=== PATIENT | female | born 1945 | race Caucasian/White ===

== ENCOUNTER → 2017-09-15 | Outpatient (CLI) | payer OTHER | LOC: BMCIMAGING 09:39 | PROVIDERS: ATTEND Family Medicine | DX: J40 Bronchitis, not specified as acute or chronic (principal) ==

== ENCOUNTER → 2017-09-26 | Outpatient (CLI) | payer OTHER | LOC: BMCIMAGING 13:34 | PROVIDERS: ATTEND Internal Medicine | DX: R53.83 Other fatigue (principal) ==

== ENCOUNTER → 2017-10-28 | Outpatient (CLI) | payer OTHER | LOC: BMCIMAGING 14:16 | PROVIDERS: ATTEND Internal Medicine | DX: R53.83 Other fatigue (principal); R09.02 Hypoxemia; Z87.01 Personal history of pneumonia (recurrent) ==

== ENCOUNTER 2018-01-05 23:00 | Observation (INO) | payer OTHER ==
--- NOTE | 2018-01-05 23:27 | EDPHY ---
H & P Stated Complaint: migraine x3 days, disoriented HPI/ROS: Chief complaint: Headache History of present illness: This is a 72-year-old female brought to the emergency department by her family for evaluation of a headache. Patient has a history of migraine headaches which she normally takes intranasal Imitrex. However this headache is different in that it is persistent, she has had it for the last 5 days. She has taken multiple doses of her Imitrex without resolution of symptoms. In addition she has had associated nausea without vomiting. This evening she started to have trouble hearing. Her daughter went to check on her and found her passed out on the couch downstairs and she was very difficult to arouse to the point the daughter almost called 911. However the patient eventually woke up. At that time the daughter brought to the patient to the emergency room. Patient states she does feel extremely dehydrated. She denies other pain including no chest pain, no shortness of breath, no cough, no abdominal pain. No paresthesias, no weakness or paralysis , no bowel or bladder dysfunction. Review of systems: A 10 point review of systems was obtained and other than described above was negative - Personal History Current Tetanus/Diphtheria Vaccine: Yes Tetanus Vaccine Date: <10yrs - Medical/Surgical History Hx Asthma: No Hx Chronic Respiratory Disease: No Hx Diabetes: No Hx Cardiac Disease: No Hx Renal Disease: No Hx Cirrhosis: No Hx Alcoholism: No Hx HIV/AIDS: No Hx Splenectomy or Spleen Trauma: No Other PMH: CHRONIC PAIN POST SHINGLES / ULCERS/DIVERTICULOSIS. Migraines - Social History Smoking Status: Never smoked - Physical Exam Exam: General Appearance: Alert, nontoxic Eyes: Pupils equal and round no pallor or injection. ENT, Mouth: Mucous membranes appear dry. Respiratory: There are no retractions, lungs are clear to auscultation. Cardiovascular: Regular rate and rhythm. Gastrointestinal: Abdomen is soft and non tender, no masses, bowel sounds normal. Neurological: Alert and oriented x4. Cranial nerves 2-12 grossly intact do appear intact. Strength and sensation intact and symmetrical. No pronator drift. No meningismus. Skin: Warm and dry, no rashes. Musculoskeletal: Neck is supple non tender. Extremities are symmetrical, full range of motion. Psychiatric: Patient is oriented X 3, there is no agitation. Constitutional: Initial Vital Signs Temperature (C) 36.5 C 01/05/18 23:02 Heart Rate 101 H 01/05/18 23:02 Respiratory Rate 18 01/05/18 23:02 Blood Pressure 117/59 L 01/05/18 23:02 O2 Sat (%) 90 L 01/05/18 23:02 O2 Delivery Mode Room Air Allergies/Adverse Reactions: hydrocodone bitartrate [From Vicodin] Allergy (Severe, Verified 04/04/16 11:25) Vomiting prochlorperazine [From Compazine] Allergy (Intermediate, Verified 04/04/16 11:25 ) Home Medications: Medication Instructions Recorded SUMAtriptan [Imitrex Nasal [place]] 20 mg NS DAILY PRN 07/18/15 Ondansetron Odt [Zofran Odt 4 mg 4 mg PO Q4 PRN #15 tab 07/21/15 (*)] oxyCODONE CR [Oxycontin] 20 mg PO TID 04/25/16 Acetaminophen [Tylenol 325mg (*)] 650 mg PO Q4 PRN #0 tab 04/29/16 Ondansetron Odt [Zofran Odt 4 mg 4 mg PO Q4 PRN #14 tab 04/29/16 (*)] oxyCODONE IR [Oxycodone Ir (RX)] 5 mg PO Q4H PRN #20 tab 04/29/16 Neurontin 01/05/18 Medical Decision Making Differential Diagnosis: Included but not limited to dehydration, anemia, electrolyte disturbances, cardiac dysrhythmia, ACS, CVA, migraine syndrome, infections including urinary tract infection or pulmonary infection Departure - Departure Referrals: Kate Lee MD [Primary Care Provider] - As per Instructions
[2018-01-05] MEDS ORDERED: NS 1,000 ML IV ONE (23:28)
--- NOTE | 2018-01-05 23:32 | CPEKG ---
Heart Rate: 94 RR Interval: 638 P-R Interval: 152 QRSD Interval: 92 QT Interval: 412 QTC Interval: 516 P Drake: 31 QRS Drake: 16 T Wave Drake: 3 EKG Severity - ABNORMAL ECG - EKG Impression: SINUS RHYTHM EKG Impression: BORDERLINE T ABNORMALITIES, ANTERIOR LEADS EKG Impression: PROLONGED QT INTERVAL Electronically Signed By: Lalito Silva 06-Jan-2018 08:25:28
[2018-01-05 23:56] LABS: PLATELET COUNT 297 10^3/uL (150-400)
[2018-01-06] MEDS ORDERED: ASPIRIN 325 MG TAB PO ONE (00:24)
[2018-01-06] MEDS ORDERED: IOPAMIDOL (ISOVUE 370) 100 ML BTL IV ONE (01:09)
[2018-01-06] MEDS ORDERED: ONDANSETRON 4 MG/2 ML VIAL IVP PRN (01:56)
[2018-01-06] MEDS ORDERED: ACETAMINOPHEN 325 MG TAB PO PRN (01:56)
[2018-01-06] MEDS ORDERED: ONDANSETRON DISINTEGRATING 4 MG TAB PO PRN (01:56)
[2018-01-06 01:57] LABS: INR 1.07 (0.83-1.16); PROTIME(PATIENT) 14.1 SEC (12.0-15.0)
--- NOTE | 2018-01-06 03:35 | PDGENHP ---
History and Physical - Chief Complaint Somnolence - History of Present Illness 72 yo F w/ hx of post-herpetic neuralgia and resultant chronic pain presents with somnolence and hypoxia. Patient lives with her daughter. Daughter found patient somnolent and difficult to arouse so EMS was called. Upon arrival in ED patient was reported to be hypoxic to the 70's on RA. She does not wear O2 usually. Of note, patient took Oxycontin 20 mg, oxycodone 10 mg, and gabapentin 300 mg this afternoon. Patient has been on stable dose of opiates for over a year but recently started taking gabapentin, which she states makes her sleepy and unsteady on her feet. Additionally, she has noted congestion, sore throat, and dry cough for the last week. Finally, she has noticed new leg swelling over the last couple of weeks as well. History Information - Allergies/Home Medication List Allergies/Adverse Reactions: hydrocodone bitartrate [From Vicodin] Allergy (Severe, Verified 04/04/16 11:25) Vomiting prochlorperazine [From Compazine] Allergy (Intermediate, Verified 04/04/16 11:25 ) Home Medications: SUMAtriptan [Imitrex Nasal [place]] 20 mg NS DAILY PRN 07/18/15 [Last Taken Unknown] oxyCODONE CR [Oxycontin] 20 mg PO TID 04/25/16 [Last Taken Unknown] Neurontin 01/05/18 [Last Taken Unknown] I have personally reviewed and updated: family history, medical history - Past Medical History Additional medical history: Post-herpetic neuralgia - Family History Additional family history: CHF. Parkinson's - Social History Smoking Status: Never smoked Review of Systems Review of Systems: ROS: 10pt was reviewed & negative except for what was stated in HPI & below Physical Exam Physical Exam: Temp Pulse Resp BP Pulse Ox 36.3 C 87 18 142/78 H 96 01/06/18 02:28 01/06/18 02:28 01/06/18 02:28 01/06/18 02:28 01/06/18 02:28 O2 (L/minute) 4 Constitutional: no apparent distress, not in pain Eyes: PERRL, EOMI Ears, Nose, Mouth, Throat: moist mucous membranes, no oral mucosal ulcers Cardiovascular: regular rate and rhythym, no murmur, rub, or gallop, JVD (3 cm above clavicle @ 45 degrees), edema (Trace b/l ANDREW) Respiratory: no respiratory distress, inspiratory crackles (Mild, bibasilar) Gastrointestinal: normoactive bowel sounds, soft, non-tender abdomen Skin: warm, normal color Musculoskeletal: full muscle strength, no muscle tenderness Neurologic: AAOx3, CN II-XII Intact Psychiatric: interacting appropriately, not anxious Lab Data & Imaging Review 01/05/18 23:45 01/05/18 23:45 WBC 9.79 10^3/uL (3.80-9.50) H 01/05/18 23:45 RBC 4.43 10^6/uL (4.18-5.33) 01/05/18 23:45 Hgb 11.4 g/dL (12.6-16.3) L 01/05/18 23:45 Hct 36.8 % (38.0-47.0) L 01/05/18 23:45 MCV 83.1 fL (81.5-99.8) 01/05/18 23:45 MCH 25.7 pg (27.9-34.1) L 01/05/18 23:45 MCHC 31.0 g/dL (32.4-36.7) L 01/05/18 23:45 RDW 15.3 % (11.5-15.2) H 01/05/18 23:45 Plt Count 297 10^3/uL (150-400) 01/05/18 23:45 MPV 8.7 fL (8.7-11.7) 01/05/18 23:45 Neut % (Auto) 87.3 % (39.3-74.2) H 01/05/18 23:45 Lymph % (Auto) 7.7 % (15.0-45.0) L 01/05/18 23:45 Gregg % (Auto) 3.6 % (4.5-13.0) L 01/05/18 23:45 Eos % (Auto) 0.1 % (0.6-7.6) L 01/05/18 23:45 Baso % (Auto) 0.3 % (0.3-1.7) 01/05/18 23:45 Nucleat RBC Rel Count 0.0 % (0.0-0.2) 01/05/18 23:45 Absolute Neuts (auto) 8.55 10^3/uL (1.70-6.50) H 01/05/18 23:45 Absolute Lymphs (auto) 0.75 10^3/uL (1.00-3.00) L 01/05/18 23:45 Absolute Monos (auto) 0.35 10^3/uL (0.30-0.80) 01/05/18 23:45 Absolute Eos (auto) 0.01 10^3/uL (0.03-0.40) L 01/05/18 23:45 Absolute Basos (auto) 0.03 10^3/uL (0.02-0.10) 01/05/18 23:45 Absolute Nucleated RBC 0.00 10^3/uL (0-0.01) 01/05/18 23:45 Immature Gran % 1.0 % (0.0-1.1) 01/05/18 23:45 Immature Gran # 0.10 10^3/uL (0.00-0.10) 01/05/18 23:45 PT 14.1 SEC (12.0-15.0) 01/06/18 00:00 INR 1.07 (0.83-1.16) 01/06/18 00:00 APTT 26.2 SEC (23.0-38.0) 01/06/18 00:00 D-Dimer 1.61 ug/mLFEU (0.00-0.50) H 01/06/18 00:00 Sodium 135 mEq/L (135-145) 01/05/18 23:45 Potassium 3.5 mEq/L (3.5-5.2) 01/05/18 23:45 Chloride 97 mEq/L (97-110) 01/05/18 23:45 Carbon Dioxide 28 mEq/l (22-31) 01/05/18 23:45 Anion Gap 10 mEq/L (8-16) 01/05/18 23:45 BUN 18 mg/dL (7-23) 01/05/18 23:45 Creatinine 1.0 mg/dL (0.6-1.0) 01/05/18 23:45 Estimated GFR 55 01/05/18 23:45 Glucose 148 mg/dL (70-100) H 01/05/18 23:45 Calcium 8.2 mg/dL (8.5-10.4) L 01/05/18 23:45 Magnesium 2.1 mg/dL (1.6-2.3) 01/05/18 23:45 Troponin I 0.061 ng/mL (0.000-0.034) H 01/05/18 23:45 NT-Pro-B Natriuret Pep 2500 pg/mL (0-125) H 01/05/18 23:45 Urine Color YELLOW 01/06/18 01:47 Urine Appearance CLEAR 01/06/18 01:47 Urine pH 6.0 (5.0-7.5) 01/06/18 01:47 Ur Specific [place] 1.032 (1.002-1.030) H 01/06/18 01:47 Urine Protein NEGATIVE (NEGATIVE) 01/06/18 01:47 Urine Ketones NEGATIVE (NEGATIVE) 01/06/18 01:47 Urine Blood 1+ (NEGATIVE) H 01/06/18 01:47 Urine Nitrate NEGATIVE (NEGATIVE) 01/06/18 01:47 Urine Bilirubin NEGATIVE (NEGATIVE) 01/06/18 01:47 Urine Urobilinogen 2.0 EU (0.2-1.0) H 01/06/18 01:47 Ur Leukocyte Esterase NEGATIVE (NEGATIVE) 01/06/18 01:47 Urine RBC 1-3 /hpf (0-3) 01/06/18 01:47 Urine WBC 1-3 /hpf (0-3) 01/06/18 01:47 Ur Epithelial Cells TRACE /lpf (NONE-1+) 01/06/18 01:47 Urine Mucus TRACE /lpf (NONE-1+) 01/06/18 01:47 Urine Glucose NEGATIVE (NEGATIVE) 01/06/18 01:47 Imaging Review: CTPE Prelim: No PE or pneumonia Multiple pulmonary nodules and thyroid nodules Called to ER @ 0210 hrs Visualized and Interpreted EKG results: Yes EKG Interpretation: Positive for: normal sinsus rhythm Assessment & Plan Assessment: 72 yo F w/ chronic pain 2/2 herpetic neuralgia presents with somnolence and hypoxia. Plan: 1. AHRF - I suspect this is multifactorial from somnolence 2/2 medications, possible new CHF, and viral URI. Patient significantly hypoxic on arrival but improved over time without intervention. She is currently only requiring 2 L/ min O2 and not in respiratory distress. CTPE negative for PE or pneumonia. - Incentive spirometry, wean O2 as able - Respiratory PCR - Management of suspected CHF as below 2. Suspected acute CHF exacerbation - Suspected on the basis of elevated JVP, new lower extremity edema, crackles, and elevated BNP. Overall this is mild and most likely only diastolic dysfunction. Patient has no prior diagnosis of CHF. - TTE ordered for evaluation - Furosemide 20 mg IV x1 - Cardiac diet, daily weights, monitor I/Os 3. Indeterminate troponin - Most likely demand ischemia from hypoxia; no complaints of chest pain. - Trend cardiac enzymes 4. Chronic pain - 2/2 post-herpetic neuralgia. She takes Oxycontin and oxycodone as outpatient. She recently started taken gabapentin, which has led to increased somnolence. - Discontinue gabapentin, decrease opiates as able over time Diet - Cardiac Code - Full Ppx - LMWH Dispo - Admit under observation status
[2018-01-06 06:34] LABS: PLATELET COUNT 325 10^3/uL (150-400)
[2018-01-06 08:29] VITALS: RESP 16
[2018-01-06] MEDS ORDERED: ENOXAPARIN 40 MG/0.4 ML SYR SC SCH (09:00)
[2018-01-06] MEDS ORDERED: FUROSEMIDE 20 MG/2 ML VIAL IVP ONE (09:00)
--- NOTE | 2018-01-06 10:40 | ECHO ---
[email or web address] [address] [address] Main: [phone] Fax: [email or web address] Echocardiogram Name: EMILIA YANG MR#: [id number] Study Date: 01/06/2018 Study Time: 07:54 AM Date of : 1945 Age: 72 year(s) Height: 162.6 cm (64 in.) Weight: 63.5 kg (140 lb.) BSA: 1.68 m2 Gender: Female Examination: Echo Indication: Question new CHF Image Quality: Contrast: Requested by: Khoa Bae BP: 166 mmHg/92 mmHg Heart Rate: Rhythm: Indication: Question new CHF Procedure Staff Gandy Dancer: Keyona Allison RDCS Reading Physician: Jace Denis MD Requesting Provider: Conclusions: Normal study Measurements: Chambers Valvular Assessment AV/MV Valvular Assessment TV/PV Normal Normal Normal Name Value Range Name Value Range Name Value Range IVSd (2D): 0.7 cm (0.6 cm-1.1 AV meanP mmHg ( - ) TR Vmax: 2.38 mm/s ( - ) cm) MV E Vmax: 0.97 m/s ( - ) TR PGmax: 23 mmHg ( - ) LVDd (2D): 5.4 cm (3.9 cm-5.3 MV A Vmax: 0.74 m/s ( - ) syst. PAP: 28 mmHg ( - ) cm) MV E/A: 1.31 ( - ) LVDs (2D): 3.0 cm (2.1 cm-4 cm) LVPWd (2D): 0.9 cm ( - ) LVOTd 2.0 cm 2.0 cm mm LVEF (MOD4): 74 % (>=55 %) EF Range: 65-70 % Continued Measurements: Chambers Valvular Assessment AV/MV Valvular Assessment TV/PV Name Value Name Value Name Value LADs: 4.3 cm MV E/E' Septal: 12.40 CVP (est.): 5 mmHg LADs Lon.0 cm MV E/E' Lateral: 12.90 LA Area: 21.8 cm2 Additional Vessels Name Value Ao Ascendin.3 cm Patient: EMILIA YANG Study Date: 01/06/2018 Page 1 of 2 07:54 AM Findings: Left Ventricle: Normal size left ventricle. No LV hypertrophy. Normal global systolic LV function. The ejection fraction is estimated to be 65-70 %. No regional wall motion abnormality. Right Ventricle: Normal size right ventricle. Left Atrium: The left atirum is borderline dilated. Right Atrium: The right atrium is normal in size. Mitral Valve: The mitral valve is normal in appearance and function. Mild mitral valve regurgitation is present. Aortic Valve: The aortic valve is normal in appearance and function. Tricuspid Valve: The tricuspid valve is normal in appearance and function. Mild tricuspid regurgitation is present. The pulmonary artery pressure is normal. Pulmonic Valve: The pulmonic valve is normal in appearance and function. Aorta: The aorta is normal. Pericardium: No pericardial effusion. There is pericardial fat. (No Signature Object) Patient: EMILIA YANG Study Date: 01/06/2018 Page 2 of 2 07:54 AM D:_[id number]
[2018-01-06 11:36] VITALS: BP 135/74; PULSE 90; TEMP 97.8; O2SAT 94
--- NOTE | 2018-01-06 12:33 | ASDISCHSUM ---
Discharge Information Plan Status: Medically Cleared to Leave: Discharge Date:01/06/2018 12:21 PM CM D/C Disposition:Against Medical Advice ADT D/C Disposition:Against Medical Advice Projected Discharge Date:01/06/2018 12:21 PM Transportation at D/C:Self Discharge Delay Reason: Follow-Up Date:01/06/2018 12:21 PM Discharge Slot: Final Diagnosis: Placement Information Patient Contact Information Contact Name:JOANN Relationship:Jose Address:[address] Home Phone: City:[place] Alternate Phone: State/Zip Code:[place] [address] Email: Financial Information Financial Class:HMO and PPO Plans Primary Plan Desc:USAMA JACQUES Primary Plan Number:[id number] Secondary Plan Desc: Secondary Plan Number: Assessment Information LACE LACE Length of stay for Answers: Less than 1 day current admission Acuity / Level of Answers: No Care: Did the patient have an inpatient admission? Comorbidities - select Answers: Congestive heart failure all that apply Opioid dependence / Chronic pain Other Notes: post herpetic neuralgia, Parkinsons, ulc ers, diverticulosis, mi gra maria luisa # of Emergency department Answers: 1-2 visits in the last 6 months Social determinants Answers: History of substance abuse (ETOH, street drugs, prescription drugs, etc.) Score: 11 Date Signed: 01/06/2018 12:31 PM Electronically Signed By:Sandra Queen RN Case Management Discharge Plan Note Case Management Discharge Discharge Order Complete? Answers: No Discharge Comments Notes: 01/06/2018 Case Management Note Pt left [facility] facility AMA. Date Signed: 01/06/2018 12:32 PM Electronically Signed By:Sandra Queen RN Intervention Information
--- NOTE | 2018-01-06 14:32 | GDS ---
[f rep st] DISCHARGE SUMMARY SUMMARY: The patient left AMA without being seen by a physician today, although she was admitted in the early hours of the evening. Please see admission history and physical by Dr. Khoa Rodrigues . The patient was admitted with somnolence in the setting of oxycodone and MS Contin. She also had hy poxemia and an indeterminate troponin. Workup here was unremarkable including an echocardiogram. The patient became inpatient for unclear reasons and left without being seen. /[id number]/MODL
== END 2018-01-06 12:21 | disposition left against medical advice (07) ==
LOC: INTOOBSV 01-06 01:14 → F2W 01-06 02:12
PROVIDERS: ADMIT Student in an Organized Health Care Education/Training Program; ATTEND Internal Medicine
DX: R09.02 Hypoxemia (principal); R40.0 Somnolence; T42.6X5A Adverse effect of other antiepileptic and sedative-hypnotic drugs, initial encounter; I51.7 Cardiomegaly; R79.89 Other specified abnormal findings of blood chemistry; E86.9 Volume depletion, unspecified; G89.29 Other chronic pain; R91.1 Solitary pulmonary nodule; E04.2 Nontoxic multinodular goiter; B02.23 Postherpetic polyneuropathy; G43.909 Migraine, unspecified, not intractable, without status migrainosus; Z79.891 Long term (current) use of opiate analgesic
CPT/HCPCS: G0378; J1650; J1940; Q9967

== ENCOUNTER 2018-01-27 23:16 | Observation (INO) | payer OTHER ==
--- NOTE | 2018-01-27 23:35 | EDPHY ---
H & P Stated Complaint: N/V Time Seen by Provider: 01/27/18 23:33 HPI/ROS: HPI CHIEF COMPLAINT: Nausea vomiting abdominal pain HISTORY OF PRESENT ILLNESS: This patient is 72-year-old female she presents emergency room nausea vomiting. She states she vomited 3-4 times. Nonbilious no blood. She reports that this started around 5:00 p.m. This evening. Denies any chest pain or shortness of breath. Of note she was recently admitted to the hospital last month for shortness of breath hypoxia possible CHF. She left the hospital against medical advice. She denies any significant shortness of breath. However main complaint this evening is vomiting with ongoing nausea. Pain in her left lower quadrant in her abdomen. Denies diarrhea. Past Medical History: Post herpetic neuralgia, hypoxia, CHF, chronic pain Past Surgical History: No recent surgery Social History: Lives locally denies drugs alcohol tobacco. Family History: Noncontributory ROS REVIEW OF SYSTEMS: A comprehensive 10 point review of systems is otherwise negative aside from elements mentioned in the history of present illness. Exam Constitutional appears well nontoxic triage nursing summary reviewed, vital signs reviewed, awake/alert. Eyes normal conjunctivae and sclera, EOMI, PERRLA. HENT normal inspection, atraumatic, moist mucus membranes, no epistaxis, neck supple/ no meningismus, no raccoon eyes. Respiratory clear to auscultation bilaterally, normal breath sounds, no respiratory distress, no wheezing. Cardiovascular rate normal, regular rhythm, no murmur, no edema, distal pulses normal. Gastrointestinal mild tender palpation lower abdomen additionally left lower quadrant,, no rebound, no guarding, normal bowel sounds, no distension, no pulsatile mass. Genitourinary no CVA tenderness. Musculoskeletal no midline vertebral tenderness, full range of motion, no calf swelling, no tenderness of extremities, no meningismus, good pulses, neurovascularly intact. Skin pink, warm, & dry, no rash, skin atraumatic. Neurologic awake, alert and oriented x 3, AAOx3, moves all 4 extremities equally, motor intact, sensory intact, CN II-XII intact, normal cerebellar, normal vision, normal speech. Psychiatric normal mood/affect. Heme/Lymph/Immune no lymphadenopathy. Differential diagnosis includes but is not limited to and in no particular order : Bowel obstruction, appendicitis, gallbladder disease, diverticulitis, colitis , enteritis, perforated viscus, gastritis, GERD, esophagitis, urinary tract infection, pyelonephritis, kidney stones Medical Decision Making: Plan for this patient IV establishment with blood draw EKG, troponin, abdominal labs, CT scan abdomen pelvis with IV contrast, gentle IV fluids, Zofran for nausea and re-evaluate. UA. Re-evaluation: EKG interpretation by me on record in [facility] system. Impression time of EKG 2344, sinus tachycardia rate of 112 T-wave abnormalities V1 V2 V3 no ST elevation and no significant ST depression similar to previous EKG dated 2017. CT scan abdomen pelvis with IV contrast shows acute diverticulitis in the left lower abdomen pelvis region. Additionally there is thickening of the bladder dome. Plan will be for admission for nausea vomiting and abdominal pain and acute diverticulitis. I have ordered the patient IV Rocephin IV Flagyl. Updated patient. Will speak with the hospitalist service for admission. CT results called to me by Dr. Hooks. Acute diverticulitis. No perforation no abscess no obstruction. Patient only wants Rocephin. Declined IV Flagyl. Source: Patient - Personal History Current Tetanus/Diphtheria Vaccine: Yes Current Tetanus Diphtheria and Acellular Pertussis (TDAP): Yes Tetanus Vaccine Date: <10yrs - Medical/Surgical History Hx Asthma: No Hx Chronic Respiratory Disease: No Hx Diabetes: No Hx Cardiac Disease: No Hx Renal Disease: No Hx Cirrhosis: No Hx Alcoholism: No Hx HIV/AIDS: No Hx Splenectomy or Spleen Trauma: No Other PMH: CHRONIC PAIN POST SHINGLES / ULCERS/DIVERTICULOSIS. Migraines - Social History Smoking Status: Never smoked Constitutional: Initial Vital Signs Temperature (C) 37.2 C 01/27/18 23:21 Heart Rate 121 H 01/27/18 23:21 Respiratory Rate 17 01/27/18 23:21 Blood Pressure 159/103 H 01/27/18 23:21 O2 Sat (%) 87 L 01/27/18 23:21 O2 Delivery Mode Room Air O2 (L/minute) 2 Allergies/Adverse Reactions: hydrocodone bitartrate [From Vicodin] Allergy (Severe, Verified 04/04/16 11:25) Vomiting prochlorperazine [From Compazine] Allergy (Intermediate, Verified 04/04/16 11:25 ) Home Medications: Medication Instructions Recorded SUMAtriptan [Imitrex Nasal [place]] 20 mg NS DAILY PRN 07/18/15 oxyCODONE CR [Oxycontin] 20 mg PO TID 04/25/16 Gabapentin [Neurontin 300 MG (*)] 300 mg PO TID 01/05/18 Diazepam [Valium 5 MG (*)] 5 mg PO TID PRN 01/06/18 oxyCODONE IR [Oxycodone Ir (RX)] 10 mg PO TID PRN 01/06/18 Medical Decision Making - Data Points Laboratory Results: Laboratory Results 01/27/18 23:37 01/27/18 23:37 Medications Given: Discontinued Medications Sodium Chloride (Ns) 1,000 mls @ 0 mls/hr IV ONCE ONE PRN Reason: Wide Open Stop: 01/27/18 23:44 Last Admin: 01/27/18 23:55 Dose: 1,000 mls Ceftriaxone Sodium/Dextrose (Rocephin 1 Gm (Premix)) 50 mls @ 100 mls/hr IV EDNOW ONE PRN Reason: Protocol Stop: 01/28/18 01:26 Last Admin: 01/28/18 01:14 Dose: 50 mls Metronidazole/Sodium Chloride (Flagyl 500 Mg (Premix)) 100 mls @ 100 mls/hr IV EDNOW ONE PRN Reason: Protocol Stop: 01/28/18 01:56 Last Admin: 01/28/18 01:14 Dose: Not Given Dextrose/Sodium Chloride (D5w 1/2 Ns) 1,000 mls @ 100 mls/hr IV CONT STEPHANIE Stop: 07/27/18 01:14 Last Admin: 01/28/18 01:56 Dose: 1,000 mls Metronidazole/Sodium Chloride (Flagyl 500 Mg (Premix)) 100 mls @ 100 mls/hr IV Q8HRS STEPHANIE PRN Reason: Protocol Stop: 02/27/18 05:59 Last Admin: 01/28/18 06:29 Dose: Not Given Ondansetron HCl (Zofran) 4 mg IVP EDNOW ONE Stop: 01/27/18 23:44 Last Admin: 01/27/18 23:55 Dose: 4 mg Ondansetron HCl (Zofran) 4 mg IVP Q4HRS PRN PRN Reason: Nausea/Vomiting, Can't Take PO Stop: 07/27/18 01:04 Last Admin: 01/28/18 06:31 Dose: 4 mg Oxycodone HCl (Oxycodone Ir) 5 - 10 mg PO Q3HRS PRN PRN Reason: Pain, Severe Able to Take PO Stop: 02/07/18 01:04 Last Admin: 01/28/18 04:55 Dose: 10 mg Departure - Departure Disposition: [facility] Acute Clinical Impression: Acute diverticulitis, Bladder wall thickening Condition: Fair
[2018-01-27] MEDS ORDERED: NS 1,000 ML IV ONE (23:43)
[2018-01-27] MEDS ORDERED: ONDANSETRON 4 MG/2 ML VIAL IVP ONE (23:43)
[2018-01-27 23:45] LABS: PLATELET COUNT 208 10^3/uL (150-400)
--- NOTE | 2018-01-27 23:46 | CPEKG ---
Heart Rate: 112 RR Interval: 536 P-R Interval: 200 QRSD Interval: 88 QT Interval: 316 QTC Interval: 432 P Goldvein: 54 QRS Goldvein: -34 T Wave Goldvein: 20 EKG Severity - ABNORMAL ECG - EKG Impression: SINUS TACHYCARDIA EKG Impression: PROBABLE LEFT ATRIAL ABNORMALITY EKG Impression: LEFT AXIS DEVIATION EKG Impression: BORDERLINE T ABNORMALITIES, ANTERIOR LEADS Electronically Signed By: Nick Brock 29-Jan-2018 11:50:24
[2018-01-27] MEDS ORDERED: IOPAMIDOL (ISOVUE-300) 100 ML BTL ONE (23:51)
[2018-01-27 23:56] LABS: INR 1.02 (0.83-1.16); PROTIME(PATIENT) 13.6 SEC (12.0-15.0)
[2018-01-28 00:19] LABS: CREATINE KINASE 32 IU/L (0-156)
[2018-01-28] MEDS ORDERED: ACETAMINOPHEN 325 MG TAB PO PRN (01:05)
[2018-01-28] MEDS ORDERED: PROMETHAZINE HCL 25 MG/ML INJ IVP PRN (01:05)
[2018-01-28] MEDS ORDERED: ONDANSETRON DISINTEGRATING 4 MG TAB PO PRN (01:05)
[2018-01-28] MEDS ORDERED: D5W 1/2 NS 1,000 ML IV SCH (01:15)
[2018-01-28] MEDS: oxyCODONE IR 5 MG TAB PO PRN ×2 (01:56→04:55)
[2018-01-28] MEDS: ONDANSETRON 4 MG/2 ML VIAL IVP PRN ×2 (02:20→06:31)
--- NOTE | 2018-01-28 02:44 | PDGENHP ---
History and Physical - Chief Complaint Abdominal pain - History of Present Illness 72 yo F w/ hx of diverticulosis p/w abdominal pain. Patient developed abdominal pain as well as nausea and vomiting today. She has had prior episodes of diverticulitis and states this felt similar. She has never had complications related to this and has never required surgery. She has noted chills but no clear fevers thus far. She notes her father had many episodes of diverticulitis as well. At the time of my evaluation she is comfortable with minimal pain after medication. History Information - Allergies/Home Medication List Allergies/Adverse Reactions: hydrocodone bitartrate [From Vicodin] Allergy (Severe, Verified 04/04/16 11:25) Vomiting prochlorperazine [From Compazine] Allergy (Intermediate, Verified 04/04/16 11:25 ) Home Medications: SUMAtriptan [Imitrex Nasal [place]] 20 mg NS DAILY PRN 07/18/15 [Last Taken ] oxyCODONE CR [Oxycontin] 20 mg PO TID 04/25/16 [Last Taken 01/05/18 09:00] Gabapentin [Neurontin 300 MG (*)] 300 mg PO TID 01/05/18 [Last Taken 01/05/18 09 :00] Diazepam [Valium 5 MG (*)] 5 mg PO TID PRN 01/06/18 [Last Taken 01/04/18] oxyCODONE IR [Oxycodone Ir (RX)] 10 mg PO TID PRN 01/06/18 [Last Taken Unknown] I have personally reviewed and updated: family history, medical history - Past Medical History Additional medical history: Post-herpetic neuralgia. Diverticulosis - Family History Additional family history: CHF. Parkinson's. Diverticulitis - Social History Smoking Status: Never smoked Review of Systems Review of Systems: ROS: 10pt was reviewed & negative except for what was stated in HPI & below Physical Exam Physical Exam: Temp Pulse Resp BP Pulse Ox 37.4 C 94 20 143/83 H 89 L 01/28/18 02:22 01/28/18 02:22 01/28/18 01:15 01/28/18 02:22 01/28/18 02:22 O2 (L/minute) 2 Constitutional: no apparent distress, appears nourished Eyes: PERRL, EOMI Ears, Nose, Mouth, Throat: moist mucous membranes, no oral mucosal ulcers Cardiovascular: regular rate and rhythym, no murmur, rub, or gallop Respiratory: no respiratory distress, clear to auscultation Gastrointestinal: normoactive bowel sounds, tenderness (LLQ), No guarding, No rebound, No distension Skin: warm, normal color Musculoskeletal: full muscle strength, no muscle tenderness Neurologic: AAOx3, CN II-XII Intact Psychiatric: interacting appropriately, not anxious Lab Data & Imaging Review 01/27/18 23:37 01/27/18 23:37 WBC 9.19 10^3/uL (3.80-9.50) 01/27/18 23:37 RBC 5.01 10^6/uL (4.18-5.33) 01/27/18 23:37 Hgb 12.9 g/dL (12.6-16.3) 01/27/18 23:37 Hct 39.4 % (38.0-47.0) 01/27/18 23:37 MCV 78.6 fL (81.5-99.8) L 01/27/18 23:37 MCH 25.7 pg (27.9-34.1) L 01/27/18 23:37 MCHC 32.7 g/dL (32.4-36.7) 01/27/18 23:37 RDW 14.4 % (11.5-15.2) 01/27/18 23:37 Plt Count 208 10^3/uL (150-400) 01/27/18 23:37 MPV 8.8 fL (8.7-11.7) 01/27/18 23:37 Neut % (Auto) 71.5 % (39.3-74.2) 01/27/18 23:37 Lymph % (Auto) 22.5 % (15.0-45.0) 01/27/18 23:37 [place] % (Auto) 4.5 % (4.5-13.0) 01/27/18 23:37 Eos % (Auto) 0.3 % (0.6-7.6) L 01/27/18 23:37 Baso % (Auto) 0.8 % (0.3-1.7) 01/27/18 23:37 Nucleat RBC Rel Count 0.0 % (0.0-0.2) 01/27/18 23:37 Absolute Neuts (auto) 6.57 10^3/uL (1.70-6.50) H 01/27/18 23:37 Absolute Lymphs (auto) 2.07 10^3/uL (1.00-3.00) 01/27/18 23:37 Absolute Monos (auto) 0.41 10^3/uL (0.30-0.80) 01/27/18 23:37 Absolute Eos (auto) 0.03 10^3/uL (0.03-0.40) 01/27/18 23:37 Absolute Basos (auto) 0.07 10^3/uL (0.02-0.10) 01/27/18 23:37 Absolute Nucleated RBC 0.00 10^3/uL (0-0.01) 01/27/18 23:37 Immature Gran % 0.4 % (0.0-1.1) 01/27/18 23:37 Immature Gran # 0.04 10^3/uL (0.00-0.10) 01/27/18 23:37 PT 13.6 SEC (12.0-15.0) 01/27/18 23:37 INR 1.02 (0.83-1.16) 01/27/18 23:37 APTT 29.1 SEC (23.0-38.0) 01/27/18 23:37 Sodium 134 mEq/L (135-145) L 01/27/18 23:37 Potassium 3.0 mEq/L (3.5-5.2) L 01/27/18 23:37 Chloride 94 mEq/L (97-110) L 01/27/18 23:37 Carbon Dioxide 27 mEq/l (22-31) 01/27/18 23:37 Anion Gap 13 mEq/L (8-16) 01/27/18 23:37 BUN 9 mg/dL (7-23) 01/27/18 23:37 Creatinine 0.7 mg/dL (0.6-1.0) 01/27/18 23:37 Estimated GFR > 60 01/27/18 23:37 Glucose 151 mg/dL (70-100) H 01/27/18 23:37 Calcium 8.5 mg/dL (8.5-10.4) 01/27/18 23:37 Magnesium 1.7 mg/dL (1.6-2.3) 01/27/18 23:37 Total Bilirubin 0.9 mg/dL (0.1-1.4) 01/27/18 23:37 Conjugated Bilirubin 0.5 mg/dL (0.0-0.5) 01/27/18 23:37 Unconjugated Bilirubin 0.4 mg/dL (0.0-1.1) 01/27/18 23:37 AST 28 IU/L (14-46) 01/27/18 23:37 ALT 36 IU/L (9-52) 01/27/18 23:37 Alkaline Phosphatase 95 IU/L (38-126) 01/27/18 23:37 Creatine Kinase 32 IU/L (0-156) 01/27/18 23:37 CK-MB (CK-2) Fraction < 0.22 ng/mL (0.00-3.19) 01/27/18 23:37 Troponin I < 0.012 ng/mL (0.000-0.034) 01/27/18 23:37 NT-Pro-B Natriuret Pep 164 pg/mL (0-125) H 01/27/18 23:37 Total Protein 7.3 g/dL (6.3-8.2) 01/27/18 23:37 Albumin 3.7 g/dL (3.5-5.0) 01/27/18 23:37 Lipase 21 IU/L (23-300) L 01/27/18 23:37 Urine Color YELLOW 01/27/18 00:01 Urine Appearance CLEAR 01/27/18 00:01 Urine pH 6.0 (5.0-7.5) 01/27/18 00:01 Ur Specific [place] 1.015 (1.002-1.030) 01/27/18 00:01 Urine Protein NEGATIVE (NEGATIVE) 01/27/18 00:01 Urine Ketones NEGATIVE (NEGATIVE) 01/27/18 00:01 Urine Blood 2+ (NEGATIVE) H 01/27/18 00:01 Urine Nitrate NEGATIVE (NEGATIVE) 01/27/18 00:01 Urine Bilirubin NEGATIVE (NEGATIVE) 01/27/18 00: Urine Urobilinogen NEGATIVE EU (0.2-1.0) 01/27/18 00:01 Ur Leukocyte Esterase NEGATIVE (NEGATIVE) 01/27/18 00:01 Urine RBC 3-5 /hpf (0-3) H 01/27/18 00:01 Urine WBC 1-3 /hpf (0-3) 01/27/18 00:01 Ur Epithelial Cells TRACE /lpf (NONE-1+) 01/27/18 00:01 Urine Mucus TRACE /lpf (NONE-1+) 01/27/18 00:01 Urine Glucose NEGATIVE (NEGATIVE) 01/27/18 00:01 Imaging Review: CT A/P Prelim: recurrent diverticulitis- constipation new bladder dome thickening-?reactive inflammatory vs lack of distention vs neoplasm. Consider followup CT after the diverticular inflammation has resolved called Louie at 1am TODD Assessment & Plan Assessment: 72 yo F p/w uncomplicated diverticulitis. Plan: 1. Diverticulitis - Uncomplicated per CT scan. This represents a recurrent episode. She has not required surgical intervention in the past. - NPO, mIVF, anti-emetics - CTX, Flagyl IV - Advance diet as tolerated - Oxycodone and morphine PRN for pain control Diet - NPO, ADAT Code - Full Ppx - SCDs Dispo - Admit under observation status
[2018-01-28 06:49] LABS: PLATELET COUNT 202 10^3/uL (150-400)
[2018-01-28 10:17] VITALS: BP 121/69
--- NOTE | 2018-01-28 10:50 | GDS ---
[f rep st] DISCHARGE SUMMARY DIAGNOSES: 1. Recurrent diverticulitis. 2. History of migraines. 3. Post-herpetic neuralgia. 4. New thickening of the urinary bladder dome. Needs further evaluation as an outpatient with ultra sound with distended bladder or urologic consultation. 5. Migraines. PROCEDURES DONE: CT scan of the abdomen and pelvis consistent with recurrent diverticulitis, constip ation, and new thickening of the urinary bladder dome that could be inflammatory and secondary to the patient's diverticulitis or represent new urinary bladder wall thickening that is unrelated. We rec ommend further followup. HOSPITAL COURSE: The patient is a 72-year-old with a history of recurrent diverticulitis. She was a dmitted for treatment and given a dose of antibiotics including ceftriaxone and Flagyl. She was ther e for a few hours. However, prior to my followup evaluation in the morning, she opted to leave again st medical advice. She would not wait for me to get to her room, but wanted to leave immediately. T he nurse called me and had her sign out against medical advice. I have not yet met her. Pending roni dies are pending. Workup includes recurrent diverticulitis. She will follow up with her primary car e provider, Dr. Lee, for that. She has an abnormal bladder wall noted on CT, which may be secondar y to inflammation, but should have followup. She also was mildly hypokalemic and again refused to st ay long enough to be treated for this in the hospital. The nurse did attempt to convince her to stay long enough for me to see the patient; however, she refused and left immediately upon her decision. DISCHARGE MEDICATIONS: She will resume her home meds; she did not wait long enough to get any prescr iption medications. FOLLOWUP: She should follow up with her primary care provider Dr. Kate Lee. The patient left [facility] medical advice. /[id number]/MODL
== END 2018-01-28 08:48 | disposition left against medical advice (07) ==
LOC: FOB 01-28 01:40
PROVIDERS: ADMIT Student in an Organized Health Care Education/Training Program; ATTEND Student in an Organized Health Care Education/Training Program
DX: K57.32 Diverticulitis of large intestine without perforation or abscess without bleeding (principal); R09.02 Hypoxemia; I50.9 Heart failure, unspecified; N32.9 Bladder disorder, unspecified; B02.29 Other postherpetic nervous system involvement; G43.909 Migraine, unspecified, not intractable, without status migrainosus; Z88.6 Allergy status to analgesic agent
CPT/HCPCS: 96374; G0378; J0696; J2405; Q9967

== ENCOUNTER 2018-02-26 06:42 | Emergency (ER) | payer OTHER ==
[2018-02-26] MEDS ORDERED: ONDANSETRON 4 MG/2 ML VIAL IVP ONE ×2 (07:27→09:30)
[2018-02-26] MEDS ORDERED: NS 1,000 ML IV ONE ×2 (07:27→07:38)
--- NOTE | 2018-02-26 07:41 | EDPHY ---
H & P Stated Complaint: VOMITING ALL NIGHT Time Seen by Provider: 02/26/18 07:28 HPI/ROS: CHIEF COMPLAINT: Nausea vomiting HISTORY OF PRESENT ILLNESS: Patient is a 72-year-old female who presents to the emergency department this morning with her [id number] complaining of nausea and vomiting throughout the night. She thinks that she vomited about 5 times. Nonbloody. No diarrhea. No fever. No abdominal pain. She was admitted 1 month ago for recurrent diverticulitis. She was treated with IV antibiotics but then left AMA the next day. She was able to complete a course of oral antibiotics at home and followed up with her primary Dr. Moraes about some thickening seen on her bladder CT. She states that the symptoms are completely resolved and she currently has no abdominal pain tenderness. She was concerned however because one time potassium was low after vomiting and she wants to have this checked. She felt well yesterday. She states that Zofran worked well for her but she man out after last admission. REVIEW OF SYSTEMS: Constitutional: denies: chills, fever, recent illness, recent injury EENTM: denies: blurred vision, double vision, nose congestion Respiratory: denies: cough, shortness of breath Cardiac: denies: chest pain, irregular heart rate, lightheadedness, palpitations Gastrointestinal/Abdominal: See HPI denies: abdominal pain, diarrhea, blood streaked stools Genitourinary: denies: dysuria, frequency, hematuria, pain Musculoskeletal: denies: joint pain, muscle pain Skin: denies: lesions, rash, jaundice, bruising Neurological: denies: headache, numbness, paresthesia, tingling, dizziness, weakness Hematologic/Lymphatic: denies: blood clots, easy bleeding, easy bruising Immunologic/allergic: denies: HIV/AIDS, transplant EXAM: GENERAL: Well-appearing, well-nourished and in no acute distress. HEAD: Atraumatic, normocephalic. EYES: Pupils equal round and reactive to light, extraocular movements intact, sclera anicteric, conjunctiva are normal. ENT: TMs normal, nares patent, oropharynx clear without exudates. Moist mucous membranes. NECK: Normal range of motion, supple without lymphadenopathy or JVD. LUNGS: Breath sounds clear to auscultation bilaterally and equal. No wheezes rales or rhonchi. HEART: Regular rate and rhythm without murmurs, rubs or gallops. ABDOMEN: Soft, nontender, normoactive bowel sounds. No guarding, no rebound. No masses appreciated. BACK: No CVA tenderness, no spinal tenderness, step-offs or deformities EXTREMITIES: Normal range of motion, no pitting or edema. No clubbing or cyanosis. NEUROLOGICAL: Cranial nerves II through XII grossly intact. Normal speech, normal gait. 5/5 strength, normal movement in all extremities, normal sensation PSYCH: Normal mood, normal affect. SKIN: Warm, dry, normal turgor, no visible rashes or lesions. Source: Patient Exam Limitations: No limitations - Personal History Current Tetanus Diphtheria and Acellular Pertussis (TDAP): Yes Tetanus Vaccine Date: <10yrs - Medical/Surgical History Hx Asthma: No Hx Chronic Respiratory Disease: No Hx Diabetes: No Hx Cardiac Disease: No Hx Renal Disease: No Hx Cirrhosis: No Hx Alcoholism: No Hx HIV/AIDS: No Hx Splenectomy or Spleen Trauma: No Other PMH: CHRONIC PAIN POST SHINGLES / ULCERS. Migraines, HTN, PNA-USES O2, diverticulitis - Family History Significant Family History: No pertinent family hx - Social History Smoking Status: Never smoked Alcohol Use: Sober Drug Use: None Constitutional: Initial Vital Signs Temperature (C) 36.7 C 02/26/18 06:48 Heart Rate 93 02/26/18 06:48 Respiratory Rate 16 02/26/18 06:48 Blood Pressure 157/109 H 02/26/18 06:48 O2 Sat (%) 92 02/26/18 06:48 O2 Delivery Mode Room Air Allergies/Adverse Reactions: hydrocodone bitartrate [From Vicodin] Allergy (Severe, Verified 04/04/16 11:25) Vomiting prochlorperazine [From Compazine] Allergy (Intermediate, Verified 04/04/16 11:25 ) ciprofloxacin [From Cipro] Allergy (Verified 02/26/18 06:47) Home Medications: Medication Instructions Recorded SUMAtriptan [Imitrex Nasal [place]] 20 mg NS DAILY PRN 07/18/15 oxyCODONE CR [Oxycontin] 20 mg PO TID 04/25/16 Diazepam [Valium 5 MG (*)] 5 mg PO TID PRN 03/19/18 oxyCODONE IR [Oxycodone Ir (RX)] 10 mg PO TID PRN 01/06/18 Ondansetron Odt [Zofran Odt 4 mg 4 mg PO Q4 PRN #20 tab 02/26/18 (RX)] Medical Decision Making - Diagnostics EKG Interpretation: An EKG obtained and was read and documented in trace view. Please see trace view for full reading and report. Sinus rhythm, no acute ischemic changes, similar to previous ED Course/Re-evaluation: 9:20 a.m. the patient is feeling much better. She is walking to the bathroom. Her abdominal exam remains benign. She like to have another dose of Zofran. She has not vomited here. She is eager to go home. 10:15 a.m. the patient continues to feel well and is eager to go home. She declines any further observation or intervention. Differential Diagnosis: Partial list of the Differential diagnosis considered include but were not limited to; vomiting, dehydration, gastritis and although unlikely based on the history and physical exam, I also considered diverticulitis, perforation, ischemia, volvulus, urinary tract infection. I discussed these differential diagnoses and the plan with the patient as well as the usual and expected course. The patient understands that the diagnosis is provisional and that in medicine we are not always correct and that further workup is often warranted. Usual and customary warnings were given. All of the patient's questions were answered. The patient was instructed to return to the emergency department should the symptoms at all worsen or return, otherwise to followup with the physician as we discussed. - Data Points Laboratory Results: Laboratory Results 02/26/18 07:51 02/26/18 07:51 02/26/18 02/26/18 07:51 07:51 WBC 10.07 10^3/uL H 10^3/uL (3.80-9.50) RBC 4.85 10^6/uL 10^6/uL (4.18-5.33) Hgb 12.5 g/dL L g/dL (12.6-16.3) Hct 38.9 % % (38.0-47.0) MCV 80.2 fL L fL (81.5-99.8) MCH 25.8 pg L pg (27.9-34.1) MCHC 32.1 g/dL L g/dL (32.4-36.7) RDW 15.3 % H % (11.5-15.2) Plt Count 299 10^3/uL 10^3/uL (150-400) MPV 8.5 fL L fL (8.7-11.7) Neut % (Auto) 67.4 % % (39.3-74.2) Lymph % (Auto) 25.1 % % (15.0-45.0) [place] % (Auto) 6.3 % % (4.5-13.0) Eos % (Auto) 0.5 % L % (0.6-7.6) Baso % (Auto) 0.4 % % (0.3-1.7) Nucleat RBC Rel Count 0.0 % % (0.0-0.2) Absolute Neuts (auto) 6.79 10^3/uL H 10^3/uL (1.70-6.50) Absolute Lymphs (auto) 2.53 10^3/uL 10^3/uL (1.00-3.00) Absolute Monos (auto) 0.63 10^3/uL 10^3/uL (0.30-0.80) Absolute Eos (auto) 0.05 10^3/uL 10^3/uL (0.03-0.40) Absolute Basos (auto) 0.04 10^3/uL 10^3/uL (0.02-0.10) Absolute Nucleated RBC 0.00 10^3/uL 10^3/uL (0-0.01) Immature Gran % 0.3 % % (0.0-1.1) Immature Gran # 0.03 10^3/uL 10^3/uL (0.00-0.10) Sodium 135 mEq/L mEq/L (135-145) Potassium 3.7 mEq/L mEq/L (3.5-5.2) Chloride 92 mEq/L L mEq/L (97-110) Carbon Dioxide 32 mEq/l H mEq/l (22-31) Anion Gap 11 mEq/L mEq/L (8-16) BUN 10 mg/dL mg/dL (7-23) Creatinine 0.6 mg/dL mg/dL (0.6-1.0) Estimated GFR > 60 Glucose 119 mg/dL H mg/dL (70-100) Calcium 8.3 mg/dL L mg/dL (8.5-10.4) Total Bilirubin 1.5 mg/dL H mg/dL (0.1-1.4) Conjugated Bilirubin 0.8 mg/dL H mg/dL (0.0-0.5) Unconjugated Bilirubin 0.7 mg/dL mg/dL (0.0-1.1) AST 33 IU/L IU/L (14-46) ALT 22 IU/L IU/L (9-52) Alkaline Phosphatase 107 IU/L IU/L (38-126) Total Protein 7.9 g/dL g/dL (6.3-8.2) Albumin 3.8 g/dL g/dL (3.5-5.0) Lipase 22 IU/L L IU/L (23-300) Specimen Hemolysis 170 Medications Given: Discontinued Medications Sodium Chloride (Ns) 1,000 mls @ 0 mls/hr IV ONCE ONE PRN Reason: Wide Open Stop: 02/26/18 07:28 Last Admin: 02/26/18 09:27 Dose: 1,000 mls Sodium Chloride (Ns) 1,000 mls @ 0 mls/hr IV EDNOW ONE; Wide Open PRN Reason: Protocol Stop: 02/26/18 07:39 Last Admin: 02/26/18 07:48 Dose: 1,000 mls Ondansetron HCl (Zofran) 4 mg IVP EDNOW ONE Stop: 02/26/18 07:28 Last Admin: 02/26/18 07:54 Dose: 4 mg Ondansetron HCl (Zofran Odt 4 Mg Prepack#2) 1 btl TAKEHOME EDNOW ONE Stop: 02/26/18 09:26 Last Admin: 02/26/18 10:24 Dose: 1 btl Ondansetron HCl (Zofran) 4 mg IVP EDNOW ONE Stop: 02/26/18 09:31 Last Admin: 02/26/18 09:32 Dose: 4 mg Departure - Departure Disposition: Home, Routine, Self-Care Clinical Impression: Dehydration Nausea & vomiting Qualifiers: Vomiting type: unspecified Vomiting Intractability: non-intractable Qualified Code(s): R11.2 - Nausea with vomiting, unspecified Condition: Fair Instructions: Ondansetron (By mouth), Acute Nausea and Vomiting (ED) Referrals: Kate Lee MD [Primary Care Provider] - As per Instructions Prescriptions: Ondansetron Odt [Zofran Odt 4 mg (RX)] 4 mg PO Q4 PRN #20 tab PRN Reason: Nausea & Vomiting
[2018-02-26 07:57] LABS: PLATELET COUNT 299 10^3/uL (150-400)
[2018-02-26] MEDS ORDERED: ONDANSETRON 4MG PREPACK#2 BTL TAKEHOME ONE (09:25)
[2018-02-26] MEDS ORDERED: ONDANSETRON 4 MG/2 ML VIAL ONE (09:28)
--- NOTE | 2018-02-26 09:32 | CPEKG ---
Heart Rate: 84 RR Interval: 714 P-R Interval: 156 QRSD Interval: 92 QT Interval: 452 QTC Interval: 535 P [place]: 37 QRS [place]: -30 T Wave [place]: -17 EKG Severity - ABNORMAL ECG - EKG Impression: SINUS RHYTHM EKG Impression: LEFT AXIS DEVIATION EKG Impression: PROBABLE LEFT VENTRICULAR HYPERTROPHY EKG Impression: BORDERLINE T ABNORMALITIES, INFERIOR LEADS EKG Impression: Similar to previous Electronically Signed By: Usman Meyer 26-Feb-2018 09:34:19
[2018-02-26 10:19] VITALS: BP 182/85
== END 2018-02-26 10:32 | disposition home or self-care (01) ==
DX: R11.2 Nausea with vomiting, unspecified (principal); E86.0 Dehydration; I10 Essential (primary) hypertension
CPT/HCPCS: 96374; J2405

== ENCOUNTER 2018-05-18 06:55 | Inpatient (IN) | payer OTHER ==
--- NOTE | 2018-05-18 07:44 | EDPHY ---
H & P Stated Complaint: low oxygen, cough, weakness Time Seen by Provider: 05/18/18 07:17 HPI/ROS: CHIEF COMPLAINT: Hypoxia, generalized weakness Limitations: Confusion, decreased memory for recent events HISTORY OF PRESENT ILLNESS: 72-year-old female with history of pneumonia presents with hypoxia and generalized weakness. She was hospitalized for pneumonia in November 2017 and since that admission she has required home oxygen at night, and sometimes during the day. Over the past 6 weeks, she has experienced increasing generalized weakness and a dry cough, associated with decreased appetite and a 20 lb weight loss. Multiple falls while walking, uses a walker at home. Oxygen saturation 48% on room air 2 days ago. Now too weak to ambulate safely and is confused. She uses 2 L of oxygen at night, and sometimes uses oxygen during the day. No chest pain or fever. REVIEW OF SYSTEMS: complete 10 point ROS negative except at noted in the HPI - Personal History Tetanus Vaccine Date: <10yrs - Medical/Surgical History Hx Asthma: No Hx Chronic Respiratory Disease: No Hx Diabetes: No Hx Cardiac Disease: No Hx Renal Disease: No Hx Cirrhosis: No Hx Alcoholism: No Hx HIV/AIDS: No Hx Splenectomy or Spleen Trauma: No Other PMH: CHRONIC PAIN POST SHINGLES / ULCERS. Migraines, HTN, PNA-USES O2, diverticulitis - Social History Smoking Status: Never smoked Additional Social History: Lives in own home with a friend who is the medical power of business attorney for healthcare - Physical Exam Exam: General Appearance: Alert, pleasant, confused, oxygen saturation 96% on 4 L by nasal cannula Eyes: Pupils equal and round, no conjunctival pallor ENT, Mouth: Mucous membranes moist Neck: Normal inspection Respiratory: Normal respiratory rate, Lungs are clear to auscultation Cardiovascular: Regular rate and rhythm Gastrointestinal: Abdomen is soft and nontender Neurological: Alert and oriented, nonfocal exam Skin: Warm and dry Extremities: Left lower extremity swelling Psychiatric: Mood and affect normal Constitutional: Initial Vital Signs Temperature (C) 36.6 C 05/18/18 06:59 Heart Rate 104 H 05/18/18 06:59 Respiratory Rate 20 05/18/18 06:59 Blood Pressure 146/79 H 05/18/18 06:59 O2 Sat (%) 72 L 05/18/18 06:59 O2 Delivery Mode Nasal Cannula O2 (L/minute) 5 Allergies/Adverse Reactions: hydrocodone bitartrate [From Vicodin] Allergy (Severe, Verified 05/18/18 06:59) Vomiting prochlorperazine [From Compazine] Allergy (Intermediate, Verified 05/18/18 06:59 ) ciprofloxacin [From Cipro] Allergy (Verified 05/18/18 06:59) Home Medications: Medication Instructions Recorded SUMAtriptan [Imitrex Nasal [place]] 20 mg NS DAILY PRN 07/18/15 oxyCODONE CR [Oxycontin] 20 mg PO BID 04/25/16 oxyCODONE IR [Oxycodone Ir (RX)] 10 mg PO TID PRN 01/06/18 Ondansetron Odt [Zofran Odt 4 mg 4 mg PO Q4 PRN #20 tab 02/26/18 (RX)] Gabapentin [Neurontin 300 MG (*)] 300 mg PO Q8H 05/18/18 Medical Decision Making - Diagnostics EKG Interpretation: EKG interpreted by me reveals normal sinus rhythm, rate 92, right bundle branch block pattern, diffuse T-wave changes. Interpretation: Abnormal EKG Imaging Results: Imaging Impressions Chest/Thorax CTA 05/18/18 07:39 Impression: 1. Moderate volume of acute thrombopulmonary embolic disease. No evidence of right heart strain. 2. Minimal right upper lobe atelectasis. 3. Benign unchanged pulmonary nodules scattered throughout the right and left lung are unchanged since 2015. 4. New mild compression fractures at T5 and T8 since December 2017. Findings discussed with Emergency Department physician, Paige Kauffman on 2017, 9:20. Extremity Venous Study 05/18/18 07:40 Impression: Acute deep venous thrombosis involving the popliteal and paired peroneal and posterior tibial veins in the calf. Findings discussed with Emergency Department physician, Paige Kauffman on 2017, 9:15. Imaging: Discussed imaging studies w/ yardage caller Radiologist, I viewed and interpreted images myself ED Course/Re-evaluation: This pt presents with hypoxia, generalized weakness and confusion. Physical exam reveals hypoxia, with a normal lung exam and left lower extremity swelling. Clinical presentation concerning for acute pulmonary embolism. Less likely pneumonia, CHF. Stat EKG reveals diffuse nonspecific T-wave changes, troponin positive at 0.36. Left lower extremity ultrasound read by Dr. Flynn Oneill reveals DVT. CT pulmonary angiogram reveals moderate volume pulmonary embolism bilaterally. The patient and her caregiver were informed. Agree to treatment with heparin, risks and benefits discussed. Heparin per protocol initiated. Hospitalist service was consulted for admission. Pt also has hypokalemia on initial labs. KCL 40meq orally given. Repeat Chem 7 ordered, will verify hypokalemia prior to initiating IV potassium. Repeat K+ 2.4, IV KCL 10meq given. Pt also has hyponatremia and hypocalcemia, likely contributing to confusion. Gentle IVF given, calcium will need replacement, but can wait for now, as Heparin infusing via 1st IV, KCl through 2nd IV. The hospitalist service was consulted for admission. Will admit to SDU as pt requires close monitoring and care. I spent a total of 45 minutes of critical care time in obtaining history, performing a physical exam, bedside monitoring of interventions, collecting and interpreting tests and discussion with consultants but not including time spent performing procedures. Organ at risk: pulmonary Differential Diagnosis: Differential diagnosis includes though it is not limited to pneumonia, pneumothorax, pulmonary embolism, aortic dissection, pericarditis, acute coronary syndrome. - Data Points Laboratory Results: Laboratory Results 05/18/18 07:50 05/18/18 08:50 05/18/18 05/18/18 05/18/18 08:50 08:50 07:50 WBC RBC Hgb POC Hgb Hct POC Hct MCV MCH MCHC RDW Plt Count MPV Neut % (Auto) Lymph % (Auto) Jefferson % (Auto) Eos % (Auto) Baso % (Auto) Nucleat RBC Rel Count Absolute Neuts (auto) Absolute Lymphs (auto) Absolute Monos (auto) Absolute Eos (auto) Absolute Basos (auto) Absolute Nucleated RBC Immature Gran % Seg Neutrophils % Band Neutrophils % Lymphocytes % Monocytes % Eosinophils % Basophils % Metamyelocytes % Myelocytes % Promyelocytes % Blast Cells % Immature Gran # Absolute Seg Neuts Absolute Band Neuts Absolute Lymphocytes Absolute Monocytes Absolute Eosinophils Absolute Basophils Absolute Metamyelocyte Absolute Myelocytes Absolute Promyelocytes Absolute Plasma Cells Nucleated RBCs Absolute Blast Cells Plasma Cells % Platelet Estimate Polychromasia Microcytic Cells Tear Drop Cells Smear Review By PT 16.0 SEC H SEC (12.0-15.0) INR 1.26 H (0.83-1.16) APTT 25.0 SEC SEC (23.0-38.0) POC Sodium Sodium 124 mEq/L L mEq/L (135-145) POC Potassium Potassium Cancelled 2.4 mEq/L L* mEq/L (3.3-5.0) POC Chloride Chloride 71 mEq/L L mEq/L (97-110) Carbon Dioxide 41 mEq/l H* mEq/l (22-31) Anion Gap 12 mEq/L mEq/L (8-16) POC BUN BUN 19 mg/dL mg/dL (7-23) Creatinine 0.7 mg/dL mg/dL (0.6-1.0) POC Creatinine Estimated GFR > 60 Glucose 117 mg/dL H mg/dL (70-100) POC Glucose Calcium 7.0 mg/dL L mg/dL (8.5-10.4) Magnesium 1.3 mg/dL L mg/dL (1.6-2.3) POC Troponin I NT-Pro-B Natriuret Pep 05/18/18 05/18/18 05/18/18 07:50 07:50 07:50 WBC 9.01 10^3/uL 10^3/uL (3.80-9.50) RBC 3.93 10^6/uL L 10^6/uL (4.18-5.33) Hgb 10.7 g/dL L g/dL (12.6-16.3) POC Hgb 12.2 gm/dL L gm/dL (12.6-16.3) Hct 32.4 % L % (38.0-47.0) POC Hct 36 % L % (38-47) MCV 82.4 fL fL (81.5-99.8) MCH 27.2 pg L pg (27.9-34.1) MCHC 33.0 g/dL g/dL (32.4-36.7) RDW 17.1 % H % (11.5-15.2) Plt Count 199 10^3/uL 10^3/uL (150-400) MPV 8.7 fL fL (8.7-11.7) Neut % (Auto) Not Reported Lymph % (Auto) Not Reported Jefferson % (Auto) Not Reported Eos % (Auto) Not Reported Baso % (Auto) Not Reported Nucleat RBC Rel Count Not Reported Absolute Neuts (auto) Not Reported Absolute Lymphs (auto) Not Reported Absolute Monos (auto) Not Reported Absolute Eos (auto) Not Reported Absolute Basos (auto) Not Reported Absolute Nucleated RBC Not Reported Immature Gran % Not Reported Seg Neutrophils % 74.0 % % Band Neutrophils % 7.0 % % Lymphocytes % 13.0 % % Monocytes % 3.0 % % Eosinophils % 0 % % Basophils % 0 % % Metamyelocytes % 1.0 % % Myelocytes % 2.0 % % Promyelocytes % 0 % % Blast Cells % 0 % % Immature Gran # Not Reported Absolute Seg Neuts 6.67 10^/uL H 10^/uL (1.70-6.50) Absolute Band Neuts 0.63 10^3/uL 10^3/uL (0.00-0.70) Absolute Lymphocytes 1.17 10^3/uL 10^3/uL (1.00-3.00) Absolute Monocytes 0.27 10^3/uL L 10^3/uL (0.30-0.80) Absolute Eosinophils 0.00 10^3/uL L 10^3/uL (0.03-0.40) Absolute Basophils 0.00 10^3/uL L 10^3/uL (0.02-0.10) Absolute Metamyelocyte 0.09 10^3/mL H 10^3/mL (0.00-0.00) Absolute Myelocytes 0.18 10^3/mL H 10^3/mL (0.00-0.00) Absolute Promyelocytes 0.00 10^3/uL 10^3/uL (0.00-0.00) Absolute Plasma Cells 0.00 10^3/uL 10^3/uL (0.00-0.00) Nucleated RBCs 3.0 /100 WBC H /100 WBC (0-0) Absolute Blast Cells 0.00 10^3/uL 10^3/uL (0.00-0.00) Plasma Cells % 0 % % Platelet Estimate ADEQUATE (ADEQ) Polychromasia 1+ H Microcytic Cells 1+ H Tear Drop Cells 1+ H Smear Review By Pending PT INR APTT POC Sodium 125 mEq/L L mEq/L (135-145) Sodium 122 mEq/L L mEq/L (135-145) POC Potassium < 2.0 mEq/L L* mEq/L (3.3-5.0) Potassium 2.0 mEq/L L* mEq/L (3.3-5.0) POC Chloride 70 mEq/L L mEq/L (97-110) Chloride 72 mEq/L L mEq/L (97-110) Carbon Dioxide 38 mEq/l H mEq/l (22-31) Anion Gap 12 mEq/L mEq/L (8-16) POC BUN 15 mg/dL mg/dL (7-23) BUN 19 mg/dL mg/dL (7-23) Creatinine 0.8 mg/dL mg/dL (0.6-1.0) POC Creatinine 0.9 mg/dL mg/dL (0.6-1.0) Estimated GFR > 60 Glucose 125 mg/dL H mg/dL (70-100) POC Glucose 126 mg/dL H mg/dL (70-100) Calcium 7.2 mg/dL L mg/dL (8.5-10.4) Magnesium POC Troponin I NT-Pro-B Natriuret Pep 7220 pg/mL H pg/mL (0-125) 05/18/18 07:49 WBC RBC Hgb POC Hgb Hct POC Hct MCV MCH MCHC RDW Plt Count MPV Neut % (Auto) Lymph % (Auto) Jefferson % (Auto) Eos % (Auto) Baso % (Auto) Nucleat RBC Rel Count Absolute Neuts (auto) Absolute Lymphs (auto) Absolute Monos (auto) Absolute Eos (auto) Absolute Basos (auto) Absolute Nucleated RBC Immature Gran % Seg Neutrophils % Band Neutrophils % Lymphocytes % Monocytes % Eosinophils % Basophils % Metamyelocytes % Myelocytes % Promyelocytes % Blast Cells % Immature Gran # Absolute Seg Neuts Absolute Band Neuts Absolute Lymphocytes Absolute Monocytes Absolute Eosinophils Absolute Basophils Absolute Metamyelocyte Absolute Myelocytes Absolute Promyelocytes Absolute Plasma Cells Nucleated RBCs Absolute Blast Cells Plasma Cells % Platelet Estimate Polychromasia Microcytic Cells Tear Drop Cells Smear Review By PT INR APTT POC Sodium Sodium POC Potassium Potassium POC Chloride Chloride Carbon Dioxide Anion Gap POC BUN BUN Creatinine POC Creatinine Estimated GFR Glucose POC Glucose Calcium Magnesium POC Troponin I 0.36 ng/mL H ng/mL (0.00-0.08) NT-Pro-B Natriuret Pep Medications Given: Potassium Chloride 40 meq/ (Sodium Chloride) 1,000 mls @ 100 mls/hr IV CONT STEPHANIE Stop: 11/14/18 17:29 Last Admin: 05/18/18 18:38 Dose: 1,000 mls Discontinued Medications Heparin Sodium (Porcine) (Heparin Injection) 0 unit IVP EDNOW ONE Stop: 05/18/18 09:19 Last Admin: 05/18/18 09:27 Dose: 4,640 units Heparin Sodium (Porcine) (Heparin 50 Units/Ml (Premix)) 500 mls @ 0 mls/hr IV EDNOW ONE; Per Protocol PRN Reason: Protocol Stop: 05/18/18 09:19 Last Admin: 05/18/18 09:28 Dose: 500 mls Potassium Chloride (Potassium Cl 10 Meq (Premix)) 100 mls @ 100 mls/hr IV EDNOW ONE Stop: 05/18/18 10:35 Last Admin: 05/18/18 10:00 Dose: 100 mls Sodium Chloride (Ns) 250 mls @ 1,500 mls/hr IV ONCE ONE Stop: 05/18/18 13:06 Last Admin: 05/18/18 14:23 Dose: 250 mls Magnesium Sulfate (Magnesium Sulf 2 Gm (Premix)) 50 mls @ 50 mls/hr IV ONCE ONE Stop: 05/18/18 14:47 Last Admin: 05/18/18 14:19 Dose: 50 mls Potassium Chloride (Potassium Cl 10 Meq (Premix)) 100 mls @ 100 mls/hr IV Q1H STEPHANIE Stop: 05/18/18 18:29 Last Admin: 05/18/18 17:41 Dose: 100 mls Magnesium Sulfate (Magnesium Sulf 2 Gm (Premix)) 50 mls @ 50 mls/hr IV ONCE ONE Stop: 05/18/18 17:23 Last Admin: 05/18/18 16:31 Dose: 50 mls Potassium Chloride (Klor-Con) 40 meq PO EDNOW ONE Stop: 05/18/18 08:23 Last Admin: 05/18/18 08:52 Dose: 40 meq Potassium Chloride (Potassium Chloride Oral Liquid) 40 meq PO ONCE ONE Stop: 05/18/18 16:24 Last Admin: 05/18/18 16:48 Dose: 40 meq Point of Care Test Results: Chemistry 05/18/18 05/18/18 07:50 07:49 POC Sodium 125 mEq/L L mEq/L (135-145) POC Potassium < 2.0 mEq/L L* mEq/L (3.3-5.0) POC Chloride 70 mEq/L L mEq/L (97-110) POC BUN 15 mg/dL mg/dL (7-23) POC Creatinine 0.9 mg/dL mg/dL (0.6-1.0) POC Glucose 126 mg/dL H mg/dL (70-100) POC Troponin I 0.36 ng/mL H ng/mL (0.00-0.08) ISTAT H&H 05/18/18 07:50 POC Hgb 12.2 gm/dL L gm/dL (12.6-16.3) POC Hct 36 % L % (38-47) Departure - Departure Disposition: [facility] Inpatient Acute Clinical Impression: Hypokalemia, Hyponatremia Pulmonary embolism Qualifiers: Pulmonary embolism type: other Chronicity: acute Acute cor pulmonale presence: with acute cor pulmonale Qualified Code(s): I26.09 - Other pulmonary embolism with acute cor pulmonale Condition: Serious
[2018-05-18 07:59] LABS: PLATELET COUNT 199 10^3/uL (150-400)
[2018-05-18] MEDS ORDERED: IOPAMIDOL (ISOVUE 370) 100 ML BTL IV ONE (08:00)
[2018-05-18] MEDS ORDERED: POTASSIUM CL 20 MEQ TAB PO ONE (08:22)
--- NOTE | 2018-05-18 08:23 | CPEKG ---
Heart Rate: 92 RR Interval: 652 P-R Interval: 200 QRSD Interval: 110 QT Interval: 416 QTC Interval: 515 P [place]: 63 QRS [place]: -13 T Wave [place]: 214 EKG Severity - ABNORMAL ECG - EKG Impression: SINUS RHYTHM EKG Impression: INCOMPLETE RBBB AND LAFB Electronically Signed By: Paige Kauffman 18-May-2018 15:18:35
[2018-05-18] MEDS ORDERED: HEPARIN 10,000 UNIT/10 ML MDV (1,000 UNIT/ML) IVP ONE (09:18)
[2018-05-18] MEDS ORDERED: HEPARIN/DEXTROSE 500 ML IV ONE (09:18)
[2018-05-18 09:27] LABS: INR 1.26 (0.83-1.16)
[2018-05-18] MEDS ORDERED: POTASSIUM Cl (KCl) 100 ML IV ONE (09:36)
[2018-05-18] MEDS ORDERED: ACETAMINOPHEN 325 MG TAB PO PRN (10:31)
[2018-05-18] MEDS ORDERED: ONDANSETRON DISINTEGRATING 4 MG TAB PO PRN (10:31)
[2018-05-18] MEDS ORDERED: ONDANSETRON 4 MG/2 ML VIAL IVP PRN (10:31)
[2018-05-18] MEDS ORDERED: PROTOCOL POTASSIUM 1 DOSE MISC PRN (10:37)
[2018-05-18] MEDS ORDERED: PROTOCOL MAGNESIUM 1 DOSE IV PRN (10:37)
--- NOTE | 2018-05-18 10:55 | ASMTCMCOM ---
CM Note CM Note Notes: Pt presented to the ED for hypoxia, confusion and weakness. Pt admitted for PEs, hypokalemia, and LLE swelling and DVT. Pt lives at home with her friend and caregiver, Misty Chavira ([phone]) who is also pt's MDPOA. Spoke w/pt and Misty at bedside briefly. Pt has a home oxygen concentrator and two portable tanks; Misty thinks the home O2 company provider is [employer] ([phone]); pt's initial home O2 order was for 2L at night but pt has started wearing the O2 during the day as well. Pt has also been more confused recently and reportedly has had multiple falls at home; pt uses a walker when ambulating. Pt's PCP is Dr Kate Lee at [facility] ([phone]) and she has an appt scheduled for 05/26/18. Pt was reportedly admitted to a hospital in Nov for PNA. Pt's last admissions at [facility] were 01/28/18 and 01/05/18 and it appears that the pt left AMA both times. Misty states that she and patient are interested in supplemental home care options, either skilled or non-skilled. Misty also expressed that in the past the "coordination of care after we leave the hospital has been difficult." Exact DC needs TBD. CM to follow. Date Signed: 05/18/2018 10:55 AM Electronically Signed By:Diandra Wright RN
--- NOTE | 2018-05-18 11:00 | ASMTLACE ---
LOLITA Acuity / Level of Answers: Yes Care: Did the patient have an inpatient admission? Comorbidities - select Answers: History of falls all that apply Opioid dependence / Chronic pain Other Notes: Pulmonary embolism, DVT, divertic esther tis, # of Emergency department Answers: 3-4 visits in the last 6 months Score: 14 Date Signed: 05/18/2018 11:00 AM Electronically Signed By:Diandra Wright RN
[2018-05-18 11:49] LABS: PLATELET COUNT 178 10^3/uL (150-400)
[2018-05-18] MEDS ORDERED: NS 250 ML IV ONE (12:57)
--- NOTE | 2018-05-18 13:02 | PDGENHP ---
History and Physical - Chief Complaint "My oxygen was reading low" - History of Present Illness 72yo F with history of chronic pain 2/2 post-herpetic neuralgia, diverticulosis , admission late 2017 for pneumonia intermittently on 2L NC since that time who presents with worsening shortness of breath. Daughter noted home pulse oximetry 48% yesterday and symptomatic with shortness of breath/chest tightness today so decided to come in. Patient reports having several presyncopal episodes last couple days but no LOC or headstrike. She also reports swelling in L>R legs. Per daughter (with whom she lives), she has been mostly bed bound for the last week and not eating or drinking much at all. Patient reports occasional non- bloody emesis and loose stools but this is rather chronic. Denies fevers, cough , travel. In ED, CTA chest revealed acute PE and was started on heparin gtt. Patient denies personal history of VTE however has several family members with blood clots. She denies estrogen use, cigarette smoking. Has had normal mammograms and colonoscopies in the past but is due for the latter. Denies any blood in stool however she has lost 20-25 pounds over last 6 weeks. No night sweats. Admitted for further management of PE and severe hyponatremia. History Information - Allergies/Home Medication List Allergies/Adverse Reactions: hydrocodone bitartrate [From Vicodin] Allergy (Severe, Verified 05/18/18 06:59) Vomiting prochlorperazine [From Compazine] Allergy (Intermediate, Verified 05/18/18 06:59 ) ciprofloxacin [From Cipro] Allergy (Verified 05/18/18 06:59) Home Medications: SUMAtriptan [Imitrex Nasal [place]] 20 mg NS DAILY PRN 07/18/15 [Last Taken ] oxyCODONE CR [Oxycontin] 20 mg PO BID 04/25/16 [Last Taken 05/11/18] oxyCODONE IR [Oxycodone Ir (RX)] 10 mg PO TID PRN 01/06/18 [Last Taken 05/18/18] Gabapentin [Neurontin 300 MG (*)] 300 mg PO Q8H 05/18/18 [Last Taken 05/18/18] I have personally reviewed and updated: family history, medical history, social history, surgical history - Past Medical History Additional medical history: Chronic pain related to post-herpetic neuralgia. Diverticulosis. Migraines - Surgical History Reports: no pertinent surgical hx - Family History Additional family history: DVT/PE in aunt and maternal grandmother, mother with Parkinson's, father with diverticulosis - Social History Smoking Status: Never smoked Alcohol Use: None Drug Use: None Additional social history: lives at home with daughter. 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 Denies: chills, diaphoresis, fever EENMT: Reports: no symptoms Cardiac: Reports: chest pain, edema, lightheadedness. Denies: palpitations, syncope Respiratory: Reports: shortness of breath. Denies: cough, orthopnea, wheezing Gastrointestinal: Reports: vomitting, diarrhea, nausea. Denies: black stools, blood streaked stools, abdominal pain Genitourinary: Reports: no symptoms Muscolosketal: Reports: no symptoms Skin: Denies: lesions, rash Neurological: Reports: anxiety, weakness. Denies: paresthesia Hematologic/Lymphatic: Reports: no symptoms Physical Exam Physical Exam: Temp Pulse Resp BP Pulse Ox 36.6 C 88 18 139/73 H 98 05/18/18 06:59 05/18/18 10:00 05/18/18 10:00 05/18/18 10:00 05/18/18 10:00 O2 (L/minute) 5 Constitutional: no apparent distress, appears nourished, not in pain Eyes: PERRL, anicteric sclera, EOMI Ears, Nose, Mouth, Throat: hearing normal, ears appear normal, no oral mucosal ulcers, dry mucous membranes Cardiovascular: regular rate and rhythym, no murmur, rub, or gallop, edema (L>R mild pitting edema of lower extremities) Respiratory: other (no distress, decreased air movement on right, no wheezing or rales) Gastrointestinal: normoactive bowel sounds, soft, non-tender abdomen, no palpable masses Genitourinary: no bladder fullness, no bladder tenderness Skin: warm, normal color, no rashes or abrasions, no fluctuance, no induration, No mottled Musculoskeletal: full muscle strength, no muscle tenderness, normal joint ROM, no joint effusions Neurologic: sensation intact bilaterally, weakness (4+/5 strength throughout), CN II-XII Intact, other (alert and oriented x2 (missed year)), No asterixes, No facial droop Psychiatric: other (slow to respond with flat affect) Lab Data & Imaging Review 05/18/18 11:35 05/18/18 14:55 WBC 8.08 10^3/uL (3.80-9.50) 05/18/18 11:35 RBC 3.93 10^6/uL (4.18-5.33) L 05/18/18 11:35 Hgb 10.8 g/dL (12.6-16.3) L 05/18/18 11:35 POC Hgb 12.2 gm/dL (12.6-16.3) L 05/18/18 07:50 Hct 32.3 % (38.0-47.0) L 05/18/18 11:35 POC Hct 36 % (38-47) L 05/18/18 07:50 MCV 82.2 fL (81.5-99.8) 05/18/18 11:35 MCH 27.5 pg (27.9-34.1) L 05/18/18 11:35 MCHC 33.4 g/dL (32.4-36.7) 05/18/18 11:35 RDW 17.1 % (11.5-15.2) H 05/18/18 11:35 Plt Count 178 10^3/uL (150-400) 05/18/18 11:35 MPV 8.9 fL (8.7-11.7) 05/18/18 11:35 Neut % (Auto) Not Reported 05/18/18 11:35 Lymph % (Auto) Not Reported 05/18/18 11:35 [place] % (Auto) Not Reported 05/18/18 11:35 Eos % (Auto) Not Reported 05/18/18 11:35 Baso % (Auto) Not Reported 05/18/18 11:35 Nucleat RBC Rel Count Not Reported 05/18/18 11:35 Absolute Neuts (auto) Not Reported 05/18/18 11:35 Absolute Lymphs (auto) Not Reported 05/18/18 11:35 Absolute Monos (auto) Not Reported 05/18/18 11:35 Absolute Eos (auto) Not Reported 05/18/18 11:35 Absolute Basos (auto) Not Reported 05/18/18 11:35 Absolute Nucleated RBC Not Reported 05/18/18 11:35 Immature Gran % Not Reported 05/18/18 11:35 Seg Neutrophils % 75.8 % 05/18/18 11:35 Band Neutrophils % 9.1 % 05/18/18 11:35 Lymphocytes % 11.1 % 05/18/18 11:35 Monocytes % 3.0 % 05/18/18 11:35 Eosinophils % 1.0 % 05/18/18 11:35 Basophils % 0 % 05/18/18 11:35 Metamyelocytes % 0 % 05/18/18 11:35 Myelocytes % 0 % 05/18/18 11:35 Promyelocytes % 0 % 05/18/18 11:35 Blast Cells % 0 % 05/18/18 11:35 Immature Gran # Not Reported 05/18/18 11:35 Absolute Seg Neuts 6.12 10^/uL (1.70-6.50) 05/18/18 11:35 Absolute Band Neuts 0.74 10^3/uL (0.00-0.70) H 05/18/18 11:35 Absolute Lymphocytes 0.90 10^3/uL (1.00-3.00) L 05/18/18 11:35 Absolute Monocytes 0.24 10^3/uL (0.30-0.80) L 05/18/18 11:35 Absolute Eosinophils 0.08 10^3/uL (0.03-0.40) 05/18/18 11:35 Absolute Basophils 0.00 10^3/uL (0.02-0.10) L 05/18/18 11:35 Absolute Metamyelocyte 0.00 10^3/mL (0.00-0.00) 05/18/18 11:35 Absolute Myelocytes 0.00 10^3/mL (0.00-0.00) 05/18/18 11:35 Absolute Promyelocytes 0.00 10^3/uL (0.00-0.00) 05/18/18 11:35 Absolute Plasma Cells 0.00 10^3/uL (0.00-0.00) 05/18/18 11:35 Nucleated RBCs 1.0 /100 WBC (0-0) H 05/18/18 11:35 Absolute Blast Cells 0.00 10^3/uL (0.00-0.00) 05/18/18 11:35 Plasma Cells % 0 % 05/18/18 11:35 Platelet Estimate ADEQUATE (ADEQ) 05/18/18 11:35 Polychromasia 1+ H 05/18/18 11:35 Microcytic Cells 1+ H 05/18/18 07:50 Tear Drop Cells 1+ H 05/18/18 07:50 Elliptocytes 1+ H 05/18/18 11:35 PT 16.0 SEC (12.0-15.0) H 05/18/18 07:50 INR 1.26 (0.83-1.16) H 05/18/18 07:50 APTT 25.0 SEC (23.0-38.0) 05/18/18 07:50 POC Sodium 125 mEq/L (135-145) L 05/18/18 07:50 Sodium 124 mEq/L (135-145) L 05/18/18 08:50 POC Potassium < 2.0 mEq/L (3.3-5.0) L* 05/18/18 07:50 Potassium 2.4 mEq/L (3.3-5.0) L* 05/18/18 08:50 POC Chloride 70 mEq/L (97-110) L 05/18/18 07:50 Chloride 71 mEq/L (97-110) L 05/18/18 08:50 Carbon Dioxide 41 mEq/l (22-31) H* 05/18/18 08:50 Anion Gap 12 mEq/L (8-16) 05/18/18 08:50 POC BUN 15 mg/dL (7-23) 05/18/18 07:50 BUN 19 mg/dL (7-23) 05/18/18 08:50 Creatinine 0.7 mg/dL (0.6-1.0) 05/18/18 08:50 POC Creatinine 0.9 mg/dL (0.6-1.0) 05/18/18 07:50 Estimated GFR > 60 05/18/18 08:50 Glucose 117 mg/dL (70-100) H 07/29/18 08:50 POC Glucose 126 mg/dL (70-100) H 05/18/18 07:50 Calcium 7.0 mg/dL (8.5-10.4) L 05/18/18 08:50 Magnesium 1.3 mg/dL (1.6-2.3) L 05/18/18 08:50 POC Troponin I 0.36 ng/mL (0.00-0.08) H 05/18/18 07:49 NT-Pro-B Natriuret Pep 7220 pg/mL (0-125) H 05/18/18 07:50 Urine Osmolality 113 mosmo/kg (300-900) L 05/18/18 11:25 Ur Random Sodium 7 mEq/L (30-90) L 05/18/18 11:25 Ur Random Chloride 6 mEq/L 05/18/18 11:25 Visualized and Interpreted imaging results: Yes Visualized and Interpreted EKG results: Yes EKG additional interpertation: Sinus rhythm. Evidence of right heart strain with S1Q3T3, RBBB and LAFB. No acute ischemia. Normal Qtc Assessment & Plan Assessment: 72yo F with history of chronic pain 2/2 post-herpetic neuralgia, diverticulosis , admission in November 2017 for pneumonia discharged on 2L NC presents with worsening shortness of breath found to have acute PE and severe hyponatremia. Plan: #Acute submassive PE with LLE DVT: Right heart strain on ECG and elevated troponin and BNP. No indication for thrombolytics as she is hemodynamically stable. Started on heparin gtt which we'll continue. Ordered TTE. She has had period of relative immobility leading up to VTE and her significant weight loss is suspicious for underlying malignancy. #Acute hypoxemic respiratory failure: Requiring 10L via NRB. Due to V/Q mismatch from PE, managing as above. Discussed intubation with patient and MDPOA , both in agreement to proceed with mechanical ventilation if needed. She also likely has chronic hypercapnea of unclear cause, possibly CA. #Hypovolemic hyponatremia: Likely slow decline. Urine studies indicate inadequate solute which fits her clinical picture of very minimal PO intake; less likely SIADH given her low Uosm. Will slowly correct with 250ml NS with goal Na 128-130 by afternoon of 05/19. #Severe hypokalemia: Again most likely related to poor PO intake. Will monitor on telemetry and replete K and Mg aggressively. #Acute metabolic encephalopathy: Related to hypoNa and hypoxia. Monitor and avoid deliriogenic medications. #Metabolic alkalosis: Serum bicarb >40. Query compensation for respiratory acidosis vs GI losses. Considered hyperaldosteronism with hypoK but she is also hypoNa which doesn't fit. Obtaining ABG. She is not on diuretics. #Weight loss: 20-25 lbs, unintentional. Query underlying malignancy. Once stabilized, consider abdominal CT. #Anemia: Borderline microcytic. Will send iron studies, B12, folate. No e/o active bleeding. #T5 and T8 compression fractures: Noted on CT imaging. New. Patient reports several falls recently. Likely indicative of osteoporosis. She denies pain currently and does not have any neurologic deficits. Will monitor. #Pulmonary nodules: Noted on chest CT, stable since 2016 and benign appearing. #H/o diverticulosis: Chronic, not active. #Chronic pain: 2/2 post-herpetic neuralgia. Will cautiously continue home oxycodone. VTE ppx: on therapeutic anticoagulation Diet: regular Code: MALIK per discussion with patient [facility] Misty [facility]av[facility], Disposition: admit to step down unit for management of submassive PE with IV heparin and close monitoring of sodium with q4h blood draws
[2018-05-18] MEDS ORDERED: MAGNESIUM SULF 2 GM/WATER 50 ML IV ONE ×2 (13:48→16:24)
--- NOTE | 2018-05-18 15:46 | PDMN ---
Medical Necessity Medical necessity: Pt meets inpt criteria per MD order and MCG M-290, Pulmonary Embolism, A-4 days, est LOS>2MN for med nec monitoring and management of PE, DVT , and hypokalemia. Pt presented w/hypoxia, weakness, dry cough, LLE swelling, potassium 2, 2.4, CO2 38, 41, EKG SR w/ R BBB, diffuse T-wave changes, CT chest Angio shows acute thrombopulmonary embolic disease, R upper lobe atelectasis, extremity venous studies show acute DVT to LLE. Pt on Heparin gtt, IVF, IV potassium replacement, IV Mg Sulfate requiring SDU level monitoring and intervention.
[2018-05-18] MEDS ORDERED: POTASSIUM CL 20 MEQ/15 ML UDCUP PO ONE (16:23)
[2018-05-18] MEDS ORDERED: POTASSIUM Cl (KCl) 10 MEQ in NS 100 ML IV SCH (16:30)
--- NOTE | 2018-05-18 16:38 | ECHO ---
[email or web address] [address] Main: [phone] Fax: Transthoracic Echocardiogram Name: EMILIA YANG MR#: [id number] Study Date: 05/18/2018 Study Time: 01:11 PM Date of : 1945 Age: 72 year(s) Height: 162.6 cm (64 in.) Weight: 58.97 kg (130 lb.) BSA: 1.63 m2 Gender: Female Examination: Echo Indication: Acute PE Image Quality: Contrast: Requested by: Thom Dhillon BP: 128 mmHg/75 mmHg Heart Rate: Rhythm: Indication: Acute PE Procedure Staff Gold Buyer: Nickolas Dougherty RDCS Reading Physician: Roddy Winn MD Requesting Provider: Conclusions: Normal size left ventricle. Mild concentric LV hypertrophy. Normal global systolic LV function. EF is 74 %. Moderately dilated right ventricle. Moderately to severely reduced right ventricular function. Flattened interventricular septum consistent with right ventricular pressure and/or volume overload free wall. The left atrium is normal in size. The right atrium is mildly dilated. The pulmonary artery pressure is severely increased. Measurements: Chambers Valvular Assessment AV/MV Valvular Assessment TV/PV Normal Normal Normal Name Value Range Name Value Range Name Value Range Ao Kristi (MM): 2.9 cm (2.2 cm-3.7 AV Vmax: 1.67 m/s (1 m/s-1.7 TR Vmax: 3.95 mm/s ( - ) cm) m/s) TR PGmax: 62 mmHg ( - ) IVSd (2D): 1.0 cm (0.6 cm-1.1 AV maxP mmHg ( - ) syst. PAP: 72 mmHg ( - ) cm) LVOT Vmax: 1.33 m/s (0.7 m/s-1.1 PV Vmax: 1.13 m/s (0.6 m/s-0.9 LVDd (2D): 4.4 cm (3.9 cm-5.3 m/s) m/s) cm) MV E Vmax: 0.54 m/s ( - ) PV PGmax: 5 mmHg ( - ) LVDs (2D): 2.5 cm (2.1 cm-4 MV A Vmax: 0.81 m/s ( - ) cm) MV E/A: 0.67 ( - ) LVPWd (2D): 1.0 cm ( - ) LVEF (2D): 74 (>=54 %) RVDd(2D): 4.7 cm (1.9 cm-3.8 cmmm) Continued Measurements: Patient: EMILIA YANG Study Date: 05/18/2018 Page 1 of 2 01:11 PM Chambers Valvular Assessment AV/MV Valvular Assessment TV/PV Name Value Name Value Name Value LADs Lon.8 cm MV E' Septal: 0.04 m/s CVP (est.): 10 mmHg LA Area: 19.3 cm2 MV E/E' Septal: 13.20 MV E/E' Lateral: 6.70 Findings: Left Ventricle: Normal size left ventricle. Mild concentric LV hypertrophy. Normal global systolic LV function. EF is 74 %. No regional wall motion abnormality. Grade 1 diastolic dysfunction (abnormal relaxation). Right Ventricle: Moderately dilated right ventricle. Moderately to severely reduced right ventricular function. Flattened interventricular septum consistent with right ventricular pressure and/or volume overload free wall. Left Atrium: The left atrium is normal in size. Right Atrium: The right atrium is mildly dilated. Mitral Valve: The mitral valve is normal in appearance and function. Aortic Valve: The aortic valve is normal in appearance and function. The aortic valve is tri-leaflet. Tricuspid Valve: The tricuspid valve appears normal. Moderate tricuspid regurgitation is present. The pulmonary artery pressure is severely increased. Pulmonic Valve: The pulmonic valve is normal in appearance and function. Aorta: The aorta is normal. Pericardium: No pericardial effusion. (No Signature Object) Patient: EMILIA YANG Study Date: 05/18/2018 Page 2 of 2 01:11 PM [id number]
[2018-05-18] MEDS: POTASSIUM Cl (KCl) 100 ML IV SCH ×2 (16:47→17:41)
[2018-05-18] MEDS ORDERED: POTASSIUM Cl (KCl) 40 MEQ in NS 1,000 ML IV SCH (17:30)
--- NOTE | 2018-05-18 18:55 | GCON ---
[f rep st] CONSULTATION PULMONARY CRITICAL CARE. DATE OF CONSULTATION: 05/18/2018 REASON FOR CONSULTATION: DVT/PE. HISTORY: The patient is a very pleasant 72-year-old, who presented to the emergency room with hypoxe erickson, chest tightness, and shortness of breath. Over the last month, she has noted some pain and swel ling of her left lower extremity. Pulmonary symptoms began several days ago. These have been associ ated with several episodes of lightheadedness. She has a history of diverticular disease and has had multiple evaluations here. She is followed by Dr. Eller at the [facility] for this. S he has some chronic abdominal discomfort, loose stools, and occasional vomiting. Evaluation in the ED was positive for DVT in the left lower extremity and moderate volume pulmonary e mbolic disease. She was started on a heparin drip. She has not traveled lately and has no other ris k factors for DVT/PE other than her episodes of diverticulitis requiring more bedrest. She states sh e had pneumonia in November. She has been on oxygen at night. She denies any pleuritic-type chest p ain. She has had no hemoptysis. PAST MEDICAL HISTORY: Remarkable for diverticular disease, migraines, and post-herpetic neuralgia. Outpatient medications include: OxyContin and oxycodone as needed, gabapentin, and Imitrex. She is also on oxygen at night. DRUG ALLERGIES: Vicodin, Compazine, ciprofloxacin. 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 She is single and has no immediate family. She has a good friend who is her medical power of patent prosecution attorney. Alcohol and tobacco are negative. FAMILY HISTORY: Positive for thromboembolic disease in her maternal grandmother and aunt. REVIEW OF SYSTEMS: A 10-point review of systems was negative except as outlined above. PHYSICAL EXAMINATION: GENERAL: Reveals a very pleasant woman who is resting comfortably in bed. JENNIFER SIGNS: Oxygen is in place at 4-5 L by nasal cannula with saturations of 100%. Blood pressure is 112/56, respiratory rate 16, heart rate 85 with sinus rhythm on the monitor. She is afebrile. HEEN T: Unremarkable for lymphadenopathy or thyromegaly. There is no jugular venous distention obvious. Mucous membranes are moist. Oxygen is in place. CHEST: Clear anteriorly. Breath sounds are dimin ished at the bases with some nonspecific rales with end inspiration. HEART: Regular in rate and rhy thm. There are no gallops or significant murmurs. P2 appears slightly prominent. ABDOMEN: Soft, n ontender. Bowel sounds are present. There is no organomegaly. EXTREMITIES: Remarkable for some mi ld tenderness in the left popliteal area and in the calf. The left calf is approximately 1 inch larg er than the right. The calf itself is soft and there is no erythema. NEUROLOGIC: Examination is in tact. DATA REVIEWED: CT angiogram is as noted above, and showed moderate volume pulmonary embolic disease. Minimal right upper lobe atelectasis was noted as well as some lung nodules, stable since 2016. Lower extremity venous Doppler ultrasound of the left leg did show clot in the popliteal, peroneal, a nd posterior tibial veins. Cardiac echo was remarkable for evidence of right heart strain, possibly all acute, possibly acute on chronic. The right ventricle as well as the right atrium were dilated moderately with decreased rig ht ventricular function and flattening of the septum. Estimated pulmonary artery pressures were 62 m mHg. Moderate TR was present. LABORATORY: White blood cell count is 8000, hematocrit 32, platelets 178,000. PT was 16 with a PTT of 25 on admission. Arterial blood gas shows a pH 7.53, pCO2 of 50 with a pO2 of 67. Serum bicarbon ate was 44. Sodium is 125 with a potassium of 2.0. BUN is 15 with creatinine 0.7. Glucose is 125, calcium 6.8, magnesium 1.3. BNP is 7220. Troponin was nonspecifically elevated at 0.36. Urine sodi um was 7. ASSESSMENT: 1. Deep venous thrombosis/pulmonary embolism. The etiology for this may be her relatively sedentary lifestyle and time in bed associated with flares of her chronic diverticulitis. In addition, the yuriy moya does have a history positive for deep venous thrombosis/pulmonary embolism, and thus a heredita ry cause may be present. The pulmonary emboli are of moderate volume. The source is the left lower extremity. IV heparin is appropriate anticoagulation. Her pulmonary emboli are associated with pulm onary hypertension. This may be all relatively acute or chronic on acute. It sounds like her lower extremity symptoms have been present for at least a month. Pulmonary symptoms are much more recent, over the last several days to a week. 2. Hypoxemia. The patient is moderately hypoxemic. She has been on some oxygen at home, 2 L since her pneumonia in November. There is no history of underlying lung disease or significant tobacco abu se. Appropriate oxygen supplementation will be maintained. Current pulmonary embolic disease is con tributing to the hypoxemia. 3. Hyponatremia, hypokalemia. She has had issues with hypokalemia in the past. Sodiums of been rel atively normal. 4. History of migraines and other medical problems as outlined above in the history of present illne ss. 5. Mild anemia. Hematocrit is 32. Baseline hematocrit on previous laboratories was approximately 4 0. 6. Metabolic alkalosis. Compensatory hypoventilation appears to be present but only partial, as pH is 7.53. This may be in part related to her gastrointestinal issues? PLAN AND RECOMMENDATIONS: The patient will be kept in the intensive care unit. Heparin drip will be continued. Oral anticoagulation will be decided on within the next day or so. Coumadin could be in itiated tomorrow. Newer agents such as Eliquis will be considered. Oxygen will be given to maintain saturations at 88% or above. Inspiratory spirometry will be ordered. Factor 5 Leiden and anticardi olipin antibodies will be requested. She will be kept on the potassium replacement protocol. Normal saline with potassium will also be ordered. Electrolytes will be followed. Iron studies will be ob tained. Further plans and recommendations will be made based on her progress over the next 12 to 24 hours. /[id number]/MODL
[2018-05-18] MEDS: oxyCODONE IR 5 MG TAB PO PRN (19:38)
[2018-05-18] MEDS ORDERED: POTASSIUM CL 10 MEQ TAB PO ONE (21:58)
[2018-05-19] MEDS: HEPARIN 10,000 UNIT/10 ML MDV (1,000 UNIT/ML) IVP PRN ×2 (00:38→13:30)
[2018-05-19] MEDS ORDERED: POTASSIUM CL 20 MEQ TAB PO ONE ×2 (02:17→13:53)
[2018-05-19] MEDS: POTASSIUM Cl (KCl) 100 ML IV SCH ×2 (02:33→03:36)
[2018-05-19 05:24] LABS: PLATELET COUNT 181 10^3/uL (150-400)
[2018-05-19] MEDS: HEPARIN/DEXTROSE 500 ML IV SCH (05:42)
[2018-05-19] MEDS ORDERED: POTASSIUM CL 10 MEQ TAB PO ONE ×2 (07:45→19:28)
[2018-05-19] MEDS: oxyCODONE IR 5 MG TAB PO PRN ×3 (07:57→23:56)
[2018-05-19] MEDS ORDERED: D5W 1,000 ML IV SCH (08:15)
[2018-05-19] MEDS ORDERED: POTASSIUM CL 20 MEQ/15 ML UDCUP PO ONE (13:38)
[2018-05-19] MEDS ORDERED: MAGNESIUM OXIDE 400 MG TAB PO ONE (13:39)
[2018-05-19] MEDS ORDERED: SENNOSIDES/DOCUSATE SODIUM TAB PO PRN (13:40)
[2018-05-19] MEDS ORDERED: BENZONATATE 100 MG CAP PO PRN (13:56)
--- NOTE | 2018-05-19 13:58 | HOSPPROG ---
Hospitalist Progress Note Assessment/Plan: 72yo F with history of chronic pain 2/2 post-herpetic neuralgia, diverticular disease, admission late 2017 for pneumonia discharged on 2L NC presents with worsening shortness of breath found to have acute PE and severe hyponatremia. Plan: #Acute submassive PE with LLE DVT: Moderate burden on CT. Unclear precipitant: malignancy vs sedentary vs strong family history. Continue heparin gtt, start warfarin this evening with goal INR 2-3. Discussed long-term OAC (warfarin vs DOAC) with patient and daughter and both in agreement to start warfarin. #Acute hypoxemic respiratory failure: Requiring 5-7L via NC. Due to above. Ok with intubation if needed. Also likely has underlying CA. #Pulmonary hypertension with cor pulmonale: Moderate-severe RV dysfunction on TTE. Will ensure adequate preload with IVF. #Hypovolemic hyponatremia: Due to poor PO. Na 122->133 in first 12 hours. Start D5W for goal 128-130 by this afternoon. #Severe hypokalemia: Most likely related to poor PO intake. Will monitor on telemetry and replete K and Mg aggressively. #Acute metabolic encephalopathy: Resolved. Monitor and avoid deliriogenic medications. #Metabolic alkalosis with partial respiratory compensation: Serum bicarb >40. Unclear cause, possibly GI losses. Not on diuretic. #Weight loss: 20-25 lbs, unintentional. Query underlying malignancy. Once stabilized, consider abdominal CT. #Anemia: Borderline microcytic. Will send iron studies, B12, folate. No e/o active bleeding. #T5 and T8 compression fractures: Noted on CT imaging. New. Patient reports several falls recently. Likely indicative of osteoporosis. She denies pain currently and does not have any neurologic deficits. Will monitor. #Pulmonary nodules: Noted on chest CT, stable since 2016 and benign appearing. #H/o diverticulosis: Chronic, not active. #Chronic pain: 2/2 post-herpetic neuralgia. Will cautiously continue home oxycodone. VTE ppx: on therapeutic anticoagulation Diet: regular Code: FCFT per discussion with patient Contact: [facility] daughter Misty Chavira, Disposition: continue admission to step down unit for management of submassive PE with IV heparin and close monitoring of sodium with regular labs. Subjective: Had some episodes of hypoxia overnight but promptly recovered once awake. Feeling better this morning, thinking more clearly. No chest pain or bleeding. Has mild dry cough Objective: Vital Signs Temp Pulse Resp BP Pulse Ox 36.9 C 91 18 127/79 H 91 L 05/19/18 11:27 05/19/18 11:27 05/19/18 11:27 05/19/18 11:27 05/19/18 11:27 Laboratory Results 05/19/18 05:05 05/19/18 10:53 05/18/18 05/19/18 05/20/18 05:59 05:59 05:59 Intake Total 3605 360 Output Total 2275 750 Balance 1330 -390 PT 16.0 SEC (12.0-15.0) H 05/18/18 07:50 INR 1.26 (0.83-1.16) H 05/18/18 07:50 - Physical Exam Constitutional: no apparent distress, appears nourished, not in pain Eyes: PERRL, anicteric sclera, EOMI Ears, Nose, Mouth, Throat: moist mucous membranes, hearing normal, ears appear normal, no oral mucosal ulcers Cardiovascular: regular rate and rhythym, other (prominent S2), No edema Respiratory: no respiratory distress, reduced air movement Gastrointestinal: normoactive bowel sounds, soft, non-tender abdomen, no palpable masses Skin: no rashes or abrasions, no fluctuance, no induration Musculoskeletal: full muscle strength, no muscle tenderness, normal joint ROM Neurologic: AAOx3, sensation intact bilaterally Psychiatric: interacting appropriately, not anxious, not encephalopathic, thought process linear ICD10 Worksheet Patient Problems: Problems Problem Status Onset Hypokalemia Acute Hyponatremia Acute Pulmonary embolism Acute Acute diverticulitis Acute Bladder wall thickening Acute Diarrhea Acute Diverticulitis Acute Gastroenteritis and colitis, viral Acute Post herpetic neuralgia Chronic
[2018-05-19] MEDS ORDERED: BISACODYL 10 MG SUPP PR PRN (14:14)
[2018-05-19] MEDS ORDERED: BISACODYL 10 MG SUPP PR ONE (14:22)
--- NOTE | 2018-05-19 14:36 | PDINTPN ---
Blintze Roller Progress Note Assessment/Plan: 72 F admitted with SOB and CP with chronic O2 requirement since 08/2017 when diagnosed with possible PNA as outpatient (CXR showed lingular infiltrate which cleared by 09/2017). This is her 5th hospital admission or ED visit in 2018 with no PE on CTAs from 10/29/17 and 01/06/18 (though she has longstanding non- calcified, numerous pulmonary nodules unchanged since 2016). She has left [facility] AMA twice this year for unclear reasons, and was anxious to go home after an ER visit 02/26/18 when she presented with N/V. Of note, one such AMA admission was when she complained of LE edema, but left before a workup could be completed. She was admitted at that time with hypoxia and somnolence as well, in the setting of chronic pain syndrome and chronic opiate use. She denies snoring, excess daytime somnolence, frequent wakening, or FH CA. Negative annual cancer screening, but recent weight loss. No HRT, travel, trauma, surgery , previous VTE. No known FH of clearly venous VTE. On this admission, she presented with near syncope, CP and hypoxia and a CTA showed a substantial acute PE with left LE DVT. * VTE- Presumed unprovoked event, though frequent hospitalizations adds to risk. Would anticoagulate for 3-6 months then dc. Second VTER would result in life long. * Hypoxia- acute on chronic. Acutely likely related to PE, but chronic issue probably related to chronic narcotics and hypoventilation. Once VTE stabilized ( 2-4 weeks) would try room air ABG to calculate Aa gradient, and consider PFTs to r/o airways disease. * Dispo: would consider discussion with daughter present and perhaps CM about implications of leaving AMA Subjective: feels better with less sob. Objective: Vital Signs Temp Pulse Resp BP Pulse Ox 36.9 C 91 18 127/79 H 91 L 05/19/18 11:27 05/19/18 11:27 05/19/18 11:27 05/19/18 11:27 05/19/18 11:27 Laboratory Results 05/19/18 05:05 05/19/18 10:53 05/18/18 05/19/18 05/20/18 05:59 05:59 05:59 Intake Total 3605 360 Output Total 2275 750 Balance 1330 -390 PT 16.0 SEC (12.0-15.0) H 05/18/18 07:50 INR 1.26 (0.83-1.16) H 05/18/18 07:50 Physical Exam - Physical Exam General Appearance: no apparent distress, other (somnolent, dozing off during interview) EENT: PERRL/EOMI Neck: supple Respiratory: lungs clear, normal breath sounds, decreased breath sounds, No respiratory distress, No accessory muscle use Cardiac/Chest: regular rate, rhythm, No edema Abdomen: non-tender, soft, No distended Skin: normal color, warm/dry, No cyanosis Lymphatic: no adenopathy Extremities: No pedal edema Neuro/Psych: normal mood/affect, oriented x 3, No abnormal lace weaver II-XII ICD10 Worksheet Patient Problems: Problems Problem Status Onset Hypokalemia Acute Hyponatremia Acute Pulmonary embolism Acute Acute diverticulitis Acute Bladder wall thickening Acute Diarrhea Acute Diverticulitis Acute Gastroenteritis and colitis, viral Acute Post herpetic neuralgia Chronic
[2018-05-19] MEDS ORDERED: MAGNESIUM CITRATE 300 ML BOTTLE PO ONE (15:40)
[2018-05-19] MEDS ORDERED: WARFARIN SODIUM 5 MG TAB PO SCH (16:00)
[2018-05-20] MEDS: HEPARIN/DEXTROSE 500 ML IV SCH (00:32)
[2018-05-20 05:59] LABS: INR 1.69 (0.83-1.16)
[2018-05-20] MEDS: oxyCODONE IR 5 MG TAB PO PRN ×3 (08:01→23:42)
[2018-05-20] MEDS ORDERED: NS 500 ML IV ONE (11:33)
[2018-05-20] MEDS: ENOXAPARIN 60 MG/0.6 ML SYR SC SCH ×2 (11:45→20:22)
--- NOTE | 2018-05-20 13:47 | PDINTPN ---
Telecommunications Professional Progress Note Assessment/Plan: 72 F admitted with SOB and CP with chronic O2 requirement since 08/2017 when diagnosed with possible PNA as outpatient (CXR showed lingular infiltrate which cleared by 09/2017). This is her 5th hospital admission or ED visit in 2018 with no PE on CTAs from 10/29/17 and 01/06/18 (though she has longstanding non- calcified, numerous pulmonary nodules unchanged since 2016). She has left [facility] AMA twice this year for unclear reasons, and was anxious to go home after an ER visit 02/26/18 when she presented with N/V. Of note, one such AMA admission was when she complained of LE edema, but left before a workup could be completed. She was admitted at that time with hypoxia and somnolence as well, in the setting of chronic pain syndrome and chronic opiate use. She denies snoring, excess daytime somnolence, frequent wakening, or FH CA. Negative annual cancer screening, but recent weight loss. No HRT, travel, trauma, surgery , previous VTE. No known FH of clearly venous VTE. On this admission, she presented with near syncope, CP and hypoxia and a CTA showed a substantial acute PE with left LE DVT. * VTE- Presumed unprovoked event, though frequent hospitalizations adds to risk. Would anticoagulate for 3-6 months then dc. Second VTE would result in life long. Agree with plans to switch to lovenox given stability while awaiting therapeutic INR on warfarin * Hypoxia- acute on chronic. Acutely likely related to PE, but chronic issue probably related to chronic narcotics and hypoventilation. Once VTE stabilized ( 2-4 weeks) would try room air ABG to calculate Aa gradient, and consider PFTs to r/o airways disease. * Dispo: would consider discussion with daughter present and perhaps CM about implications of leaving AMA * ok for floor/tele 05/20/18 13:46 Subjective: feels well Objective: Vital Signs Temp Pulse Resp BP Pulse Ox 36.7 C 98 16 152/80 H 95 05/20/18 04:00 05/20/18 07:57 05/20/18 07:57 05/20/18 07:57 05/20/18 07:57 Laboratory Results 05/20/18 05:41 05/20/18 05:41 05/19/18 05/20/1818 05:59 05:59 05:59 Intake Total 3605 2107 Output Total 2275 1345 Balance 1330 762 PT 20.0 SEC (12.0-15.0) H 05/20/18 05:41 INR 1.69 (0.83-1.16) H 05/20/18 05:41 Physical Exam - Physical Exam General Appearance: alert, no apparent distress EENT: PERRL/EOMI Neck: supple Respiratory: lungs clear, normal breath sounds, No respiratory distress, No accessory muscle use Cardiac/Chest: regular rate, rhythm, No edema Abdomen: non-tender, soft, No distended Skin: normal color, warm/dry, No cyanosis Lymphatic: no adenopathy Extremities: No pedal edema Neuro/Psych: alert, normal mood/affect, oriented x 3 ICD10 Worksheet Patient Problems: Problems Problem Status Onset Hypokalemia Acute Hyponatremia Acute Pulmonary embolism Acute Acute diverticulitis Acute Bladder wall thickening Acute Diarrhea Acute Diverticulitis Acute Gastroenteritis and colitis, viral Acute Post herpetic neuralgia Chronic
--- NOTE | 2018-05-20 15:10 | HOSPPROG ---
Hospitalist Progress Note Assessment/Plan: 72yo F with history of chronic pain 2/2 post-herpetic neuralgia, diverticular disease, admission late 2017 for pneumonia discharged on 2L NC presents with worsening shortness of breath found to have acute PE and severe hyponatremia. Plan: #Submassive PE with LLE DVT: Hemodynamically stable. Switch heparin gtt -> weight based LMWH. Continue warfarin with goal INR 2-3. Unclear precipitant: malignancy vs sedentary vs strong family history. #Acute on chronic hypoxemic respiratory failure: Much improved, now on 2L NC. Precipitated by above. Chronic issues likely related to CA although no formal diagnosis. #Pulmonary hypertension with cor pulmonale: Moderate-severe RV dysfunction on TTE. Slightly tachycardic this AM, will trial 500ml NS. #Hypovolemic hyponatremia: Resolved with cautious IVF and PO intake. Out of window for central pontine demyelinosis. #Hypokalemia: Resolved. Most likely related to poor PO intake. Will monitor on telemetry and replete K and Mg aggressively. #Metabolic encephalopathy: Resolved. Monitor and avoid deliriogenic medications. #Metabolic alkalosis with partial respiratory compensation: Serum bicarb >40. Unclear cause, possibly GI losses. Not on diuretic. #Weight loss: 20-25 lbs, unintentional. Query underlying malignancy. Once stabilized, consider abdominal CT. #Anemia: Borderline microcytic. Not floridly iron deficient and B12/folate wnl. No e/o active bleeding. Needs outpatient colonoscopy. #T5 and T8 compression fractures: Noted on CT imaging. New. Patient reports several falls recently. Likely indicative of osteoporosis. She denies pain currently and does not have any neurologic deficits. Will monitor. #Pulmonary nodules: Noted on chest CT, stable since 2016 and benign appearing. #H/o diverticulosis: Chronic, not active. #Chronic pain: 2/2 post-herpetic neuralgia. Will cautiously continue home oxycodone. VTE ppx: on therapeutic anticoagulation Diet: regular Code: FCERROL per discussion with patient Contact: [facility] daughter Misty Chavira, Disposition: Transfer to med/surg unit. Continue admission for management of submassive PE with close hemodynamic monitoring (continuous telemetry, pulse ox ) and management of cor pulmonale with IVF. Subjective: Requested to leave AMA several times yesterday and again this morning. She is feeling much better with minimal shortness of breath, even with exertion. Denies pleuritic pain, cough, fever. Objective: Vital Signs Temp Pulse Resp BP Pulse Ox 36.7 C 98 16 152/80 H 95 05/20/18 04:00 05/20/18 07:57 05/20/18 07:57 05/20/18 07:57 05/20/18 07:57 Laboratory Results 05/20/18 05:41 05/20/18 05:41 05/19/18 05/20/18 05/21/18 05:59 05:59 05:59 Intake Total 3605 2107 662 Output Total 2275 1345 Balance 1330 762 662 PT 20.0 SEC (12.0-15.0) H 05/20/18 05:41 INR 1.69 (0.83-1.16) H 05/20/18 05:41 - Physical Exam Constitutional: no apparent distress, appears nourished, not in pain Eyes: PERRL, anicteric sclera, EOMI Ears, Nose, Mouth, Throat: moist mucous membranes, hearing normal, ears appear normal, no oral mucosal ulcers Cardiovascular: tachycardia, edema (L>R pitting edema to mid-lee), No JVD Respiratory: no rales or rhonchi, reduced air movement (Left base) Gastrointestinal: normoactive bowel sounds, soft, non-tender abdomen, no palpable masses Skin: no rashes or abrasions, no fluctuance, no induration Musculoskeletal: full muscle strength, no muscle tenderness, normal joint ROM Neurologic: AAOx3, sensation intact bilaterally Psychiatric: interacting appropriately, not anxious, not encephalopathic, thought process linear, other (odd affect at times) ICD10 Worksheet Patient Problems: Problems Problem Status Onset Hypokalemia Acute Hyponatremia Acute Pulmonary embolism Acute Acute diverticulitis Acute Bladder wall thickening Acute Diarrhea Acute Diverticulitis Acute Gastroenteritis and colitis, viral Acute Post herpetic neuralgia Chronic
[2018-05-20] MEDS ORDERED: WARFARIN SODIUM 3 MG TAB PO SCH (16:00)
--- NOTE | 2018-05-20 17:21 | ASMTCMCOM ---
CM Note CM Note Notes: James sent someone [employer] to talk to the pt. They ar support services for their clients [phone]. They don't offer skilled care as in Therapies or nursing. to contact 2W CM re: skilled HC in our area Saturday. Patient will be on coumadin and in need of blood draws, PT to eval home for safety. Patient very leery of wanting people coming to the home. Her friend, Misty feeling overwhelmed by patient's increasing needs and doesn't want the responsibility of caretaking. Date Signed: 05/20/2018 05:21 PM Electronically Signed By:Nelia Groves LCSW
[2018-05-21 06:23] LABS: INR 2.58 (0.83-1.16); PROTIME(PATIENT) 27.6 SEC (12.0-15.0)
[2018-05-21] MEDS: oxyCODONE IR 5 MG TAB PO PRN (07:57)
[2018-05-21] MEDS: ENOXAPARIN 60 MG/0.6 ML SYR SC SCH (08:00)
[2018-05-21 08:02] VITALS: BP 153/89
[2018-05-21] MEDS ORDERED: MAGNESIUM SULF 2 GM/WATER 50 ML IV ONE (08:08)
[2018-05-21] MEDS ORDERED: POTASSIUM CL 10 MEQ TAB PO ONE (08:09)
[2018-05-21] MEDS ORDERED: POTASSIUM CL 20 MEQ TAB PO ONE (08:35)
[2018-05-21] MEDS ORDERED: WARFARIN SODIUM 1 MG TAB PO ONE (13:00)
--- NOTE | 2018-05-21 13:19 | PDIAF ---
- Diagnosis Code Status: Full Code - Medication Management Discharge Medications: Medications to Continue on Transfer SUMAtriptan [Imitrex Nasal [place]far[place]] 20 mg NS DAILY PRN 07/18/15 [Last Taken ] oxyCODONE CR [Oxycontin] 20 mg PO BID 04/25/16 [Last Taken 05/11/18] oxyCODONE IR [Oxycodone Ir (*)] 10 mg PO TID PRN 01/06/18 [Last Taken 05/18/18] Ondansetron Odt [Zofran Odt 4 mg (*)] 4 mg PO Q4 PRN #20 tab 02/26/18 [Last Taken Unknown] Gabapentin [Neurontin 300 MG (*)] 300 mg PO Q8H 05/18/18 [Last Taken 05/18/18] Enoxaparin [Lovenox 60 MG (*)] 60 mg SC BID 2 Days syr 05/21/18 [Last Taken Unknown] Warfarin Sodium [Warfarin Pharmacy To Dose] 1 mg PO DAILY #30 ea 05/21/18 [Last Taken Unknown] Discharge Medications: Refer to the Discharge Home Medication list for PRN reason. - Orders Services needed: Registered Nurse, Physical Therapy Isolation Type: None Oxygen: Continue wearing 2L via NC as you were prior to this hospitalization. Additional Instructions: 1. You should continue giving yourself the Lovenox shots twice daily through Wednesday 05/23. 2. Continue taking warfarin 1mg every evening. You will need to have your blood drawn to follow you warfarin level (called the INR) on Saturday. It is very important that you get this done as Dr Moraes's team may need to adjust this dose. 3. If you develop any bleeding or notice blood in your stools, please seek medical attention. 4. Follow up with Dr Moraes on Saturday. 5. Continue wearing 2L of oxygen at all times until your see your PCP. Dr Moraes"s phone number is [phone]. - Labs/Radiology PT/INR Date: 05/23/18 - Follow Up Care Current Providers and Referrals: Kate Lee MD [Primary Care Provider] - As per Instructions
--- NOTE | 2018-05-21 13:22 | ASMTCMCOM ---
CM Note CM Note Notes: Spoke with [employer] who told me patient's insurance will cover [facility]. Sent a referral to [facility] and talked with them via telephone as patient is d/c'ing today. Awaiting their return call. CM will follow. Date Signed: 05/21/2018 01:22 PM Electronically Signed By:Ana Arreola LCSW
--- NOTE | 2018-05-21 14:43 | ASMTDCNOTE ---
Case Management Discharge Discharge Order Complete? Answers: Yes Patient to Obtain Answers: Independently Medications Transportation Arranged Answers: Family/Friends Faxed Final Orders Answers: Yes Notes: [facility] Home Health Care Agency/Facility Transfer Answers: Yes Notes: [facility] Home Health Care Report Printed & Faxed to Receiving Agency Family Notified Answers: Yes Notes: [facility] and friend Discharge Comments Notes: Patient d/c'ed to home today with [facility], PT and nursing services. No further needs. Date Signed: 05/21/2018 02:42 PM Electronically Signed By:Ana Arreola LCSW
--- NOTE | 2018-05-21 14:49 | ASMTCMCOM ---
CM Note CM Note Notes: [facility] called to say they will have the staff to follow up with patient for home health services upon discharge. Cancelled services with the other home health agencies. Initially we were trying to locate agencies that would take patient's insurance other than [facility] because they were not sure they had adequate staffing. [facility] has had the patient in the past. Patient did d/c today to home. No further needs. Date Signed: 05/21/2018 02:48 PM Electronically Signed By:Ana Arreola LCSW
--- NOTE | 2018-05-21 16:53 | PDDCSUM ---
Discharge Summary Discharge Summary: Date of Admission: 05/18/2018 Date of Discharge: 05/21/2018 Consultants: snack steward/pulmonology Procedures/Studies: TTE Brief Hospital Course by Diagnosis: 1. Submassive PE with LLE DVT: Presumed unprovoked. Hemodynamically stable, did not receive thrombolytic therapy. Discharged to complete 2 more days of LMWH in addition to warfarin with INR check in 2 days (goal 2-3). Plan for at least 6 months of anticoagulation. 2. Acute on chronic hypoxemic respiratory failure: Initially requiring 10L, discharged on 2L via NC which was her baseline prior to admission. I suspect her chronic issue is related to hypoventilation but airways disease has not been ruled out. Recommend outpatient sleep study, PFTs, room air ABG. 3. Pulmonary hypertension with cor pulmonale: Moderate-severe RV dysfunction on TTE. Due to #1. 4. Hypovolemic hyponatremia: 122 on admit. Resolved with cautious IVF and PO intake. 5. Hypokalemia: Severe, resolved. Related to poor PO intake. 6. Metabolic alkalosis with partial respiratory compensation: Serum bicarb >40 initially. Unclear cause, possibly GI losses. Not on diuretic. 7. Weight loss: 20-25 lbs, unintentional. Query underlying malignancy. Recommend outpatient age-appropriate cancer screening. 8. Anemia: Borderline microcytic. Not floridly iron deficient and B12/folate wnl. No e/o active bleeding. Needs outpatient colonoscopy. 9. T5 and T8 compression fractures: Noted on CT imaging. New. Patient reports several falls recently. Likely indicative of osteoporosis. She denies pain currently and does not have any neurologic deficits. 10. Pulmonary nodules: Noted on chest CT, stable since 2016 and benign appearing. 11. H/o diverticulosis: Chronic, not active. 12. Chronic pain: 2/2 post-herpetic neuralgia. Discharged on home oxycontin and oxycodone. Follow Up Plan/Items for Follow Up: 1. INR check on Wednesday 05/23. Adjust warfarin accordingly 2. PCP appointment (Dr Moraes) on Saturday 05/26 3. Titrate supplemental O2 as needed 4. Plan for 3-6 months of anticoagulation. Discuss with patient risk of recurrent VTE at that time. If second VTE, would recommend lifelong anticoagulation. 5. Recommend PFTs (to rule out airways disease) and room air PFTs (to assess for hypoventilation) once 2-4 weeks out from PE 6. Age appropriate cancer screening. She is due for a colonoscopy 7. Discuss compression fractures/diagnosis of osteoporosis 8. Continue to encourage cessation from chronic opioids Tests Pending at Discharge: none Medications at Discharge: Please refer to EMR for complete list. During this admission, we added LMWH 60mg BID x2 days and warfarin 1mg daily. Physical Exam: Vitals reviewed and patient examined on day of discharge. She is alert with no distress and good air movement.
== END 2018-05-21 14:25 | disposition home health service (06) | DRG 175 ==
LOC: F2N 10:38
PROVIDERS: ADMIT Internal Medicine; ATTEND Internal Medicine
DX: I26.99 Other pulmonary embolism without acute cor pulmonale (principal); J96.21 Acute and chronic respiratory failure with hypoxia; I82.432 Acute embolism and thrombosis of left popliteal vein; I82.442 Acute embolism and thrombosis of left tibial vein; B02.29 Other postherpetic nervous system involvement; E87.3 Alkalosis; I27.29 Other secondary pulmonary hypertension; E87.6 Hypokalemia; E83.51 Hypocalcemia; E86.1 Hypovolemia; D64.9 Anemia, unspecified; G89.29 Other chronic pain; R91.8 Other nonspecific abnormal finding of lung field; R63.4 Abnormal weight loss; Z87.01 Personal history of pneumonia (recurrent); Z99.81 Dependence on supplemental oxygen; Z91.81 History of falling
CPT/HCPCS: 82435-PO; 82565-PO; 82607-90; 82947-PO; 84132-PO; 84295-PO; 84484-PO; 84520-PO; 85014-PO; 85520-90; 96365; 97116-GP; 97161-GP; J1644; J1650; J3475; J3480; Q9967

== ENCOUNTER → 2018-06-09 | Outpatient (CLI) | payer OTHER | LOC: FIMAGING 10:52 | PROVIDERS: ATTEND Internal Medicine | DX: R10.9 Unspecified abdominal pain (principal); R07.9 Chest pain, unspecified; W19.XXXA Unspecified fall, initial encounter; Z79.01 Long term (current) use of anticoagulants; Z86.711 Personal history of pulmonary embolism; K76.0 Fatty (change of) liver, not elsewhere classified ==

== ENCOUNTER 2018-06-11 18:42 | Emergency (ER) | payer OTHER ==
[2018-06-11] MEDS ORDERED: NS 1,000 ML IV ONE ×2 (19:07→19:47)
[2018-06-11] MEDS ORDERED: ONDANSETRON 4 MG/2 ML VIAL IVP ONE (19:07)
[2018-06-11] MEDS ORDERED: HYDROmorphONE/DILAUDID 2 MG/ML INJ IVP ONE (19:07)
--- NOTE | 2018-06-11 19:10 | EDPHY ---
H & P Stated Complaint: hx diverticulitis l abd pain/noted stool from vaginal area Time Seen by Provider: 06/11/18 18:54 HPI/ROS: CHIEF COMPLAINT: Abdominal pain, stool from vagina HISTORY OF PRESENT ILLNESS: The patient is a 73-year-old female with a history of chronic abdominal pain and diverticulitis as well as recent hospitalization for submassive PE on Coumadin. She comes to the emergency department complaining of left-sided abdominal pain for about a week as well as vaginal discharge at the she thinks is stool for the last couple of days. She has not had a fever. She is tachycardic but states that she is always tachycardic. No vomiting. No diarrhea. No blood in her stool. No history of abdominal surgeries. No urinary discomfort. REVIEW OF SYSTEMS: Constitutional: denies: chills, fever, recent illness, recent injury EENTM: denies: blurred vision, double vision, nose congestion Respiratory: denies: cough, shortness of breath Cardiac: denies: chest pain, irregular heart rate, lightheadedness, palpitations Gastrointestinal/Abdominal: See HPI Genitourinary: See HPI Musculoskeletal: denies: joint pain, muscle pain Skin: denies: lesions, rash, jaundice, bruising Neurological: denies: headache, numbness, paresthesia, tingling, dizziness, weakness Hematologic/Lymphatic: denies: blood clots, easy bleeding, easy bruising Immunologic/allergic: denies: HIV/AIDS, transplant EXAM: GENERAL: Well-appearing, well-nourished and in no acute distress. HEAD: Atraumatic, normocephalic. EYES: Pupils equal round and reactive to light, extraocular movements intact, sclera anicteric, conjunctiva are normal. ENT: TMs normal, nares patent, oropharynx clear without exudates. Moist mucous membranes. NECK: Normal range of motion, supple without lymphadenopathy or JVD. LUNGS: Breath sounds clear to auscultation bilaterally and equal. No wheezes rales or rhonchi. HEART: Regular rate and rhythm without murmurs, rubs or gallops. ABDOMEN: Left-sided upper and lower quadrant pain, minimal tenderness, normoactive bowel sounds. No guarding, no rebound. No masses appreciated. : Vaginal exam performed, no blood or discharge or stool or sign of fistula. No masses. BACK: No CVA tenderness, no spinal tenderness, step-offs or deformities EXTREMITIES: Normal range of motion, no pitting or edema. No clubbing or cyanosis. NEUROLOGICAL: Cranial nerves II through XII grossly intact. Normal speech, normal gait. 5/5 strength, normal movement in all extremities, normal sensation PSYCH: Normal mood, normal affect. SKIN: Warm, dry, normal turgor, no visible rashes or lesions. Source: Patient, Other ([id number]) Exam Limitations: No limitations - Personal History Current Tetanus Diphtheria and Acellular Pertussis (TDAP): Yes Tetanus Vaccine Date: <10yrs - Medical/Surgical History Hx Asthma: No Hx Chronic Respiratory Disease: No Hx Diabetes: No Hx Cardiac Disease: No Hx Renal Disease: No Hx Cirrhosis: No Hx Alcoholism: No Hx HIV/AIDS: No Hx Splenectomy or Spleen Trauma: No Other PMH: CHRONIC PAIN POST SHINGLES / ULCERS. Migraines, HTN, PNA-USES O2, diverticulitis. pe - Social History Smoking Status: Never smoked Alcohol Use: Sober Drug Use: None Constitutional: Initial Vital Signs Temperature (C) 36.7 C 06/11/18 18:47 Heart Rate 137 H 06/11/18 18:47 Respiratory Rate 18 06/11/18 18:47 Blood Pressure 165/116 H 06/11/18 18:47 O2 Sat (%) 94 06/11/18 18:47 O2 Delivery Mode Nasal Cannula O2 (L/minute) 2 Allergies/Adverse Reactions: hydrocodone bitartrate [From Vicodin] Allergy (Severe, Verified 06/11/18 18:46) Vomiting ciprofloxacin Allergy (Unknown, Verified 06/11/18 20:51) Vomiting prochlorperazine Allergy (Unknown, Verified 06/11/18 20:51) parkinsonian-like reaction hydrocodone bitartrate Allergy (Unknown, Uncoded 05/21/18 15:08) Vomiting Home Medications: Medication Instructions Recorded SUMAtriptan [Imitrex Nasal [place]] 20 mg NS DAILY PRN 07/18/15 oxyCODONE CR [Oxycontin] 20 mg PO BID@06,18 04/25/16 oxyCODONE IR [Oxycodone Ir (*)] 10 mg PO TID PRN 01/06/18 Amoxicillin/Clavulanate Pot 875 mg PO BID #14 tab 06/11/18 [Augmentin 875Mg] Herbals/Supplements -Info Only 1 ea PO AD 06/11/18 Potassium Cl [Klor-Con] 10 meq PO BID@,18 06/11/18 Warfarin Sodium [Coumadin 3MG (*)] 3 mg PO DAILY16 06/11/18 Medical Decision Making - Diagnostics Imaging Results: Imaging Impressions Abdomen CT 06/11/18 19:08 Impression: 1. Recurrent sigmoid diverticulitis complicated by contained perforation/ abscess in the vesicouterine pouch measuring 4.4 x 3.7 cm. This area is filled with stool material, communicates to the sigmoid colon, and abuts the thickened superior bladder wall and uterus, and likely represents a long standing process. A punctate focus of air in the bladder would suggest that there is fistulization. 2. New groundglass densities in the right lower lobe, possibly infectious or inflammatory. 3. 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 Embolization is usually reserved when this lesion measures over 4 cm. Findings and recommendations discussed with ALLAN FRANKLIN at 2105 hour, 2017. ED Course/Re-evaluation: 9:00 p.m. I discussed the case with Dr. Lobo Rudd who will consult and recommends admission to the hospital service. 9:10 p.m. I had a very long discussion with the patient about her CT scan and lab work. I am concerned that she is deathly ill. 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 She is absolutely refusing admission. She is even refusing stay here in the ER for couple more hours to get IV antibiotics. 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 I asked her several questions to assess her mental status and she passed them all well. Her [id number] is in the room with her and states that she is able to make her own medical decisions. She does accept oral antibiotics here as well as a prescription. I recommended strongly that she return tomorrow for admission. She understands that she is tachycardic and likely septic and has a perforated infection in her abdomen. I have placed a call to her primary Dr. Moraes to voice my concern. 9:20 p.m. I discussed the case with Dr. Rosalba Linares who will have Dr. Lee call the patient 1st thing in the morning and encouraged her to come back to the hospital. The patient states that no matter what Dr. Lee said she would not stay tonight. Differential Diagnosis: Partial list of the Differential diagnosis considered include but were not limited to; diverticulitis, perforated diverticulitis, fistula, sepsis and although unlikely based on the history and physical exam, I also considered cancer, obstruction, ischemia. - Data Points Laboratory Results: Laboratory Results 06/11/18 19:30 06/11/18 19:30 06/11/18 06/11/18 06/11/18 20:15 19:35 19:30 WBC RBC Hgb Hct MCV MCH MCHC RDW Plt Count MPV Neut % (Auto) Lymph % (Auto) White % (Auto) Eos % (Auto) Baso % (Auto) Nucleat RBC Rel Count Absolute Neuts (auto) Absolute Lymphs (auto) Absolute Monos (auto) Absolute Eos (auto) Absolute Basos (auto) Absolute Nucleated RBC Immature Gran % Immature Gran # PT 42.5 SEC H SEC (12.0-15.0) INR 4.54 H (0.83-1.16) APTT 77.4 SEC H SEC (23.0-38.0) VBG Lactic Acid 1.2 mmol/L mmol/L (0.7-2.1) Sodium Potassium Chloride Carbon Dioxide Anion Gap BUN Creatinine Estimated GFR Glucose Calcium Total Bilirubin Conjugated Bilirubin Unconjugated Bilirubin AST ALT Alkaline Phosphatase Total Protein Albumin Lipase Urine Color YELLOW Urine Appearance HAZY Urine pH 7.0 (5.0-7.5) Ur Specific [place] 1.008 (1.002-1.030) Urine Protein 1+ H (NEGATIVE) Urine Ketones TRACE H (NEGATIVE) Urine Blood 3+ H (NEGATIVE) Urine Nitrate NEGATIVE (NEGATIVE) Urine Bilirubin NEGATIVE (NEGATIVE) Urine Urobilinogen NEGATIVE EU EU (0.2-1.0) Ur Leukocyte Esterase 2+ H (NEGATIVE) Urine RBC 50-182 /hpf H /hpf (0-3) Urine WBC 50-182 /hpf H /hpf (0-3) Ur Epithelial Cells TRACE /lpf /lpf (NONE-1+) Urine Bacteria TRACE /hpf H /hpf (NONE SEEN) Urine Mucus TRACE /lpf /lpf (NONE-1+) Urine Glucose NEGATIVE (NEGATIVE) 06/11/18 06/11/18 19:30 19:30 WBC 11.91 10^3/uL H 10^3/uL (3.80-9.50) RBC 3.55 10^6/uL L 10^6/uL (4.18-5.33) Hgb 10.3 g/dL L g/dL (12.6-16.3) Hct 30.9 % L % (38.0-47.0) MCV 87.0 fL fL (81.5-99.8) MCH 29.0 pg pg (27.9-34.1) MCHC 33.3 g/dL g/dL (32.4-36.7) RDW 15.0 % % (11.5-15.2) Plt Count 386 10^3/uL 10^3/uL (150-400) MPV 7.6 fL L fL (8.7-11.7) Neut % (Auto) 60.0 % % (39.3-74.2) Lymph % (Auto) 34.6 % % (15.0-45.0) White % (Auto) 3.8 % L % (4.5-13.0) Eos % (Auto) 0.1 % L % (0.6-7.6) Baso % (Auto) 0.7 % % (0.3-1.7) Nucleat RBC Rel Count 0.0 % % (0.0-0.2) Absolute Neuts (auto) 7.16 10^3/uL H 10^3/uL (1.70-6.50) Absolute Lymphs (auto) 4.12 10^3/uL H 10^3/uL (1.00-3.00) Absolute Monos (auto) 0.45 10^3/uL 10^3/uL (0.30-0.80) Absolute Eos (auto) 0.01 10^3/uL L 10^3/uL (0.03-0.40) Absolute Basos (auto) 0.08 10^3/uL 10^3/uL (0.02-0.10) Absolute Nucleated RBC 0.00 10^3/uL 10^3/uL (0-0.01) Immature Gran % 0.8 % % (0.0-1.1) Immature Gran # 0.09 10^3/uL 10^3/uL (0.00-0.10) PT INR APTT VBG Lactic Acid Sodium 129 mEq/L L mEq/L (135-145) Potassium 3.5 mEq/L mEq/L (3.3-5.0) Chloride 93 mEq/L L mEq/L (97-110) Carbon Dioxide 26 mEq/l mEq/l (22-31) Anion Gap 10 mEq/L mEq/L (8-16) BUN 9 mg/dL mg/dL (7-23) Creatinine 0.6 mg/dL mg/dL (0.6-1.0) Estimated GFR > 60 Glucose 124 mg/dL H mg/dL (70-100) Calcium 8.3 mg/dL L mg/dL (8.5-10.4) Total Bilirubin 0.9 mg/dL mg/dL (0.1-1.4) Conjugated Bilirubin 0.4 mg/dL mg/dL (0.0-0.5) Unconjugated Bilirubin 0.5 mg/dL mg/dL (0.0-1.1) AST 37 IU/L IU/L (14-46) ALT 25 IU/L IU/L (9-52) Alkaline Phosphatase 166 IU/L H IU/L (38-126) Total Protein 7.1 g/dL g/dL (6.3-8.2) Albumin 3.4 g/dL L g/dL (3.5-5.0) Lipase 23 IU/L IU/L (23-300) Urine Color Urine Appearance Urine pH Ur Specific [place] Urine Protein Urine Ketones Urine Blood Urine Nitrate Urine Bilirubin Urine Urobilinogen Ur Leukocyte Esterase Urine RBC Urine WBC Ur Epithelial Cells Urine Bacteria Urine Mucus Urine Glucose Medications Given: Discontinued Medications Amoxicillin/Clavulanate Potassium (Augmentin 875mg) 875 mg PO EDNOW ONE PRN Reason: Protocol Stop: 06/11/18 21:04 Last Admin: 06/11/18 21:30 Dose: 875 mg Hydromorphone HCl (Dilaudid) 0.5 mg IVP EDNOW ONE Stop: 06/11/18 19:08 Last Admin: 06/11/18 19:32 Dose: 0.5 mg Sodium Chloride (Ns) 1,000 mls @ 0 mls/hr IV EDNOW ONE; Wide Open PRN Reason: Protocol Stop: 06/11/18 19:08 Last Admin: 06/11/18 19:32 Dose: 1,000 mls Sodium Chloride (Ns) 1,000 mls @ 0 mls/hr IV EDNOW ONE; Wide Open PRN Reason: Protocol Stop: 06/11/18 19:48 Last Admin: 06/11/18 19:50 Dose: 1,000 mls Ondansetron HCl (Zofran) 4 mg IVP EDNOW ONE Stop: 06/11/18 19:08 Last Admin: 06/11/18 19:32 Dose: 4 mg Departure - Departure Disposition: Against Medical Advice Clinical Impression: Perforation of sigmoid colon due to diverticulitis, Fistula, bladder Condition: Fair Instructions: Diverticulitis (ED) Referrals: Kate Lee MD [Primary Care Provider] - As per Instructions Prescriptions: Amoxicillin/Clavulanate Pot [Augmentin 875Mg] 875 mg PO BID #14 tab
[2018-06-11] MEDS ORDERED: IOPAMIDOL (ISOVUE-300) 100 ML BTL ONE (19:17)
[2018-06-11 19:48] LABS: PLATELET COUNT 386 10^3/uL (150-400)
[2018-06-11 19:53] LABS: INR 4.54 (0.83-1.16); PROTIME(PATIENT) 42.5 SEC (12.0-15.0)
[2018-06-11] MEDS ORDERED: AMOXICILLIN/CLAVULANATE POT 875/125 MG TAB PO ONE (21:03)
[2018-06-11 21:38] VITALS: BP 158/99
== END 2018-06-11 21:35 | disposition left against medical advice (07) ==
DX: K57.80 Diverticulitis of intestine, part unspecified, with perforation and abscess without bleeding (principal)
CPT/HCPCS: 96374; J1170; J2405; Q9967

== ENCOUNTER 2018-06-23 05:52 | Emergency (ER) | payer OTHER ==
[2018-06-23] MEDS ORDERED: NS 1,000 ML IV ONE (05:58)
--- NOTE | 2018-06-23 06:03 | EDPHY ---
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 Patient states she was getting out of bed to use the bathroom and thinks she may have tripped over something. And then hit her lee head on the floor sustaining a left eyebrow laceration. She denies LO C. Denies chest pain shortness of breath, denies palpitations, denies feeling ill. She presents GCS 15, alert or x4. No acute distress. 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 Past Surgical History: Denies recent surgery Social History: Drugs alcohol tobacco denies Family History: Noncontributory ROS REVIEW OF SYSTEMS: 10 Systems were reviewed and negative with the exception of the elements mentioned in the history of present illness. Exam Constitutional elderly, frail triage nursing summary reviewed, vital signs reviewed, awake/alert. Eyes normal conjunctivae and sclera, EOMI, PERRLA. HENT head/neck: Left eyebrow laceration 3 cm in length, small hematoma present, otherwise atraumatic head and neck exam, no neck pain, moist mucus membranes, no epistaxis, neck supple/ no meningismus, no raccoon eyes. Respiratory clear to auscultation bilaterally, normal breath sounds, no respiratory distress, no wheezing. Cardiovascular rate normal, regular rhythm, no murmur, no edema, distal pulses normal. Gastrointestinal soft, non-tender, no rebound, no guarding, normal bowel sounds, no distension, no pulsatile mass. Genitourinary no CVA tenderness. Musculoskeletal no midline vertebral tenderness, full range of motion, no calf swelling, no tenderness of extremities, no meningismus, good pulses, neurovascularly intact. Skin pink, warm, & dry, no rash, skin atraumatic. Neurologic awake, alert and oriented x 3, AAOx3, moves all 4 extremities equally, motor intact, sensory intact, CN II-XII intact, normal cerebellar, normal vision, normal speech. Psychiatric normal mood/affect. Heme/Lymph/Immune no lymphadenopathy. Differential Diagnosis: Includes but is not limited to in a particular order closed head injury, intracranial bleed, skull fracture, intracranial bleed on Coumadin, eyebrow laceration, soft tissue injury Medical Decision Making: Plan for this patient IV establishment IV fluid bolus , EKG, troponin, chest x-ray, CT scan head without contrast for trauma, and will need to repair the patient's eyebrow laceration. Her tetanus shot is up-to -date she reports. Re-evaluation: The INR 2.16. No elevated white blood cell count. CT scan head without contrast negative for acute traumatic injury no evidence of skull fracture brain bleed called to me by Dr. Sagastume, EKG interpretation by me on record in [facility] system. Impression time of EKG 6:13 a.m., reason for EKG fall. Sinus tach 102. Intervals are appropriate. Abnormal T-wave V1 V2. Otherwise no ST elevation no ST depression no prolonged intervals. No signs of cardiac arrhythmia. When compared to patient' s old EKG is similar. Dated 02/26/2018. Similar T-wave inversions. In similar morphology. ED x-ray chest one view: Negative for acute traumatic injury. Laceration Repair Procedure: Verbal Consent was obtained, Under sterile conditions, The patient had lidocaine with epinephrine used approximately 5ccs to local anesthetize the left eyebrow laceration 3 cm in horizontal orientation Laceration. The wound was copiously irrigated with sterile fluid, the wound was explored for foreign bodies there were none visualized, the wound was explored with a sterile glove to the base. There are no deep structures involved, including no arterial injury. TWO 6.O PROLENE interrupted Sutures were placed in this patient's laceration. He had good close approximation of the wound edges. He Tolerated this well. Patient understands have sutures removed in 7 days. Patient's labs reviewed. She is anemic at baseline. Additionally her potassium is slightly low. Will give a dose of oral potassium. She left against medical advice on her previous hospitalization for a intra- abdominal abscess diverticulitis, bladder fistula. She declined surgery and declined ostomy. She went home against medical advice. I did offer her to be admitted back to the hospital she still is urinating feces. However she has declined hospitalization. She wants to go home. Here in the emergency room she states that she came here because she fell sustained a head laceration wanted to make sure she did have a brain bleed on Coumadin which we have ruled out for her. Additionally her INR is 2.16. CT scan shows no blood. No skull fracture. And her lacerations were repaired she declined any further hospital services or readmission for intra-abdominal abscess diverticulitis with fistula. Patient would like to go home. Daughter at bedside disagrees with the patient however patient has capacity make her own medical decisions. And this is her decision to once again refused further medical attention. Source: Patient - Personal History Tetanus Vaccine Date: <10yrs - Medical/Surgical History Hx Asthma: No Hx Chronic Respiratory Disease: No Hx Diabetes: No Hx Cardiac Disease: No Hx Renal Disease: No Hx Cirrhosis: No Hx Alcoholism: No Hx HIV/AIDS: No Hx Splenectomy or Spleen Trauma: No Other PMH: CHRONIC PAIN POST SHINGLES / ULCERS. Migraines, HTN, PNA-USES O2, diverticulitis. pe - Social History Smoking Status: Never smoked Constitutional: Initial Vital Signs Temperature (C) 36.8 C 06/23/18 05:58 Heart Rate 84 06/23/18 05:58 Respiratory Rate 16 06/23/18 05:58 Blood Pressure 149/80 H 06/23/18 05:58 O2 Sat (%) 95 06/23/18 05:58 O2 Delivery Mode Nasal Cannula O2 (L/minute) 2 Allergies/Adverse Reactions: hydrocodone bitartrate [From Vicodin] Allergy (Severe, Verified 06/23/18 05:58) Vomiting ciprofloxacin Allergy (Unknown, Verified 06/23/18 05:58) Vomiting prochlorperazine Allergy (Unknown, Verified 06/23/18 05:58) parkinsonian-like reaction hydrocodone bitartrate Allergy (Unknown, Uncoded 06/23/18 05:58) Vomiting Home Medications: Medication Instructions Recorded SUMAtriptan [Imitrex Nasal [place]] 20 mg NS DAILY PRN 07/18/15 oxyCODONE CR [Oxycontin] 20 mg PO BID@,18 04/25/16 oxyCODONE IR [Oxycodone Ir (*)] 10 mg PO TID PRN 01/06/18 Potassium Cl [Klor-Con] 10 meq PO BID@,18 06/11/18 Warfarin Sodium [Coumadin 3MG (*)] 3 mg PO DAILY@13 06/11/18 Acetaminophen [Tylenol 325mg (*)] 325 mg PO Q6HRS PRN 06/12/18 Ondansetron Odt [Zofran Odt 4 mg 4 mg PO Q4HRS PRN 06/12/18 (*)] Medical Decision Making - Data Points Laboratory Results: Laboratory Results 06/23/18 06:05 06/23/18 06:05 06/23/18 06/23/18 06/23/18 06:25 06:05 06:05 WBC RBC Hgb Hct MCV MCH MCHC RDW Plt Count MPV Neut % (Auto) Lymph % (Auto) [place] % (Auto) Eos % (Auto) Baso % (Auto) Nucleat RBC Rel Count Absolute Neuts (auto) Absolute Lymphs (auto) Absolute Monos (auto) Absolute Eos (auto) Absolute Basos (auto) Absolute Nucleated RBC Immature Gran % Immature Gran # PT 24.1 SEC H SEC (12.0-15.0) INR 2.16 H (0.83-1.16) APTT 41.1 SEC H SEC (23.0-38.0) Sodium 132 mEq/L L mEq/L (135-145) Potassium 3.0 mEq/L L mEq/L (3.3-5.0) Chloride 97 mEq/L mEq/L (97-110) Carbon Dioxide 26 mEq/l mEq/l (22-31) Anion Gap 9 mEq/L mEq/L (8-16) BUN 13 mg/dL mg/dL (7-23) Creatinine 0.7 mg/dL mg/dL (0.6-1.0) Estimated GFR > 60 Glucose 107 mg/dL H mg/dL (70-100) Calcium 8.5 mg/dL mg/dL (8.5-10.4) POC Troponin I 0.02 ng/mL ng/mL (0.00-0.08) 06/23/18 06:05 WBC 6.34 10^3/uL 10^3/uL (3.80-9.50) RBC 2.83 10^6/uL L 10^6/uL (4.18-5.33) Hgb 8.6 g/dL L g/dL (12.6-16.3) Hct 25.6 % L % (38.0-47.0) MCV 90.5 fL fL (81.5-99.8) MCH 30.4 pg pg (27.9-34.1) MCHC 33.6 g/dL g/dL (32.4-36.7) RDW 15.4 % H % (11.5-15.2) Plt Count 382 10^3/uL 10^3/uL (150-400) MPV 7.9 fL L fL (8.7-11.7) Neut % (Auto) 40.2 % % (39.3-74.2) Lymph % (Auto) 50.2 % H % (15.0-45.0) [place] % (Auto) 7.1 % % (4.5-13.0) Eos % (Auto) 0.9 % % (0.6-7.6) Baso % (Auto) 0.8 % % (0.3-1.7) Nucleat RBC Rel Count 0.0 % % (0.0-0.2) Absolute Neuts (auto) 2.55 10^3/uL 10^3/uL (1.70-6.50) Absolute Lymphs (auto) 3.18 10^3/uL H 10^3/uL (1.00-3.00) Absolute Monos (auto) 0.45 10^3/uL 10^3/uL (0.30-0.80) Absolute Eos (auto) 0.06 10^3/uL 10^3/uL (0.03-0.40) Absolute Basos (auto) 0.05 10^3/uL 10^3/uL (0.02-0.10) Absolute Nucleated RBC 0.00 10^3/uL 10^3/uL (0-0.01) Immature Gran % 0.8 % % (0.0-1.1) Immature Gran # 0.05 10^3/uL 10^3/uL (0.00-0.10) PT INR APTT Sodium Potassium Chloride Carbon Dioxide Anion Gap BUN Creatinine Estimated GFR Glucose Calcium POC Troponin I Medications Given: Discontinued Medications Sodium Chloride (Ns) 1,000 mls @ 0 mls/hr IV EDNOW ONE; Wide Open PRN Reason: Protocol Stop: 09/03/18 05:59 Last Admin: 06/23/18 06:32 Dose: 1,000 mls Point of Care Test Results: Chemistry 06/23/18 06:25 POC Troponin I 0.02 ng/mL ng/mL (0.00-0.08) Departure - Departure Disposition: Home, Routine, Self-Care Clinical Impression: Fall Qualifiers: Encounter type: initial encounter Qualified Code(s): W19.XXXA - Unspecified fall, initial encounter Laceration of head Qualifiers: Encounter type: initial encounter Location of open wound of head: eyelid Foreign body presence: without foreign body Laterality: left Qualified Code(s): S01.112A - Laceration without foreign body of left eyelid and periocular area, initial encounter Condition: Good Instructions: Care For Your Stitches (ED), Fall Prevention for Older Adults (ED ) Additional Instructions: 1. Sutures need to be removed in 7 days. 2. Watch for signs of infection 3. Return emergency room if you have worsening symptoms questions or concerns. Referrals: Patient,NotPresent [Unknown] - As per Instructions Trevor Gutierrez MD [Medical Doctor] - As per Instructions
[2018-06-23 06:18] LABS: PLATELET COUNT 382 10^3/uL (150-400)
[2018-06-23 06:27] LABS: INR 2.16 (0.83-1.16); PROTIME(PATIENT) 24.1 SEC (12.0-15.0)
[2018-06-23 06:33] VITALS: BP 151/88
[2018-06-23] MEDS ORDERED: POTASSIUM CL 20 MEQ PKT PO ONE (06:42)
[2018-06-23] MEDS ORDERED: POTASSIUM CL 20 MEQ TAB ONE (06:57)
[2018-06-23] MEDS ORDERED: POTASSIUM CL 10 MEQ TAB PO ONE (06:58)
--- NOTE | 2018-06-25 23:08 | CPEKG ---
Test Reason : OPEN Blood Pressure : / mmHG Vent. Rate : 102 BPM Atrial Rate : 103 BPM P-R Int : 141 ms QRS Dur : 093 ms QT Int : 374 ms P-R-T Axes : 028 -20 015 degrees QTc Int : 488 ms Sinus tachycardia Probable left atrial enlargement Borderline left axis deviation Borderline T abnormalities, anterior leads Borderline prolonged QT interval Confirmed by Jorge A Farley ([id number]) on 06/25/2018 11:08:10 PM Referred By: Confirmed By:Jorge A Farley
== END 2018-06-23 07:11 | disposition home or self-care (01) ==
LOC: EDUNIT#
PROC: 0HQ1XZZ Repair Face Skin, External Approach (ICD-10-PCS; principal; 2018-06-23)
DX: S01.112A Laceration without foreign body of left eyelid and periocular area, initial encounter (principal); Z86.711 Personal history of pulmonary embolism; Z79.01 Long term (current) use of anticoagulants; W06.XXXA Fall from bed, initial encounter; Y92.013 Bedroom of single-family (private) house as the place of occurrence of the external cause
CPT/HCPCS: 84484-PO

== ENCOUNTER 2018-06-30 07:16 | Inpatient (IN) | payer OTHER ==
--- NOTE | 2018-06-30 07:27 | EDPHY ---
H & P Time Seen by Provider: 06/30/18 07:26 HPI/ROS: CHIEF COMPLAINT: Abdominal pain and intermittent fevers HISTORY OF PRESENT ILLNESS: Patient was seen previously by me on June 12. She had history of diverticulitis with colovesicular fistula and at that time was admitted with a pelvic abscess. She was seen by Dr. Gutierrez and Dr. Francesco Warner but left the next day against medical advice. She also has a history of sub massive pulmonary embolism anticoagulated on warfarin. Her most recent emergency department visit was on June 23 for a head laceration which she apparently sustained when falling down. Patient and the daughter tell me that she has been signing out against medical advice because she is afraid of hospitals and surgery because her father had a bad experience. Today the patient presents with worsening left lower quadrant abdominal pain. Moderate to severe, associated with fever and chills subjectively over the last 48 hr. Not associated with vomiting or diarrhea but says no urine output today and less oral intake over the last couple of days. Pain does not radiate, worse with walking and palpation. REVIEW OF SYSTEMS: Eye: no change in vision ENT: no sore throat Cardiac: no chest pain or syncope Pulmonary: no cough or SOB Abdomen: HPI Musculoskeletal: no back pain Skin: Chronic left-sided chest pain where she had previous shingles, no current rash Neuro: no headache, but the daughter says she is little more unsteady on her feet over the last couple of days. Constitutional: Fever and chills : HPI A comprehensive 10 point review of systems is otherwise negative aside from elements mentioned in the history of present illness. PAST MEDICAL HISTORY: Pulmonary embolism, diverticulitis with colovesicular fistula. Hypertension, migraines, chronic pain after shingles. Social history: Nonsmoker General Appearance: Alert and conversant, cooperative. Eyes: No scleral icterus. ENT, Mouth: Dry mucous membranes Respiratory: Normal respiratory effort, breath sounds equal, lungs are clear to auscultation. Cardiovascular: Regular rate and rhythm. Gastrointestinal: Left lower quadrant abdominal tenderness. Neurological: Alert, face symmetric, normal motor and sensory in extremities. Fluent speech. Skin: Bruising on the left side of the eyebrow where she had previous laceration. Musculoskeletal: No spinal tenderness. Psychiatric: Not agitated. Emergency Department course/MDM: Noncontrast head CT to evaluate for delayed bleeding and head trauma 1 week ago on warfarin with development of being unsteady on her feet. I-STAT and will perform CT with or without IV contrast depending on creatinine. IV fluid hydration. 800: I-STAT sodium 131 and creatinine 0.6, IV normal saline [address] abdomen pelvis discussed and consented. 817: Negative head CT per Dr. Hernandez. 831: per Dr. Hernandez, pelvic abscess with fistula increasing in size, no other new changes. 850: Discussed with Dr. Gutierrez, admit hospitalist with surgery consultation. 900: Results and plan discussed with patient and daughter at this time. IV Dilaudid 0.5 mg, normal saline hydration, ertapenem 1 g IV, discussed with Agatha Galdamez for Dr. Jordan Eller who will admit. 920: seen by Matt in ED. 1000: INR noted to be elevated but the patient does not clinically have signs or symptoms of active bleeding. Smoking Status: Never smoked Constitutional: Initial Vital Signs Temperature (C) 37.2 C 06/30/18 07:20 Heart Rate 118 H 06/30/18 07:20 Respiratory Rate 18 06/30/18 07:20 Blood Pressure 146/90 H 06/30/18 07:20 O2 Sat (%) 92 06/30/18 07:20 O2 Delivery Mode Nasal Cannula O2 (L/minute) 2 Allergies/Adverse Reactions: hydrocodone bitartrate [From Vicodin] Allergy (Severe, Verified 06/30/18 07:24) Vomiting ciprofloxacin Allergy (Unknown, Verified 06/30/18 07:24) Vomiting prochlorperazine Allergy (Unknown, Verified 06/30/18 07:24) parkinsonian-like reaction hydrocodone bitartrate Allergy (Unknown, Uncoded 06/30/18 07:24) Vomiting Home Medications: Medication Instructions Recorded SUMAtriptan [Imitrex Nasal [place]] 20 mg NS DAILY PRN 07/18/15 oxyCODONE CR [Oxycontin] 20 mg PO BID@,04/25/16 oxyCODONE IR [Oxycodone Ir (*)] 10 mg PO TID PRN 01/06/18 Potassium Cl [Klor-Con] 10 - 20 meq PO BID@,18 06/11/18 Ondansetron Odt [Zofran Odt 4 mg 4 mg PO Q4HRS PRN 06/12/18 (*)] Warfarin Sodium [Coumadin 4MG (*)] 4 mg PO DAILY@13 06/30/18 Medical Decision Making - Diagnostics Imaging Results: Imaging Impressions Head CT 06/30/18 07:45 Impression: 1. No acute intracranial process. 2. Age-appropriate generalized cerebral volume loss of sequela of chronic microvascular ischemic disease. Findings and recommendations discussed with AWAIS HSIEH at 816 hour, 06/30/2018. Abdomen CT 06/30/18 07:58 Impression: 1. Redemonstration of sigmoid diverticulitis with increase in size of a contained perforation in the vesicouterine pouch, now measuring 6.2 x 4.6 cm. The area of perforation has also increased in size. Probable fistulization to the bladder and possibly to the uterus. 2. 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 Findings and recommendations discussed with AWAIS HSIEH at 835 hour, 06/30/2018. Imaging: Discussed imaging studies w/ curb builder Radiologist Differential Diagnosis: Abdominal pain differential considered including but not limited to diverticulitis, diverticular abscess, intestinal perforation, UTI or urinary retention. - Data Points Laboratory Results: Laboratory Results 06/30/18 07:50 06/30/18 08:45 06/30/18 06/30/18 06/30/18 09:00 08:45 07:58 WBC RBC Hgb POC Hgb 10.9 gm/dL L gm/dL (12.6-16.3) Hct POC Hct 32 % L % (38-47) MCV MCH MCHC RDW Plt Count MPV Neut % (Auto) Lymph % (Auto) [place] % (Auto) Eos % (Auto) Baso % (Auto) Nucleat RBC Rel Count Absolute Neuts (auto) Absolute Lymphs (auto) Absolute Monos (auto) Absolute Eos (auto) Absolute Basos (auto) Absolute Nucleated RBC Immature Gran % Immature Gran # VBG Lactic Acid 1.0 mmol/L mmol/L (0.7-2.1) Turbidity POC Sodium 131 mEq/L L mEq/L (135-145) Sodium 129 mEq/L L mEq/L (135-145) POC Potassium 3.4 mEq/L mEq/L (3.3-5.0) Potassium 3.6 mEq/L mEq/L (3.3-5.0) POC Chloride 93 mEq/L L mEq/L (97-110) Chloride 96 mEq/L L mEq/L (97-110) Carbon Dioxide 24 mEq/l mEq/l (22-31) Anion Gap 9 mEq/L mEq/L (8-16) POC BUN 9 mg/dL mg/dL (7-23) BUN 10 mg/dL mg/dL (7-23) Creatinine 0.5 mg/dL L mg/dL (0.6-1.0) POC Creatinine 0.6 mg/dL mg/dL (0.6-1.0) Estimated GFR > 60 Glucose 96 mg/dL mg/dL (70-100) POC Glucose 114 mg/dL H mg/dL (70-100) Calcium 7.4 mg/dL L mg/dL (8.5-10.4) Specimen Hemolysis 06/30/18 06/30/18 07:50 07:50 WBC 9.33 10^3/uL 10^3/uL (3.80-9.50) RBC 3.07 10^6/uL L 10^6/uL (4.18-5.33) Hgb 10.3 g/dL L g/dL (12.6-16.3) POC Hgb Hct 30.2 % L % (38.0-47.0) POC Hct MCV 98.4 fL fL (81.5-99.8) MCH 33.6 pg pg (27.9-34.1) MCHC 34.1 g/dL g/dL (32.4-36.7) RDW 18.0 % H % (11.5-15.2) Plt Count 379 10^3/uL 10^3/uL (150-400) MPV 7.8 fL L fL (8.7-11.7) Neut % (Auto) 71.3 % % (39.3-74.2) Lymph % (Auto) 22.9 % % (15.0-45.0) [place] % (Auto) 4.8 % % (4.5-13.0) Eos % (Auto) 0.1 % L % (0.6-7.6) Baso % (Auto) 0.4 % % (0.3-1.7) Nucleat RBC Rel Count 0.0 % % (0.0-0.2) Absolute Neuts (auto) 6.64 10^3/uL H 10^3/uL (1.70-6.50) Absolute Lymphs (auto) 2.14 10^3/uL 10^3/uL (1.00-3.00) Absolute Monos (auto) 0.45 10^3/uL 10^3/uL (0.30-0.80) Absolute Eos (auto) 0.01 10^3/uL L 10^3/uL (0.03-0.40) Absolute Basos (auto) 0.04 10^3/uL 10^3/uL (0.02-0.10) Absolute Nucleated RBC 0.00 10^3/uL 10^3/uL (0-0.01) Immature Gran % 0.5 % % (0.0-1.1) Immature Gran # 0.05 10^3/uL 10^3/uL (0.00-0.10) VBG Lactic Acid Turbidity TNP POC Sodium Sodium REJ POC Potassium Potassium TNP POC Chloride Chloride TNP Carbon Dioxide TNP Anion Gap TNP POC BUN BUN TNP Creatinine TNP POC Creatinine Estimated GFR TNP Glucose TNP POC Glucose Calcium TNP Specimen Hemolysis TNP Medications Given: Discontinued Medications Hydromorphone HCl (Dilaudid) 0.5 mg IVP EDNOW ONE Stop: 06/30/18 08:55 Last Admin: 06/30/18 09:07 Dose: 0.5 mg Sodium Chloride (Ns) 1,000 mls @ 0 mls/hr IV EDNOW ONE; Wide Open PRN Reason: Protocol Stop: 06/30/18 07:59 Last Admin: 06/30/18 08:23 Dose: 1,000 mls Ertapenem 1 gm/ Sodium (Chloride) 100 mls @ 200 mls/hr IV EDNOW ONE PRN Reason: Protocol Stop: 06/30/18 09:23 Last Admin: 06/30/18 09:27 Dose: 100 mls Sodium Chloride (Ns) 1,000 mls @ 0 mls/hr IV EDNOW ONE; Wide Open PRN Reason: Protocol Stop: 06/30/18 09:25 Last Admin: 06/30/18 09:27 Dose: 1,000 mls Point of Care Test Results: Chemistry 09/10/18 07:58 POC Sodium 131 mEq/L L mEq/L (135-145) POC Potassium 3.4 mEq/L mEq/L (3.3-5.0) POC Chloride 93 mEq/L L mEq/L (97-110) POC BUN 9 mg/dL mg/dL (7-23) POC Creatinine 0.6 mg/dL mg/dL (0.6-1.0) POC Glucose 114 mg/dL H mg/dL (70-100) ISTAT H&H 06/30/18 07:58 POC Hgb 10.9 gm/dL L gm/dL (12.6-16.3) POC Hct 32 % L % (38-47) Departure - Departure Disposition: [facility] Inpatient Acute Clinical Impression: Dehydration, Warfarin-induced coagulopathy Diverticulitis of intestine with abscess Qualifiers: Diverticulitis site: large intestine Diverticulitis bleeding: without bleeding Qualified Code(s): K57.20 - Diverticulitis of large intestine with perforation and abscess without bleeding Condition: Good
[2018-06-30] MEDS ORDERED: NS 1,000 ML IV ONE ×2 (07:58→09:24)
[2018-06-30] MEDS ORDERED: IOPAMIDOL (ISOVUE-300) 100 ML BTL ONE (08:05)
[2018-06-30 08:07] LABS: PLATELET COUNT 379 10^3/uL (150-400)
[2018-06-30] MEDS ORDERED: HYDROmorphONE/DILAUDID 2 MG/ML INJ IVP ONE (08:54)
[2018-06-30] MEDS ORDERED: ERTAPENEM 1 GM in NS 100 ML IV ONE (08:54)
[2018-06-30 09:41] LABS: INR 5.75 (0.83-1.16); PROTIME(PATIENT) 50.9 SEC (12.0-15.0)
[2018-06-30] MEDS: ONDANSETRON 4 MG/2 ML VIAL IVP PRN ×2 (11:21→22:36)
[2018-06-30] MEDS: HYDROmorphONE/DILAUDID 1 MG/ML INJ IVP PRN ×3 (11:22→15:54)
[2018-06-30] MEDS: NS 1,000 ML IV SCH ×2 (11:26→23:39)
[2018-06-30] MEDS: PIPERACILLIN/TAZO 3.375 GM/DEX 50 ML IV SCH ×3 (12:40→23:37)
[2018-06-30] MEDS ORDERED: HYDROmorphONE/DILAUDID 1 MG/ML INJ IVP PRN ×2 (15:57→20:30)
[2018-06-30] MEDS ORDERED: PHYTONADIONE 2.5 MG/2.5 ML ORAL UDL PO ONE (15:58)
--- NOTE | 2018-06-30 16:00 | PDGENHP ---
History and Physical - Chief Complaint Abdominal Pain, Fever - History of Present Illness Elyse Mcginnis is a 73 yo F with a PMHx of diverticulitis with colovesicular fistula and pelvic abscess, submassive PE on coumadin who presents with worsening LLQ and fevers. Patient was recently admitted with a pelvic abscess. She was seen by Dr. Gutierrez and Dr. Francesco Warner but left the next day against medical advice. She was also seen on June 23 for a head laceration which she apparently sustained when falling down. Today the patient presents with worsening left lower quadrant abdominal pain. Pain is described as moderate to severe, associated with fever and chills for the last 48 hrs. She was previously having some diarrhea but reports a normal formed BM this AM. She also denies n/v. She has had decreased PO intake within the past few days due to pain. History Information - Allergies/Home Medication List Allergies/Adverse Reactions: hydrocodone bitartrate [From Vicodin] Allergy (Severe, Verified 06/30/18 07:24) Vomiting ciprofloxacin Allergy (Unknown, Verified 06/30/18 07:24) Vomiting prochlorperazine Allergy (Unknown, Verified 06/30/18 07:24) parkinsonian-like reaction hydrocodone bitartrate Allergy (Unknown, Uncoded 06/30/18 07:24) Vomiting Home Medications: SUMAtriptan [Imitrex Nasal [place]] 20 mg NS DAILY PRN 07/18/15 [Last Taken ] oxyCODONE CR [Oxycontin] 20 mg PO BID@04/25/16 [Last Taken 06/30/18] oxyCODONE IR [Oxycodone Ir (*)] 10 mg PO TID PRN 01/06/18 [Last Taken 06/12/18 06:00] Potassium Cl [Klor-Con] 10 - 20 meq PO BID@06/11/18 [Last Taken 06/29/18 18:00 10 meq] Ondansetron Odt [Zofran Odt 4 mg (*)] 4 mg PO Q4HRS PRN 06/12/18 [Last Taken 08/07] Warfarin Sodium [Coumadin 4MG (*)] 4 mg PO DAILY@13 06/30/18 [Last Taken ] I have personally reviewed and updated: family history, medical history, social history, surgical history - Past Medical History Additional medical history: Chronic pain related to post-herpetic neuralgia. Diverticulosis. Migraines - Surgical History Reports: no pertinent surgical hx - Family History Additional family history: DVT/PE in aunt and maternal grandmother, mother with Parkinson's, father with diverticulosis - Social History Smoking Status: Never smoked Additional social history: lives at home with daughter. 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 Review of Systems Review of Systems: ROS: 10pt was reviewed & negative except for what was stated in HPI & below Physical Exam Physical Exam: Temp Pulse Resp BP Pulse Ox 37.2 C 97 18 151/85 H 96 06/30/18 15:57 06/30/18 11:45 06/30/18 11:45 06/30/18 11:45 06/30/18 11:45 O2 (L/minute) 2 Constitutional: no apparent distress Eyes: PERRL Ears, Nose, Mouth, Throat: dry mucous membranes Cardiovascular: regular rate and rhythym Respiratory: no respiratory distress, clear to auscultation Gastrointestinal: tenderness (TTP in LLQ), No guarding, No rebound, No distension Genitourinary: No arias in urethra Skin: warm Musculoskeletal: no muscle tenderness Neurologic: AAOx3 Psychiatric: interacting appropriately Lymph, Heme, Immunologic: No ecchymoses, No petechiae Lab Data & Imaging Review 06/30/18 07:50 06/30/18 08:45 WBC 9.33 10^3/uL (3.80-9.50) 06/30/18 07:50 RBC 3.07 10^6/uL (4.18-5.33) L 06/30/18 07:50 Hgb 10.3 g/dL (12.6-16.3) L 06/30/18 07:50 POC Hgb 10.9 gm/dL (12.6-16.3) L 06/30/18 07:58 Hct 30.2 % (38.0-47.0) L 06/30/18 07:50 POC Hct 32 % (38-47) L 06/30/18 07:58 MCV 98.4 fL (81.5-99.8) 06/30/18 07:50 MCH 33.6 pg (27.9-34.1) 06/30/18 07:50 MCHC 34.1 g/dL (32.4-36.7) 06/30/18 07:50 RDW 18.0 % (11.5-15.2) H 06/30/18 07:50 Plt Count 379 10^3/uL (150-400) 06/30/18 07:50 MPV 7.8 fL (8.7-11.7) L 06/30/18 07:50 Neut % (Auto) 71.3 % (39.3-74.2) 06/30/18 07:50 Lymph % (Auto) 22.9 % (15.0-45.0) 06/30/18 07:50 [place] % (Auto) 4.8 % (4.5-13.0) 06/30/18 07:50 Eos % (Auto) 0.1 % (0.6-7.6) L 06/30/18 07:50 Baso % (Auto) 0.4 % (0.3-1.7) 06/30/18 07:50 Nucleat RBC Rel Count 0.0 % (0.0-0.2) 06/30/18 07:50 Absolute Neuts (auto) 6.64 10^3/uL (1.70-6.50) H 06/30/18 07:50 Absolute Lymphs (auto) 2.14 10^3/uL (1.00-3.00) 06/30/18 07:50 Absolute Monos (auto) 0.45 10^3/uL (0.30-0.80) 06/30/18 07:50 Absolute Eos (auto) 0.01 10^3/uL (0.03-0.40) L 06/30/18 07:50 Absolute Basos (auto) 0.04 10^3/uL (0.02-0.10) 06/30/18 07:50 Absolute Nucleated RBC 0.00 10^3/uL (0-0.01) 06/30/18 07:50 Immature Gran % 0.5 % (0.0-1.1) 06/30/18 07:50 Immature Gran # 0.05 10^3/uL (0.00-0.10) 06/30/18 07:50 PT 50.9 SEC (12.0-15.0) H 06/30/18 09:15 INR 5.75 (0.83-1.16) H* 06/30/18 09:15 VBG Lactic Acid 1.0 mmol/L (0.7-2.1) 06/30/18 09:00 Turbidity TNP 06/30/18 07:50 POC Sodium 131 mEq/L (135-145) L 06/30/18 07:58 Sodium 129 mEq/L (135-145) L 06/30/18 08:45 POC Potassium 3.4 mEq/L (3.3-5.0) 06/30/18 07:58 Potassium 3.6 mEq/L (3.3-5.0) 06/30/18 08:45 POC Chloride 93 mEq/L (97-110) L 06/30/18 07:58 Chloride 96 mEq/L (97-110) L 06/30/18 08:45 Carbon Dioxide 24 mEq/l (22-31) 06/30/18 08:45 Anion Gap 9 mEq/L (8-16) 06/30/18 08:45 POC BUN 9 mg/dL (7-23) 06/30/18 07:58 BUN 10 mg/dL (7-23) 06/30/18 08:45 Creatinine 0.5 mg/dL (0.6-1.0) L 06/30/18 08:45 POC Creatinine 0.6 mg/dL (0.6-1.0) 06/30/18 07:58 Estimated GFR > 60 06/30/18 08:45 Glucose 96 mg/dL (70-100) 06/30/18 08:45 POC Glucose 114 mg/dL (70-100) H 06/30/18 07:58 Calcium 7.4 mg/dL (8.5-10.4) L 06/30/18 08:45 Specimen Hemolysis TNP 06/30/18 07:50 Assessment & Plan Assessment: Diverticulitis of intestine with abscess and perforation (Acute) - Patient recently admitted in May with diverticulitis with colovesicular fistula and pelvic abscess, Dr. Gutierrez was consulted who recommended surgery and patient left AMA prior to this - Representing today with increased LLQ pain and fevers - CT from admission shows redemonstration of sigmoid diverticulitis with increase in size of contained perforation - Surgery consulted on admission who plan to take to surgery Saturday - Patient HD stable on admission, afebrile - Will start Zosyn empirically - Will start Clear liquid diet, NPO prior to surgery - If acute worsening of pain, concerning changes in abdominal exam, HD unstable will consult surgery STAT for evaluation Warfarin-induced coagulopathy (Acute) - Patient on Coumadin for submassive PE - INR on admission 5.75 - Reversal of INR prior to surgery, will give 5 mg PO Vit K this afternoon, will redose as needed to achieve INR <1.0 - Will order SCDs for DVT ppx, will bridge with Lovenox when INR subtherapeutic Hyponatremia (Acute) - Na 129 on admission - Likely hypovolemic hyponatremia in setting of decreased PO intake - Continue to monitor Na Migraines - continue home Triptan FEN: IVF PRN Ppx: Coumadin, SCDs Diet: Clears Code: FULL Dispo: Admit to Medicine, pending clinical course
[2018-06-30] MEDS ORDERED: SUMAtriptan 20 MG/SPRAY BTL NS PRN (16:23)
--- NOTE | 2018-06-30 17:26 | PDMN ---
Medical Necessity Medical necessity: [facility] M150 Diverticulitis: 73 y/o presents w/ abd pain, tachycardic, dx w/ diverticulitis of intestine w/ abscess and perforation (acute ), surgical consult, surgery pending, IV antibx started, also important to note , pt w/ acute warfarin induced coagulopathy, reverse w/ vit K, pt is hyponatremic Na 129 and hypovolemic, IV fluid replacement required. Anticipate> 2MN for ongoing monitoring and treatment.
[2018-06-30] MEDS ORDERED: HYDROmorphone HCL 0.5 MG/0.5 ML SYR IVP PRN (18:30)
[2018-06-30] MEDS: HYDROCODONE/APAP 5/325 TAB PO PRN (22:19)
[2018-07-01] MEDS: ONDANSETRON DISINTEGRATING 4 MG TAB PO PRN (01:35)
[2018-07-01] MEDS: ACETAMINOPHEN 325 MG TAB PO PRN (01:36)
[2018-07-01] MEDS: MELATONIN 3 MG TAB PO PRN (01:59)
[2018-07-01] MEDS: HYDROCODONE/APAP 5/325 TAB PO PRN ×5 (03:41→23:36)
[2018-07-01] MEDS: PIPERACILLIN/TAZO 3.375 GM/DEX 50 ML IV SCH ×4 (05:30→23:17)
--- NOTE | 2018-07-01 07:47 | GCON ---
DATE OF CONSULTATION: 06/30/2018 REFERRING PHYSICIAN: Shoaib Reyna MD HISTORY OF PRESENT ILLNESS: This patient was referred by Dr. Shoaib Reyna. The patient returns to [facility] Emergency Department for re-evaluation of left lower quadrant pain. The patient wa s recently admitted for a similar pain and found to have a severe diverticular abscess with possible colovesical fistula. The patient left the hospital before a full workup or surgery could be complete d. The patient states that over the last few days, her pain has increased. She has had diarrhea, bu t no bright red blood per rectum. The patient had been tolerating p.o. fairly well, but this has dec reased. The patient has had some dysuria and has recently been unable to void. PAST MEDICAL HISTORY: Significant for pulmonary embolism, diverticulitis, neuralgia. PAST SURGICAL HISTORY: Essentially negative. MEDICATIONS: Include Coumadin, Imitrex, OxyContin, and Zofran. ALLERGIES: Include hydrocodone, ciprofloxacin, prochlorperazine, hydrocodone. SOCIAL HISTORY: The patient is a nonsmoker. PHYSICAL EXAM: VITAL SIGNS: Temperature is 37.6, pulse 97, blood pressure 151/85, respiratory rate is 18. GENERAL: She is an alert female, appears uncomfortable. EYES: Her sclerae are anicteric. NECK: There is no evidence of jugular venous distention. CARDIAC: Heart is slightly tachycardic bu t regular. RESPIRATORY: Lungs are clear to auscultation bilaterally. ABDOMEN: Moderately distende d. It is tender to palpation in the suprapubic and left lower quadrant. There is some guarding, but no definite rebound. No discrete masses are identified, although there is a fullness in the left lo wer quadrant. No erythema is identified. EXTREMITIES: Without cyanosis, clubbing, or edema. DIAGNOSTIC DATA: The patient has a CBC with a white count of 9.3, hemoglobin 10.3, hematocrit of 30. 2, and platelets of 379. Chemistries demonstrate sodium 131, potassium 3.4, chloride 93, creatinine 0.6, and glucose 114. DIAGNOSTIC IMAGING: Patient had a CT scan of the abdomen and pelvis that demonstrates slight enlarge ment of the prior diverticular abscess. There is also more air in the bladder identified. No signif icant free fluid is identified nor is there any intraperitoneal free air. ASSESSMENT/PLAN: This is a 73-year-old female with worsening diverticular abscess with likely colove sical fistula. Options were again reviewed with the patient and her family. I have recommended open sigmoid colectomy with colostomy placement. If the patient recovered well, this would likely be a t emporary colostomy which could be taken down with a 2nd operation in 4-6 months. Once again, the pat ient's high risk was described in detail, including the risk of peritonitis and sepsis. The patient was again encouraged to undergo surgery as soon as possible following the correction of her electroly josias and coagulation status. The patient understands and concurs with this assessment. We will plan for admission and correction of the above and tentatively schedule surgery for 07/02/2018. /[id number]/MODL
[2018-07-01] MEDS: HYDROmorphONE/DILAUDID 1 MG/ML INJ IVP PRN ×4 (09:22→21:33)
--- NOTE | 2018-07-01 10:25 | WOCRNPDOC ---
WOCRPrashanth Advanced Assessment Note - Skin Integrity Problem, Advanced Assess Left Elbow Dressing Type: Open to Air Saida Wound Tissue: Blanching Wound Bed Constitution: Scab Site Measurement - Head-to-Toe Length X Width X Depth (cm): [id number] Skin Integrity Problem Comment: Scabbed area that is healing. May use wound gel and an allevyn dressing to cover and protect it. Wound care will sign off. Please reconsult PRN. Debbie LEDBETTER in room for care. Left Arm Dressing Type: Gauze Dressing Description: Shadowed Exudate Characteristic(s): Dried, Sanguinous Integumentary Issue Intervention: Dressing Removed Skin Integrity Problem Comment: Dressing removed by Debbie LEDBETTER. Daughter states that she placed the dressing. Wound is a skin tear. Please refer to skin tear policy for dressing guidelines. Wound care will sign off. Please reconsult PRN.
[2018-07-01 10:44] LABS: INR 5.97 (0.83-1.16); PROTIME(PATIENT) 52.4 SEC (12.0-15.0)
[2018-07-01] MEDS ORDERED: PHYTONADIONE 10 MG in NS 50 ML IV ONE (10:46)
--- NOTE | 2018-07-01 10:46 | HOSPPROG ---
Hospitalist Progress Note Assessment/Plan: Diverticulitis of intestine with abscess and perforation (Acute) - Patient recently admitted in May with diverticulitis with colovesicular fistula and pelvic abscess, Dr. Gutierrez was consulted who recommended surgery and patient left AMA prior to this - Representing today with increased LLQ pain and fevers - CT from admission shows redemonstration of sigmoid diverticulitis with increase in size of contained perforation - Surgery consulted on admission who plan to take to surgery Saturday - Patient HD stable on admission, afebrile - Will continue Zosyn empirically - Clear liquid diet, NPO prior to surgery - If acute worsening of pain, concerning changes in abdominal exam, HD unstable will consult surgery STAT for evaluation Warfarin-induced coagulopathy (Acute) - Patient on Coumadin for submassive PE - INR on admission 5.75 - Holding coumadin and reversal of INR prior to surgery, s/p 5 mg PO Vit K yesterday, will give 10 mg IV Vit K this AM, will redose as needed - Patient may require FFP prior to surgery for reversal if INR not <1 - Will order SCDs for DVT ppx, will bridge with Lovenox when INR subtherapeutic Hyponatremia (Acute) - Na 129 on admission, 134 this AM - Likely hypovolemic hyponatremia in setting of decreased PO intake - Continue to monitor Na Migraines - continue home Triptan FEN: IVF PRN Ppx: Coumadin, SCDs Diet: Clears Code: FULL Dispo: Pending clinical course Subjective: Patient reports mild LLQ discomfort this morning Objective: Vital Signs Temp Pulse Resp BP Pulse Ox 36.5 C 82 16 126/79 H 95 07/01/18 08:00 07/01/18 08:00 07/01/18 08:00 07/01/18 08:00 07/01/18 08:00 Laboratory Results 07/01/18 09:53 06/30/18 07/01/18 07/02/18 05:59 05:59 05:59 Intake Total 3180 Balance 3180 PT 52.4 SEC (12.0-15.0) H 07/01/18 09:53 INR 5.97 (0.83-1.16) H* 07/01/18 09:53 - Physical Exam Constitutional: no apparent distress Eyes: PERRL Ears, Nose, Mouth, Throat: moist mucous membranes Cardiovascular: regular rate and rhythym Respiratory: no respiratory distress Gastrointestinal: normoactive bowel sounds, tenderness (TTP in LLQ) Genitourinary: no bladder fullness Skin: warm Musculoskeletal: full muscle strength Neurologic: AAOx3 Psychiatric: interacting appropriately ICD10 Worksheet Patient Problems: Problems Problem Status Onset Dehydration Acute Diverticulitis of intestine with abscess Acute Warfarin-induced coagulopathy Acute Acute diverticulitis Acute Bladder wall thickening Acute Diarrhea Acute Diverticulitis Acute Gastroenteritis and colitis, viral Acute Hypokalemia Acute Hyponatremia Acute Pulmonary embolism Acute Post herpetic neuralgia Chronic
[2018-07-01] MEDS ORDERED: PROTOCOL POTASSIUM 1 DOSE MISC PRN (10:56)
--- NOTE | 2018-07-01 11:25 | ASMTCASEMG ---
Living Arrangements What is your living Answers: Alone arrangement? Who do you live with? Type Of Residence What kind of residence do Answers: House you live in? Discharge Plan Comments Coordination Status Comments Notes: Pt is a 73 y/o female admitted for diverticular abscess with possible colovesical fistula. Dr. Marin plans on taking pt to surgery. Therapies have been ordered and awaiting recommendations. Needs are TBD at this time. CM to follow. Plan: TBD Date Signed: 07/01/2018 11:24 AM Electronically Signed By:YIMI Hager
[2018-07-01] MEDS ORDERED: POTASSIUM CL 10 MEQ TAB PO ONE ×2 (11:32→19:43)
[2018-07-01] MEDS ORDERED: LORazepam 2 MG/ML INJ IVP PRN (19:07)
[2018-07-01] MEDS: NS 1,000 ML IV SCH (23:17)
[2018-07-01 23:25] LABS: INR 2.16 (0.83-1.16); PROTIME(PATIENT) 24.1 SEC (12.0-15.0)
[2018-07-02] MEDS: HYDROCODONE/APAP 5/325 TAB PO PRN ×5 (03:49→22:36)
[2018-07-02] MEDS: HYDROmorphONE/DILAUDID 1 MG/ML INJ IVP PRN ×5 (04:28→20:33)
[2018-07-02] MEDS: PIPERACILLIN/TAZO 3.375 GM/DEX 50 ML IV SCH ×3 (05:33→17:19)
[2018-07-02 05:42] LABS: INR 1.47 (0.83-1.16)
[2018-07-02] MEDS ORDERED: POTASSIUM CL 10 MEQ TAB PO ONE (08:07)
--- NOTE | 2018-07-02 09:40 | HOSPPROG ---
Hospitalist Progress Note Assessment/Plan: Diverticulitis of intestine with abscess and perforation (Acute) - Patient recently admitted in May with diverticulitis with colovesicular fistula and pelvic abscess, Dr. Gutierrez was consulted who recommended surgery and patient left AMA prior to this - Representing today with increased LLQ pain and fevers - CT from admission shows redemonstration of sigmoid diverticulitis with increase in size of contained perforation - Surgery consulted on admission who had planned to take to surgery today - Patient HD stable on admission, afebrile - Will continue Zosyn empirically - NPO currently. If no surgery, will go back to [facility] - If acute worsening of pain, concerning changes in abdominal exam, HD unstable will consult surgery STAT for evaluation Warfarin-induced coagulopathy (Acute) - Patient on Coumadin for submassive PE - INR on admission 5.75 -s/p reversal -SCD's for now Hyponatremia (Acute) - Na 129 on admission, 134 this AM - Likely hypovolemic hyponatremia in setting of decreased PO intake - Continue to monitor Na Migraines - continue home Triptan FEN: IVF PRN Ppx: SCDs Diet: Clears Code: FULL Dispo: Pending clinical course Plan: The patient was scheduled to have surgery today. It appears that this has been postponed but this is unclear. Her INR was elevated yesterday but then decreased and is below 2 today. Nursing is contacting Surgery to clarify. The pt will remain NPO while this is clarified. Subjective: unclear if she will have surgery today. Objective: Vital Signs Temp Pulse Resp BP Pulse Ox 36.6 C 86 14 132/71 H 97 07/02/18 07:48 07/02/18 07:48 07/02/18 07:48 07/02/18 07:48 07/02/18 07:48 Laboratory Results 07/02/18 05:10 07/01/18 07/02/18 07/03/18 05:59 05:59 05:59 Intake Total 3180 300 Balance 3180 300 PT 18.0 SEC (12.0-15.0) H 07/02/18 04:24 INR 1.47 (0.83-1.16) H 07/02/18 04:24 - Physical Exam Constitutional: no apparent distress Eyes: PERRL Ears, Nose, Mouth, Throat: moist mucous membranes, hearing normal, ears appear normal Cardiovascular: regular rate and rhythym Respiratory: no respiratory distress, no rales or rhonchi, clear to auscultation Gastrointestinal: normoactive bowel sounds, tenderness, No distension Skin: warm Neurologic: AAOx3 Psychiatric: interacting appropriately, not anxious, not encephalopathic Lymph, Heme, Immunologic: No petechiae ICD10 Worksheet Patient Problems: Problems Problem Status Onset Dehydration Acute Diverticulitis of intestine with abscess Acute Warfarin-induced coagulopathy Acute Acute diverticulitis Acute Bladder wall thickening Acute Diarrhea Acute Diverticulitis Acute Gastroenteritis and colitis, viral Acute Hypokalemia Acute Hyponatremia Acute Pulmonary embolism Acute Post herpetic neuralgia Chronic
--- NOTE | 2018-07-02 10:00 | SOAPPROG ---
SOAP Progress Note Assessment/Plan: Assessment: Colovesical fistula, diverticular abscess, h/o PE. INR markedly improved; start lovenox with last dose 07/03 at 7 AM. Surgery currently schedule for 1 PM 07/03. Discussed at length with patient and family, plan for ex lap, sigmoidectomy, colostomy, likely bladder resection, possible uterine repair. 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 Plan: 07/02/18 09:57 Subjective: Patient with continued abd pain, slightly improved. Some N no V. Ambulating. Denies vaginal d/c, still with some dysuria. Objective: Vital Signs Temp Pulse Resp BP Pulse Ox 36.6 C 86 14 132/71 H 97 07/02/18 07:48 07/02/18 07:48 07/02/18 07:48 07/02/18 07:48 07/02/18 07:48 Laboratory Results 07/02/18 05:10 07/01/18 07/02/18 07/03/18 05:59 05:59 05:59 Intake Total 3180 300 Balance 3180 300 PT 18.0 SEC (12.0-15.0) H 07/02/18 04:24 INR 1.47 (0.83-1.16) H 07/02/18 04:24 Alert, NAD Abd soft, NTTP No discrete mass palpated. ICD10 Worksheet Patient Problems: Problems Problem Status Onset Dehydration Acute Diverticulitis of intestine with abscess Acute Warfarin-induced coagulopathy Acute Acute diverticulitis Acute Bladder wall thickening Acute Diarrhea Acute Diverticulitis Acute Gastroenteritis and colitis, viral Acute Hypokalemia Acute Hyponatremia Acute Pulmonary embolism Acute Post herpetic neuralgia Chronic
[2018-07-02] MEDS: POLYETHYLENE GLYCOL 3350 17 GM PKT PO SCH (10:30)
[2018-07-02] MEDS: ENOXAPARIN 60 MG/0.6 ML SYR SC SCH ×2 (10:30→20:35)
[2018-07-02] MEDS ORDERED: POTASSIUM CL 20 MEQ TAB PO ONE (20:38)
[2018-07-03] MEDS: HYDROmorphONE/DILAUDID 1 MG/ML INJ IVP PRN ×9 (00:34→18:58)
[2018-07-03] MEDS: PIPERACILLIN/TAZO 3.375 GM/DEX 50 ML IV SCH ×4 (00:35→21:44)
[2018-07-03] MEDS: HYDROCODONE/APAP 5/325 TAB PO PRN ×2 (02:40→06:40)
[2018-07-03] MEDS: ONDANSETRON DISINTEGRATING 4 MG TAB PO PRN ×2 (04:27→11:14)
[2018-07-03 05:35] LABS: PLATELET COUNT 357 10^3/uL (150-400)
[2018-07-03 05:44] LABS: INR 1.71 (0.83-1.16); PROTIME(PATIENT) 20.2 SEC (12.0-15.0)
[2018-07-03] MEDS ORDERED: ENOXAPARIN 60 MG/0.6 ML SYR SC ONE (07:00)
[2018-07-03] MEDS ORDERED: POTASSIUM CL 10 MEQ TAB PO ONE (07:04)
[2018-07-03] MEDS: NS 1,000 ML IV SCH (08:50)
[2018-07-03] MEDS ORDERED: BUPIVACAINE 0.5% 30 ML SDV ONE (09:53)
[2018-07-03] MEDS: POLYETHYLENE GLYCOL 3350 17 GM PKT PO SCH (10:14)
--- NOTE | 2018-07-03 12:08 | HOSPPROG ---
Hospitalist Progress Note Assessment/Plan: Diverticulitis of intestine with abscess and perforation (Acute) - Patient recently admitted in May with diverticulitis with colovesicular fistula and pelvic abscess, Dr. Gutierrez was consulted who recommended surgery and patient left AMA prior to this - Representing today with increased LLQ pain and fevers - CT from admission shows recurrence of sigmoid diverticulitis with increase in size of contained perforation - Surgery consulted on admission who plans to take to surgery today - Patient HD stable on admission, afebrile - Will continue Zosyn empirically - If acute worsening of pain, concerning changes in abdominal exam, HD unstable will consult surgery STAT for evaluation Warfarin-induced coagulopathy (Acute) - Patient on Coumadin for submassive PE - INR on admission 5.75 -s/p reversal -SCD's for now Hyponatremia (Acute) - Na 129 on admission, 134 this AM - Likely hypovolemic hyponatremia in setting of decreased PO intake - Continue to monitor Na Migraines - continue home Triptan FEN: IVF PRN Ppx: SCDs Diet: Clears Code: FULL Dispo: Pending clinical course Plan: the pt will have surgery today post op care per surgery Subjective: no cp or sob. still with abd pain. awaiting surgery Objective: Vital Signs Temp Pulse Resp BP Pulse Ox 36.5 C 92 18 149/88 H 98 07/03/18 11:56 07/03/18 11:56 07/03/18 11:56 07/03/18 11:56 07/03/18 11:56 Laboratory Results 07/03/18 04:08 07/03/18 04:08 07/02/18 07/03/18 07/04/18 05:59 05:59 05:59 Intake Total 300 0 Balance 300 0 PT 20.2 SEC (12.0-15.0) H 07/03/18 04:08 INR 1.71 (0.83-1.16) H 07/03/18 04:08 - Physical Exam Constitutional: no apparent distress Eyes: PERRL Ears, Nose, Mouth, Throat: moist mucous membranes, hearing normal Cardiovascular: regular rate and rhythym, No edema Respiratory: no respiratory distress, no rales or rhonchi, clear to auscultation Gastrointestinal: tenderness Skin: warm Neurologic: AAOx3 Psychiatric: interacting appropriately, not anxious, not encephalopathic Lymph, Heme, Immunologic: No petechiae ICD10 Worksheet Patient Problems: Problems Problem Status Onset Dehydration Acute Diverticulitis of intestine with abscess Acute Warfarin-induced coagulopathy Acute Acute diverticulitis Acute Bladder wall thickening Acute Diarrhea Acute Diverticulitis Acute Gastroenteritis and colitis, viral Acute Hypokalemia Acute Hyponatremia Acute Pulmonary embolism Acute Post herpetic neuralgia Chronic
--- NOTE | 2018-07-03 12:46 | PDANEPAE ---
ANE History of Present Illness diverticulitis, here for LAR/colectomy ANE Past Medical History - Cardiovascular History Hx Hypertension: No Hx Arrhythmias: No Hx Chest Pain: No - Pulmonary History Hx Oxygen in Use at Home: Yes O2 in Use at Home (L/minute): 2 Hx Sleep Apnea: No Sleep Apnea Screening Result - Last Documented: Negative - Endocrine History Hx Diabetes: No - GI History Gastrointestinal History Comment: diverticulitis - Chronic Pain History Chronic Pain: Yes ANE Review of Systems Review of Systems: - Exercise capacity METS (RN): 4 METS ANE Patient History - Allergies Allergies/Adverse Reactions: hydrocodone bitartrate [From Vicodin] Allergy (Severe, Verified 06/30/18 07:24) Vomiting ciprofloxacin Allergy (Unknown, Verified 06/30/18 07:24) Vomiting prochlorperazine Allergy (Unknown, Verified 06/30/18 07:24) parkinsonian-like reaction hydrocodone bitartrate Allergy (Unknown, Uncoded 06/30/18 07:24) Vomiting - Home Medications Home medications: home medication list seen and reviewed Home Medications: SUMAtriptan [Imitrex Nasal [place]] 20 mg NS DAILY PRN 07/18/15 [Last Taken ] oxyCODONE CR [Oxycontin] 20 mg PO BID@04/25/16 [Last Taken 06/30/18] oxyCODONE IR [Oxycodone Ir (*)] 10 mg PO TID PRN 01/06/18 [Last Taken 06/12/18 06:00] Potassium Cl [Klor-Con] 10 - 20 meq PO BID@,06/11/18 [Last Taken 06/29/18 18:00 10 meq] Ondansetron Odt [Zofran Odt 4 mg (*)] 4 mg PO Q4HRS PRN 06/12/18 [Last Taken 08/07] Warfarin Sodium [Coumadin 4MG (*)] 4 mg PO DAILY@13 06/30/18 [Last Taken ] - NPO status NPO Status: no food or drink >8 hours NPO Since - Liquids (Date): 07/03/18 NPO Since - Liquids (Time): 00:00 NPO Since - Solids (Date): 07/03/18 NPO Since - Solids (Time): 00:00 - Anes Hx Anes Hx: post operative nausea and vomiting - Smoking Hx Smoking Status: Never smoked - Alcohol Use Alcohol Use: None - Family Anes Hx Family Anes Hx: none ANE Labs/Vital Signs - Labs Result Diagrams: 07/03/18 04:08 07/03/18 04:08 - Vital Signs Blood Pressure: 149/88 Heart Rate: 92 Respiratory Rate: 18 O2 Sat (%): 98 Height: 162.56 cm Weight: 58.967 kg ANE Physical Exam - Airway Neck exam: FROM Mallampati Score: Class 2 Mouth exam: normal dental/mouth exam - Pulmonary Pulmonary: no respiratory distress, clear to auscultation - Cardiovascular Cardiovascular: regular rate and rhythym, no murmur, rub, or gallop - ASA Status ASA Status: III ANE Anesthesia Plan Anesthesia Plan: general endotracheal anesthesia Total IV Anesthesia: Yes
[2018-07-03] MEDS ORDERED: PROPOFOL 200 MG/20 ML VIAL ONE (12:59)
[2018-07-03] MEDS ORDERED: fentaNYL 100 MCG/2 ML INJ ONE ×4 (12:59→23:11)
[2018-07-03] MEDS ORDERED: ROCURONIUM 100 MG/10 ML VIAL ONE (13:03)
[2018-07-03] MEDS ORDERED: LIDOCAINE 2% 100 MG/5 ML SYR ONE (13:03)
[2018-07-03] MEDS ORDERED: PROPOFOL/EMULSION 500 MG/50 ML BOTTLE IV ONE ×2 (13:53→15:09)
[2018-07-03] MEDS ORDERED: BUPIVACAINE 0.25% 270 ML in PUMP SET 1 EA NB SCH (14:30)
[2018-07-03] MEDS ORDERED: ALBUMIN 5% 250 ML BOTTLE IV ONE ×3 (16:30→20:14)
[2018-07-03] MEDS ORDERED: HYDROmorphONE/DILAUDID 2 MG/ML INJ ONE ×2 (16:53→18:01)
[2018-07-03] MEDS ORDERED: ONDANSETRON 4 MG/2 ML VIAL IVP PRN (17:30)
[2018-07-03] MEDS ORDERED: ACETAMINOPHEN 500 MG TAB PO PRN (17:30)
[2018-07-03] MEDS ORDERED: oxyCODONE IR 5 MG TAB PO PRN (17:30)
[2018-07-03] MEDS ORDERED: NALOXONE HCL 0.4 MG/ML INJ IVP PRN (17:30)
[2018-07-03] MEDS ORDERED: DIAZEPAM 5 MG/ML 1 ML SYR IVP PRN (17:30)
--- NOTE | 2018-07-03 17:35 | POSTANESTH ---
Post Anesthetic Evaluation Cardiovascular Status: Normal, Stable, Similar to Pre-Op Cond Respiratory Status: Normal, Stable, Similar to Pre-op Cond. Level of Consciousness/Mental Status: Mildly Sleepy, Arousable, Moderately Sleepy Pain Control: Adequate, Prn Tx Ordered Nausea/Vomiting Control: Adequate, Prn Tx Ordered Complications Possibly Related to Anesthesia: None Noted
--- NOTE | 2018-07-03 17:54 | POSTOPPROG ---
Post Op Note Date of Operation: 07/03/18 Surgeon: Trevor Gutierrez Risk Management Director: Deidre Roth MSIII Anesthesiologist: Dr. Duncan Anesthesia: GET(General Endotracheal) Pre-op Diagnosis: Diverticular abscess, colovesical fistula Post-op Diagnosis: same Procedure: Sigmoidectomy, Gordon's, repair colovesical fistula Findings: Minimal uterine involvement, large fistula to bladder Inf/Abcess present in the surg proc area at time of surgery?: Yes Depth: Organ Space EBL: 50-100
[2018-07-03] MEDS: fentaNYL 100 MCG/2 ML INJ IVP PRN ×2 (18:00→18:06)
[2018-07-03] MEDS ORDERED: ONDANSETRON 4 MG/2 ML VIAL ONE ×2 (20:11→23:13)
[2018-07-03] MEDS ORDERED: ALBUMIN 5% 250 ML IV ONE (20:15)
[2018-07-03] MEDS ORDERED: NOREPINEPHRINE BITARTRATE 4 MG in NS 500 ML IV ONE (20:30)
--- NOTE | 2018-07-03 21:03 | SOAPPROG ---
SOAP Progress Note Assessment/Plan: Responded to STAT team in PACU on post operative patient Ras. Noted to by hypotensive to 50's systolic, pale but responding to questions. Chart reviewed, patient s/p sigmoidectomy for perforated diverticulitis with repair of colovesicular fistula. In PACU became acutely hypotensive and tachycardic, antione blood noted in arias catheter, abdomen exquisitely tender but soft. Labs ordered, 2 units of emergency blood ordered, given albumin/NS bolus and started on levophed while awaiting surgery. Surgeon at bedside and placed central venous catheter, ordered CT abd/pelvis to eval for post operative intra- abdominal hemorrhage. BP improved, patient still mentating. > 60 minutes spent in critical care of patient at bedside in evaluation of exam, tele monitoring, lab evaluation, ordering medications, discussion with nursing and surgery Objective: Vital Signs Temp Pulse Resp BP Pulse Ox 36.6 C 99 19 93/61 L 97 07/03/18 18:45 07/03/18 17:28 07/03/18 20:45 07/03/18 20:45 07/03/18 20:40 07/02/18 07/03/18 07/04/18 05:59 05:59 05:59 Intake Total 300 0 Balance 300 0 PT 20.2 SEC (12.0-15.0) H 07/03/18 04:08 INR 1.71 (0.83-1.16) H 07/03/18 04:08 ICD10 Worksheet Patient Problems: Problems Problem Status Onset Gastroenteritis and colitis, viral Acute Post herpetic neuralgia Chronic Diverticulitis Acute Diarrhea Acute Acute diverticulitis Acute Bladder wall thickening Acute Pulmonary embolism Acute Hypokalemia Acute Hyponatremia Acute Diverticulitis of intestine with abscess Acute Warfarin-induced coagulopathy Acute Dehydration Acute
--- NOTE | 2018-07-03 21:08 | SOAPPROG ---
SOAP Progress Note Assessment/Plan: Assessment: s/p Gordon's/repair of bladder for colovesical fistula, now with hypotension/ tachycardia. Concern for bleeding; check U/S. If + plan RTOR. L SC CVP placed under sterile conditions. 1%lidocaine for local; L SC vein aspirated and wire placed. Dilator then sheath placed, CVP placed to 16 cm. All ports asp./flush easily. Secured with sutures and sterile dressing applied. CXR shows good placement, no ptx. Plan: 07/02/18 09:57 07/03/18 21:05 Objective: Vital Signs Temp Pulse Resp BP Pulse Ox 36.6 C 99 19 93/61 L 97 07/03/18 18:45 07/03/18 17:28 07/03/18 20:45 07/03/18 20:45 07/03/18 20:40 07/02/18 07/03/18 07/04/18 05:59 05:59 05:59 Intake Total 300 0 Balance 300 0 PT 20.2 SEC (12.0-15.0) H 07/03/18 04:08 INR 1.71 (0.83-1.16) H 07/03/18 04:08 ICD10 Worksheet Patient Problems: Problems Problem Status Onset Dehydration Acute Diverticulitis of intestine with abscess Acute Warfarin-induced coagulopathy Acute Acute diverticulitis Acute Bladder wall thickening Acute Diarrhea Acute Diverticulitis Acute Gastroenteritis and colitis, viral Acute Hypokalemia Acute Hyponatremia Acute Pulmonary embolism Acute Post herpetic neuralgia Chronic
[2018-07-03 21:13] LABS: PLATELET COUNT 359 10^3/uL (150-400)
[2018-07-03 21:22] LABS: INR 4.31 (0.83-1.16); PROTIME(PATIENT) 40.9 SEC (12.0-15.0)
[2018-07-03] MEDS: oxyCODONE IR 5 MG TAB PO PRN (22:40)
[2018-07-03] MEDS ORDERED: BUPIVACAINE 0.25% 30 ML SDV ONE (22:52)
[2018-07-03] MEDS ORDERED: ETOMIDATE 20 MG/10 ML VIAL ONE (23:11)
[2018-07-03] MEDS ORDERED: ROCURONIUM 50 MG/5 ML VIAL ONE (23:13)
[2018-07-03] MEDS ORDERED: LIDOCAINE 2% 2 ML INJ ONE (23:13)
--- NOTE | 2018-07-03 23:29 | PDANEPAE ---
ANE Past Medical History - Cardiovascular History Hx Hypertension: No Hx Arrhythmias: No Hx Chest Pain: No - Pulmonary History Hx Oxygen in Use at Home: Yes O2 in Use at Home (L/minute): 2 Hx Sleep Apnea: No Sleep Apnea Screening Result - Last Documented: Negative - Endocrine History Hx Diabetes: No - GI History Gastrointestinal History Comment: diverticulitis - Chronic Pain History Chronic Pain: Yes ANE Review of Systems Review of Systems: - Exercise capacity METS (RN): 4 METS ANE Patient History - Allergies Allergies/Adverse Reactions: hydrocodone bitartrate [From Vicodin] Allergy (Severe, Verified 06/30/18 07:24) Vomiting ciprofloxacin Allergy (Unknown, Verified 06/30/18 07:24) Vomiting prochlorperazine Allergy (Unknown, Verified 06/30/18 07:24) parkinsonian-like reaction hydrocodone bitartrate Allergy (Unknown, Uncoded 06/30/18 07:24) Vomiting - Home Medications Home medications: home medication list seen and reviewed Home Medications: SUMAtriptan [Imitrex Nasal [place]] 20 mg NS DAILY PRN 07/18/15 [Last Taken ] oxyCODONE CR [Oxycontin] 20 mg PO BID@04/25/16 [Last Taken 06/30/18] oxyCODONE IR [Oxycodone Ir (*)] 10 mg PO TID PRN 01/06/18 [Last Taken 06/12/18 06:00] Potassium Cl [Klor-Con] 10 - 20 meq PO BID@,18 06/11/18 [Last Taken 06/29/18 18:00 10 meq] Ondansetron Odt [Zofran Odt 4 mg (*)] 4 mg PO Q4HRS PRN 06/12/18 [Last Taken 08/07] Warfarin Sodium [Coumadin 4MG (*)] 4 mg PO DAILY@13 06/30/18 [Last Taken ] - NPO status NPO Since - Liquids (Date): 07/03/18 NPO Since - Liquids (Time): 00:00 NPO Since - Solids (Date): 07/03/18 NPO Since - Solids (Time): 00:00 - Anes Hx Anes Hx: no prior problems - Smoking Hx Smoking Status: Never smoked - Alcohol Use Alcohol Use: None ANE Labs/Vital Signs - Labs Result Diagrams: 07/03/18 23:00 07/03/18 20:30 - Vital Signs Blood Pressure: 93/64 Heart Rate: 127 Respiratory Rate: 22 O2 Sat (%): 100 Height: 162.56 cm Weight: 58.967 kg ANE Physical Exam - Airway Mallampati Score: Class 3 Mouth exam: normal dental/mouth exam - Pulmonary Pulmonary: no respiratory distress, no rales or rhonchi - Cardiovascular Cardiovascular: tachycardia - ASA Status ASA Status: IV, E ANE Anesthesia Plan Anesthesia Plan: general endotracheal anesthesia
[2018-07-03] MEDS ORDERED: PHYTONADIONE 10 MG in NS 50 ML IV ONE (23:40)
[2018-07-03 23:42] LABS: INR 2.13 (0.83-1.16); PROTIME(PATIENT) 23.9 SEC (12.0-15.0)
[2018-07-04] MEDS ORDERED: NALOXONE HCL 0.4 MG/ML INJ IVP PRN ×2 (00:09→08:47)
[2018-07-04] MEDS ORDERED: ONDANSETRON 4 MG/2 ML VIAL IVP PRN (00:09)
[2018-07-04] MEDS ORDERED: DEXAMETHASONE 4 MG/ML VIAL IVP PRN (00:09)
[2018-07-04] MEDS ORDERED: fentaNYL 100 MCG/2 ML INJ IVP PRN (00:09)
[2018-07-04] MEDS ORDERED: SUGAMMADEX SODIUM 200 MG/2 ML VIAL IVP ONE (00:17)
--- NOTE | 2018-07-04 00:32 | POSTOPPROG ---
Post Op Note Date of Operation: 07/04/18 Surgeon: Trevor Gutierrez Rayon Tester: WILLIAM Eden Anesthesiologist: Dr. Fairbanks Anesthesia: GET(General Endotracheal) Pre-op Diagnosis: Post-op bleed Post-op Diagnosis: same Procedure: Ex lap, evacuation of clot Findings: 500cc clot, no distinct bleeding Inf/Abcess present in the surg proc area at time of surgery?: Yes Depth: Organ Space EBL: 500-1000
--- NOTE | 2018-07-04 00:45 | POSTANESTH ---
Post Anesthetic Evaluation Cardiovascular Status: Other, See Comment (Still tachycardic (120) but norepi infusion decreased by half compared to preop, and BP 130/70.) Respiratory Status: Normal, Stable, Similar to Pre-op Cond. Level of Consciousness/Mental Status: Other, See Comment (Awake and talking, but confused--similar to preop.) Pain Control: Adequate, Prn Tx Ordered Nausea/Vomiting Control: Adequate, Prn Tx Ordered Complications Possibly Related to Anesthesia: None Noted (In fair condition, improved over the course of surgery.)
[2018-07-04] MEDS: HYDROmorphONE/DILAUDID 1 MG/ML INJ IVP PRN ×2 (01:27→05:10)
[2018-07-04] MEDS: PIPERACILLIN/TAZO 3.375 GM/DEX 50 ML IV SCH ×5 (02:14→23:09)
[2018-07-04] MEDS: oxyCODONE IR 5 MG TAB PO PRN ×5 (02:20→23:08)
[2018-07-04 05:40] LABS: PLATELET COUNT 177 10^3/uL (150-400)
[2018-07-04 06:30] LABS: INR 1.17 (0.83-1.16); PROTIME(PATIENT) 15.1 SEC (12.0-15.0)
[2018-07-04] MEDS ORDERED: POTASSIUM Cl (KCl) 50 ML IV ONE (08:28)
[2018-07-04] MEDS: ONDANSETRON 4 MG/2 ML VIAL IVP PRN (08:32)
[2018-07-04] MEDS: NS 1,000 ML IV SCH (08:33)
[2018-07-04] MEDS: HYDROmorphONE/DILAUDID 6 MG/30 ML PCA IV PRN (09:59)
--- NOTE | 2018-07-04 10:07 | HOSPPROG ---
Hospitalist Progress Note Assessment/Plan: 73 yo female with diverticulitis admitted with abscess and perforation. On 07/03 she had sigmoidectomy with Gordon's repair of bladder for colovesicular fistula. This was complicated by post operative bleed requiring several units PRBC transfusion and return to the OR that evening. #Post Op Gordon's repair of bladder for colovesicular fistula with subsequent post op bleed -Bleeding has resolved -She appears stable -post op care per surgery: Diet is being advanced. Can stop IVF -As for AC would continue SCD's today. If OK with surgery, would restart AC on . Please see below #Diverticulitis of intestine with abscess and perforation - Will continue Zosyn empirically #Warfarin-induced coagulopathy (Acute), Resolved #Hx of Right Main Pulmonary Artery P.E. and left LE DVT diagnosed on 05/18. -[place] to be unprovoked -would cont AC tomorrow if ok with surgery. I will obtain US of her lower extremity to help decision regarding the need to bridge vs restarting Warfarin w /o bridge. If felt not to be at risk for bleeding, would favor full anticoagulation. #chronic resp failure: her baseline is 2 Liters Hyponatremia (Acute) -resolved Migraines - continue home Triptan Ppx: SCDs Diet: per surgery Code: FULL Subjective: no cp or sob. no further bleeding Objective: Vital Signs Temp Pulse Resp BP Pulse Ox 35.5 C L 108 H 24 H 140/76 H 99 07/04/18 08:00 07/04/18 08:00 07/04/18 08:00 07/04/18 08:00 07/04/18 08:00 Laboratory Results 07/04/18 05:00 07/04/18 05:00 07/03/18 07/04/18 07/05/18 05:59 05:59 05:59 Intake Total 0 8520 Output Total 100 Balance 0 8420 PT 15.1 SEC (12.0-15.0) H 07/04/18 05:00 INR 1.17 (0.83-1.16) H 07/04/18 05:00 - Physical Exam Constitutional: no apparent distress Eyes: PERRL Ears, Nose, Mouth, Throat: moist mucous membranes, hearing normal Cardiovascular: regular rate and rhythym, No edema Respiratory: no respiratory distress, no rales or rhonchi Gastrointestinal: tenderness Skin: warm Neurologic: AAOx3 Psychiatric: interacting appropriately, not anxious, not encephalopathic Lymph, Heme, Immunologic: No petechiae ICD10 Worksheet Patient Problems: Problems Problem Status Onset Dehydration Acute Diverticulitis of intestine with abscess Acute Warfarin-induced coagulopathy Acute Acute diverticulitis Acute Bladder wall thickening Acute Diarrhea Acute Diverticulitis Acute Gastroenteritis and colitis, viral Acute Hypokalemia Acute Hyponatremia Acute Pulmonary embolism Acute Post herpetic neuralgia Chronic
[2018-07-04] MEDS: POLYETHYLENE GLYCOL 3350 17 GM PKT PO SCH (10:15)
--- NOTE | 2018-07-04 11:38 | ASMTCMCOM ---
CM Note CM Note Notes: Patient's INR at 4.3. Patient will need blood, FFP and poss Vit K. Patient may require reoperation if no improvement. Patient unable to work with therapies so far. D/C plan remains TBD. CM will follow. Date Signed: 07/04/2018 11:28 AM Electronically Signed By:Ana Arreola LCSW
--- NOTE | 2018-07-04 13:37 | GCON ---
PULMONARY/CRITICAL CARE CONSULTATION DATE OF CONSULTATION: 07/04/2018 REFERRING PHYSICIAN: Jordan Eller DO REASON FOR REFERRAL: Evaluation and management of pulmonary embolism and anemia. HISTORY OF PRESENT ILLNESS: The patient is a 73-year-old woman with a past medical history of divert iculitis and a colovesicular fistula. She was admitted a few weeks ago for a pelvic abscess. She wa s seen by Dr. Gutierrez and Dr. Warner, who recommended surgery, but the patient left after medical advic e. She was admitted to the hospital 4 days ago with worsening lower abdominal pain along with some a ssociated fevers and chills. A CT scan showed an increase in the size of the perforation/abscess. S he was started on Zosyn and Dr. Gutierrez was reconsulted. He took the patient to the operating room y , where he performed sigmoidectomy with Gordon's pouch and repaired a colovesicular fistula . There was minimal uterine involvement. There was minimal estimated blood loss. However, the afsaneh ent was found to have significant anemia as well as an elevated INR and a fluid collection in the abd omen, so was taken back to the operating room for evacuation of a hematoma. She was also given FFP. 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 She denies shortness of breath. PAST MEDICAL HISTORY: 1. Chronic pain related to post herpetic neuralgia. 2. Diverticulosis. 3. Migraines. MEDICATIONS: At the time of admission include: 1. Imitrex. 2. OxyContin 20 mg twice daily. 3. Oxycodone 10 mg 3 times daily. 4. Potassium. 5. Zofran. 6. Coumadin. ALLERGIES: Hydrocodone, ciprofloxacin, Prochlorazine. SOCIAL HISTORY: The patient has never smoked. 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 FAMILY HISTORY: Positive for DVT/PE. REVIEW OF SYSTEMS: A 10-point review of systems adds nothing to the history of present illness. PHYSICAL EXAMINATION: GENERAL: The patient is awake, alert, in no acute distress lying in bed. VIT AL SIGNS: Blood pressure is 140/76 with a heart rate of 108. She is afebrile. Oxygen saturations a re 99% on 3 L. HEENT: Normocephalic and atraumatic. No icterus. NECK: No JVD. Trachea is midlin e. CHEST: Clear to auscultation. CARDIAC: Regular rate and rhythm without murmur. ABDOMEN: Soft . She has some diffuse tenderness to firm palpation. Bowel sounds are absent. EXTREMITIES: No clu bbing, cyanosis, or edema. NEURO: The patient is awake and alert. She has no gross motor or sensor y deficits. LABORATORY DATA: White blood count is 7.3, similar to admission. She has 12.8% bands, down from 26% . Hemoglobin is 10.1, up from 4.6 after transfusion of 4 units of packed red blood cells. Her plate let count is 177. INR is 1.2, down from 4.3 postoperatively. Lactate is 1.7, down from 6.3. A chest x-ray shows the right diaphragm is elevated. There are no focal infiltrates or pneumothorax. Images reviewed by me. ASSESSMENT: 1. Status post pelvic abscess with colovesicular fistula. This had been repaired yesterday by Dr. Nima singh. The patient is currently on Zosyn. 2. Anemia. The patient had acute blood loss anemia related to a postoperative bleed/hematoma. Her INR was elevated at the time. The elevated INR has been corrected. Her hemoglobin is improved after a transfusion of packed red blood cells, and her hemoglobin remained stable with no further evidence of active bleeding. 3. History of pulmonary embolism. The patient had a deep venous thrombosis and pulmonary embolus in April and is on anticoagulation. This should be resumed as soon as possible. 4. Chronic pain. The patient is currently being managed by patient-controlled analgesia. RECOMMENDATIONS: 1. Follow hemoglobin. 2. Consider starting heparin tomorrow if the patient is hemodynamically stable with no evidence of o ngoing bleeding. In the meantime, SCDs will be used. /[id number]/MODL
--- NOTE | 2018-07-04 19:29 | GOP ---
DATE OF OPERATION: 07/04/2018 SURGEON: Richard Gutierrez MD POUNCER: Deidre Roth, MS-3. ANESTHESIA: General endotracheal anesthesia. ANESTHESIOLOGIST: Dr. Fairbanks. PREOPERATIVE DIAGNOSIS: Postoperative hemorrhage. POSTOPERATIVE DIAGNOSIS: Postoperative hemorrhage. PROCEDURE PERFORMED: Exploratory laparotomy and evacuation of postoperative hemorrhage. FINDINGS: The patient had approximately 500 cc of old blood and clot. No distinct arterial bleed wa s identified. No other lesions were noted. ESTIMATED BLOOD LOSS: A total of 500 cc of old blood. INDICATIONS: This is a 73-year-old female who was status post Gordon procedure and repair of colov esical fistula immediately prior to this operation. The patient had increasing tachycardia and hypot ension. Ultrasound demonstrated a moderate-sized fluid collection, with concern for bleeding. Risks and benefits of the procedure were discussed with the patient's family, their questions were answere d, and they wished to proceed. DESCRIPTION OF PROCEDURE: The patient was placed in the supine position. After induction of adequat e general endotracheal anesthesia, the patient was prepped and draped in the standard surgical fashio n. The skin manuel had been removed prior to prep. The fascial sutures were divided sharply. The abdomen was then entered. On entering, a moderate amount of clot and old blood was identified. This was thoroughly evacuated, both manually and with suction. Approximately 500 cc total was extracted. The area was then thoroughly irrigated and aspirated. Careful examination was then performed to id entify potential bleeding sites. Special attention was given to the uterine site, the bladder repair , and the mesenteric dissections. No distinct bleeding was noted, but small oozing areas were cauter ized for hemostasis. These were located mostly in the area of the rectal mesentery. Once again, the abdomen was thoroughly irrigated with warm saline. Another thorough search was conducted, and no ot her bleeding sites were identified. After watching the area, no significant bleeding was noted; ther efore, the fascia was closed using #1 looped PDS in a running fashion. This was reinforced with 0 Vi cryl internal retention sutures. The skin was thoroughly irrigated and aspirated. The skin was then closed with manuel. The patient was extubated and taken to the ICU in stable condition. /[id number]/MODL
--- NOTE | 2018-07-04 19:50 | GOP ---
DATE OF OPERATION: 07/03/2018 SURGEON: Richard Gutierrez MD TRAFFIC SAFETY ADMINISTRATOR: Deidre Roth MS-3. ANESTHESIA: General endotracheal anesthesia. ANESTHESIOLOGIST: Dr. Duncan. PREOPERATIVE DIAGNOSIS: 1. Severe diverticulitis, with abscess. 2. 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 POSTOPERATIVE DIAGNOSIS: 1. Severe diverticulitis, with abscess. 2. 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 PROCEDURE PERFORMED: 1. Exploratory laparotomy. 2. Gordon procedure. 3. Excision of diverticular abscess. 4. Repair of colovesical fistula. FINDINGS: The patient had a large, well-established abscess, with communication to the bladder. There was no communication to the uterus. No other significant lesions were identified. ESTIMATED BLOOD LOSS: 100 cc. INDICATIONS: This is a 73-year-old female with an established history of diverticular abscess and likely colovesical fistula. Risks and benefits of the procedure have been discussed with the patient and her family, and their questions were answered, and the patient wished to proceed. DESCRIPTION OF PROCEDURE: The patient was placed in the supine position. After the induction of adequate general endotracheal anesthesia, the patient was moved from the modified lithotomy position. A Painter catheter was then carefully placed. The patient was then prepped and draped in the standard surgical fashion. A midline incision was made with a #10 blade and carried down to the subcutaneous tissue with Bovie cautery and blunt dissection. The midline was incised, and the peritoneum was elevated. It was incised sharply, and the abdomen was entered. There was no contamination upon entering. The abscess was seen and palpated in the low pelvis. Initial work was done dividing the white line of Toldt superior to the abscess and the inflamed part of the colon. This mobilized the descending and sigmoid colon. The dissection was then carried down distally, taking care to keep the peritoneal wall intact. The abscess cavity was significantly fibrosed. The wall was extremely thick. The abscess contained stool. This was all completely evacuated. The dissection was then carried out posteriorly to the abscess and carefully peeled off the uterus. No connection with the uterus was identified after careful examination. The thickest of the scar tissue was identified in the right lateral and posterior aspects of the bladder. This was carefully dissected, and a relatively large colovesical fistula was identified. The abscess was carefully peeled off this, leaving a defect in the bladder. Once dissection was completed and the injury was assessed, a phone consultation was placed with Dr. Zacarias of urology. The decision was made to repair the bladder after complete debridement using 3-0 Vicryl in a running double layer. This was completed successfully after ensuring the Painter balloon was intact. A leak test was performed, and no leak was identified. The colon proximal to the abscess was transected with a ROGERS stapler using a blue load. This was approximately 4-5 cm above the inflamed area. Dissection of the mesentery was then completed. The inferior mesenteric vessels were ligated with 2-0 Vicryl ties. Smaller vessels were then cauterized. The mesentery was then completely mobilized to the portion of the rectum that was uninvolved by disease. This appeared to be the mid to proximal rectum. This was also transected with a ROGERS stapler using a blue load after the mesentery had been completely cleared off. The specimen was removed, and the area was thoroughly inspected. Once again, the pelvic sidewalls appeared to be completely intact. Oozing from the abscess bed was cauterized. The area was then thoroughly irrigated with multiple liters of warm saline. The small bowel was run, and no lesions were identified. The stump of the rectum was marked with 2-0 Prolene sutures on either corner of the staple line. The preparation was then made for the ostomy by mobilizing the white line of Toldt further up toward the splenic flexure. It did not require significant mobilization for adequate length. The left upper quadrant site was chosen for the ostomy. An ellipse of skin was excised sharply. Subcutaneous tissues were divided with cautery. Cruciate incisions were made in the anterior and posterior rectus sheaths. The muscle itself was split bluntly. The colon was then delivered through atraumatically. There was more than adequate length, and no twisting was identified. This was anchored to the fascia using 3-0 Vicryl in interrupted fashion. The abdomen was again inspected, and good hemostasis was noted. An omental patch was placed into the area of the bladder repair. The omental tongue was placed between the bladder and the uterus. The omentum had excellent viability and length. It was secured to the pelvic sidewall anteriorly using 3-0 Vicryl sutures. The fascia was then closed using #1 looped PDS in a running fashion. This was reinforced with 0 Vicryl internal retention sutures. The incision was thoroughly irrigated and aspirated. The skin was closed with maneul. The incision was then segregated from the remainder of the procedure. The ostomy was then matured. The staple line was excised sharply, and the remnant was discarded. The ends were inspected for viability, and the ostomy had an excellent blood supply. It was therefore matured using 3-0 Vicryl sutures. Initial bites took serosa, mucosa, the edge of the ostomy, then anchoring the serosa of the more proximal colon to the skin itself. This resulted in an everted ostomy. Further bites were then matured using mucosal serosal bites to the dermis. Once the ostomy was fully matured, its patency was demonstrated on digital exam. It again remained quite viable. Good hemostasis was noted. The ostomy appliance was placed without difficulty. The patient was then returned to the supine position and extubated. She was taken to the PACU in stable condition. COMPLICATIONS: None. DRAINS: Ostomy placement. /[id number]/MODL MTDD
[2018-07-04] MEDS ORDERED: POTASSIUM CL 10 MEQ TAB PO ONE (21:53)
[2018-07-05] MEDS: oxyCODONE IR 5 MG TAB PO PRN ×5 (04:29→21:33)
[2018-07-05] MEDS: PIPERACILLIN/TAZO 3.375 GM/DEX 50 ML IV SCH ×4 (04:29→21:33)
[2018-07-05 05:02] LABS: PLATELET COUNT 185 10^3/uL (150-400)
[2018-07-05 05:08] LABS: INR 1.16 (0.83-1.16)
[2018-07-05] MEDS: HYDROmorphONE/DILAUDID 6 MG/30 ML PCA IV PRN ×2 (07:19→15:39)
[2018-07-05] MEDS: ONDANSETRON DISINTEGRATING 4 MG TAB PO PRN (08:38)
[2018-07-05] MEDS: POLYETHYLENE GLYCOL 3350 17 GM PKT PO SCH (08:38)
--- NOTE | 2018-07-05 09:54 | SOAPPROG ---
SOAP Progress Note Assessment/Plan: Assessment: Stable to improving. Resume anticoagulation, cont to monitor. Discussed catheter issues with urology, may require imaging. Amb with PT/OT, advance diet when appetite returns. D/w patient and family, questions answered. Plan: 07/02/18 09:57 07/03/18 21:05 07/05/18 09:52 Subjective: Patient c/o abd spasms. Denies N/V, anna min clears. OOB to chair only. Per RN patient urinating around catheter but cath flushes easily. 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 Objective: Vital Signs Temp Pulse Resp BP Pulse Ox 36.9 C 109 H 17 151/81 H 97 07/05/18 07:30 07/05/18 07:30 07/05/18 07:30 07/05/18 04:00 07/05/18 07:30 Laboratory Results 07/05/18 04:30 07/05/18 04:30 07/04/18 07/05/18 07/06/18 05:59 05:59 05:59 Intake Total 8520 2940 Output Total 100 75 Balance 8420 2865 PT 15.0 SEC (12.0-15.0) 07/05/18 04:30 INR 1.16 (0.83-1.16) 07/05/18 04:30 Alert, NAD Sl tachy but reg. Abd distended, inc TTP Inc C/D/I Ostomy viable. UOP light pink ICD10 Worksheet Patient Problems: Problems Problem Status Onset Dehydration Acute Diverticulitis of intestine with abscess Acute Warfarin-induced coagulopathy Acute Acute diverticulitis Acute Bladder wall thickening Acute Diarrhea Acute Diverticulitis Acute Gastroenteritis and colitis, viral Acute Hypokalemia Acute Hyponatremia Acute Pulmonary embolism Acute Post herpetic neuralgia Chronic
[2018-07-05] MEDS ORDERED: OXYBUTYNIN CHLORIDE 5 MG TAB PO ONE (10:45)
[2018-07-05] MEDS: ENOXAPARIN 60 MG/0.6 ML SYR SC SCH ×2 (11:04→20:06)
--- NOTE | 2018-07-05 12:39 | PDCONSULT ---
Retail Store Associate Note: RFC leakage around arias Requested by Dr. Mundo Kaur HPI 73F w colovesical fistula 2/2 diverticulitis w abscess, s/p colectomy and repair of bladder by Dr. Gutierrez 2 days ago. INR became supra therapeutic after procedure, and had a postop bleed, and ex lap/hematoma evacuated. Today, arias has not been draining well, she has been leaking around her catheter. Dr. Gutierrez called for urologic eval. Patient in chair, but output from arias very dark and bloody. She has not been leaking around the catheter since starting oxybutynin. No significant bladder pain, just feels like she has to urinate. ROS 10pt ROS performed, as stated in HPI, otherwise neg. PMH diverticulitis PSH Recent blanco for diverticulitis/abscess/colovesical fistual, repair of bladder FH/SH noncontributory PE AFVSS Gen NAD A*O CV regular Lungs Normal effort Abd soft, incision CDI 16F arias w dark bloody output. Arias exchanged using sterile technique w 18F silicone. Old clot manually irrigated out of bladder w 2.5L NS. Irrigant light pink at the end. A/P Clot retention likely 2/2 supra therapeutic INR and recent bladder repair and closure from colovesical fistula. Bladder repair intact as the bladder irrigated well. Irrigate bladder PRN clots/obstruction/drainage of urine AROUND the catheter. Discussed w nursing how to do this. Continue oxybutynin for bladder spasms s/p surgery. I will check on her periodically. I spoke w Dr. Gutierrez regarding the above.
--- NOTE | 2018-07-05 13:43 | HOSPPROG ---
Hospitalist Progress Note Assessment/Plan: 73 yo female with diverticulitis admitted with abscess and perforation. On 07/03 she had sigmoidectomy with Gordon's repair of bladder for colovesicular fistula. This was complicated by post operative bleed requiring several units PRBC transfusion and return to the OR that evening. She has not had further bleeding recurrence #Post Op Gordon's repair of bladder for colovesicular fistula with subsequent post op bleed -Bleeding has resolved -She appears stable -post op care per surgery, diet per surgery #Diverticulitis of intestine with abscess and perforation - Will continue Zosyn empirically #Warfarin-induced coagulopathy (Acute), Resolved #Hx of Right Main Pulmonary Artery P.E. and left LE DVT diagnosed on 05/18. -[place] to be unprovoked -restart Lovenox today per Surgery #Bladder Spasm: cont Oxybutynin #chronic resp failure: her baseline is 2 Liters #Hyponatremia (Acute) -resolved #Migraines - continue home Triptan #Acute on Chronic Pain Syndrome -restart home pain meds -cont with ACID RETORT OPERATOR for now Ppx: SCDs Diet: per surgery Code: FULL Subjective: on ACID RETORT OPERATOR. Still with pain Objective: Vital Signs Temp Pulse Resp BP Pulse Ox 36.9 C 112 H 18 139/89 H 95 07/05/18 07:30 07/05/18 12:00 07/05/18 12:00 07/05/18 12:00 07/05/18 12:00 Laboratory Results 07/05/18 12:50 07/05/18 04:30 07/04/18 07/05/18 07/06/18 05:59 05:59 05:59 Intake Total 8520 2940 Output Total 100 75 Balance 8420 2865 PT 15.0 SEC (12.0-15.0) 07/05/18 04:30 INR 1.16 (0.83-1.16) 07/05/18 04:30 - Physical Exam Constitutional: no apparent distress Eyes: PERRL Ears, Nose, Mouth, Throat: moist mucous membranes, hearing normal Cardiovascular: regular rate and rhythym Respiratory: no respiratory distress, no rales or rhonchi Gastrointestinal: normoactive bowel sounds Skin: warm Musculoskeletal: generalized weakness Neurologic: AAOx3 Psychiatric: interacting appropriately, not anxious, not encephalopathic Lymph, Heme, Immunologic: No petechiae ICD10 Worksheet Patient Problems: Problems Problem Status Onset Dehydration Acute Diverticulitis of intestine with abscess Acute Warfarin-induced coagulopathy Acute Acute diverticulitis Acute Bladder wall thickening Acute Diarrhea Acute Diverticulitis Acute Gastroenteritis and colitis, viral Acute Hypokalemia Acute Hyponatremia Acute Pulmonary embolism Acute Post herpetic neuralgia Chronic
--- NOTE | 2018-07-05 14:07 | PDINTPN ---
Offline Cutter Progress Note Assessment/Plan: Assessment: S/P Laparotomy for sigmoid colectomy and bipin's pouch, abscess drainage and colo-vesicular fistula repair 07/03 * Post op return to OR for hematoma evacuation in the setting of elevated INR. * Painter wasn't functioning, with recurrent clotting. Now patent after evaluation by Urology. Anemia: S/P transfusion 4 PRBCs. Hgb drifted down a bit. Hx PE/DVT April 2018: Just restarted Lovenox. Plan: Continue Lovenox. Follow H/H. Continue Zosyn. Increase activity. Painter to remain in for now per urology. 07/05/18 14:12 Subjective: Feels OK, pain better controlled. Objective: Vital Signs Temp Pulse Resp BP Pulse Ox 36.9 C 112 H 18 139/89 H 95 07/05/18 07:30 07/05/18 12:00 07/05/18 12:00 07/05/18 12:00 07/05/18 12:00 Laboratory Results 07/05/18 12:50 07/05/18 04:30 07/04/18 07/05/18 07/06/18 05:59 05:59 05:59 Intake Total 8520 2940 Output Total 100 75 Balance 8420 2865 PT 15.0 SEC (12.0-15.0) 07/05/18 04:30 INR 1.16 (0.83-1.16) 07/05/18 04:30 Physical Exam - Physical Exam General Appearance: alert, no apparent distress EENT: normal ENT inspection Neck: normal inspection Respiratory: lungs clear, normal breath sounds Cardiac/Chest: normal peripheral pulses, regular rate, rhythm Abdomen: normal bowel sounds, No non-tender Skin: normal color, warm/dry Extremities: normal inspection Neuro/Psych: alert, normal mood/affect ICD10 Worksheet Patient Problems: Problems Problem Status Onset Dehydration Acute Diverticulitis of intestine with abscess Acute Warfarin-induced coagulopathy Acute Acute diverticulitis Acute Bladder wall thickening Acute Diarrhea Acute Diverticulitis Acute Gastroenteritis and colitis, viral Acute Hypokalemia Acute Hyponatremia Acute Pulmonary embolism Acute Post herpetic neuralgia Chronic
[2018-07-05] MEDS: OXYBUTYNIN CHLORIDE 5 MG TAB PO SCH ×2 (15:39→21:39)
[2018-07-05] MEDS ORDERED: WARFARIN SODIUM 5 MG TAB PO ONE (16:15)
[2018-07-05] MEDS ORDERED: POTASSIUM CL 10 MEQ TAB PO ONE (19:14)
[2018-07-05] MEDS ORDERED: LORazepam 0.5 MG TAB PO PRN (21:00)
[2018-07-06] MEDS: oxyCODONE IR 5 MG TAB PO PRN ×2 (01:52→21:43)
[2018-07-06] MEDS: METOPROLOL TARTRATE 5 MG/5 ML INJ IVP PRN ×2 (02:45→06:49)
[2018-07-06] MEDS ORDERED: CALCIUM CARBONATE 500 MG CHEWABLE TAB PO PRN (04:44)
[2018-07-06] MEDS: PIPERACILLIN/TAZO 3.375 GM/DEX 50 ML IV SCH ×4 (04:45→21:09)
[2018-07-06] MEDS: PANTOPRAZOLE SODIUM 40 MG TAB PO SCH ×2 (04:49→09:11)
[2018-07-06] MEDS ORDERED: hydrALAZINE 25 MG TAB PO PRN (06:02)
[2018-07-06] MEDS: ONDANSETRON 4 MG/2 ML VIAL IVP PRN ×3 (06:33→17:43)
[2018-07-06] MEDS ORDERED: POTASSIUM CL 10 MEQ TAB PO ONE (08:27)
[2018-07-06 08:32] LABS: INR 1.32 (0.83-1.16); PROTIME(PATIENT) 16.6 SEC (12.0-15.0)
[2018-07-06] MEDS: OXYBUTYNIN CHLORIDE 5 MG TAB PO SCH ×3 (09:11→21:09)
[2018-07-06] MEDS: POLYETHYLENE GLYCOL 3350 17 GM PKT PO SCH ×2 (09:11→09:20)
[2018-07-06] MEDS: ENOXAPARIN 60 MG/0.6 ML SYR SC SCH (09:11)
[2018-07-06] MEDS: POTASSIUM Cl (KCl) 50 ML IV SCH ×5 (09:44→19:50)
--- NOTE | 2018-07-06 09:45 | SOAPPROG ---
SOAP Progress Note Assessment/Plan: Assessment: Stable to improving. Consider transfusion, though doubt any active bleeding. Once nausea improves plan advance diet, mobilization. D/w patient and family. Plan: 07/02/18 09:57 07/03/18 21:05 07/05/18 09:52 07/06/18 09:43 Subjective: Patient c/o nausea since early AM. Pain markedly improved. Had some oral intake yest, OOB to chair. Objective: Vital Signs Temp Pulse Resp BP Pulse Ox 36.8 C 84 20 170/85 H 98 07/06/18 07:45 07/06/18 07:45 07/06/18 07:45 07/06/18 07:45 07/06/18 07:45 Laboratory Results 07/06/18 04:40 07/06/18 04:40 07/05/18 07/06/18 07/07/18 05:59 05:59 05:59 Intake Total 2940 4961 Output Total 75 1525 Balance 2865 3436 PT 16.6 SEC (12.0-15.0) H 07/06/18 07:50 INR 1.32 (0.83-1.16) H 07/06/18 07:50 Alert, NAD RRR Abd sl distended but soft Inc C/D/I Ostomy viable UOP light pink ICD10 Worksheet Patient Problems: Problems Problem Status Onset Dehydration Acute Diverticulitis of intestine with abscess Acute Warfarin-induced coagulopathy Acute Acute diverticulitis Acute Bladder wall thickening Acute Diarrhea Acute Diverticulitis Acute Gastroenteritis and colitis, viral Acute Hypokalemia Acute Hyponatremia Acute Pulmonary embolism Acute Post herpetic neuralgia Chronic
[2018-07-06] MEDS ORDERED: LABETALOL HCL 100 MG TAB PO ONE (10:25)
--- NOTE | 2018-07-06 11:18 | HOSPPROG ---
Hospitalist Progress Note Assessment/Plan: 73 yo female with diverticulitis admitted with abscess and perforation. On 07/03 she had sigmoidectomy with Gordon's repair of bladder for colovesicular fistula. This was complicated by post operative bleed requiring several units PRBC transfusion and return to the OR that evening. She has not had further bleeding recurrence #Post Op Gordon's repair of bladder for colovesicular fistula with subsequent post op bleed -Bleeding has resolved -She appears stable -post op care per surgery, diet per surgery #Diverticulitis of intestine with abscess and perforation - Will continue Zosyn empirically #Warfarin-induced coagulopathy (Acute), Resolved #Hx of Right Main Pulmonary Artery P.E. and left LE DVT diagnosed on 05/18. 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 Her Hgb has decreased. I dont think she has an active bleed. H/H can be rechecked this afternoon. If she has a further drop, would transfuse another unit PRBC. Her volume status will need to be monitored closely as she is starting to have trace LE edema. She hasnt had much oral intake since last night and for now she will not be given Lasix. cont with BP support as ordered; she does not have a hx of HTN. Subjective: lots of nausea. decreased po intake. no resp sx's. no cp. some trace LE swelling Objective: Vital Signs Temp Pulse Resp BP Pulse Ox 36.8 C 89 17 176/90 H 98 07/06/18 07:45 07/06/18 10:00 07/06/18 10:00 07/06/18 10:00 07/06/18 10:00 Laboratory Results 07/06/18 04:40 07/06/18 04:40 07/05/18 07/06/18 07/07/18 05:59 05:59 05:59 Intake Total 2940 4961 Output Total 75 1525 Balance 2865 3436 PT 16.6 SEC (12.0-15.0) H 07/06/18 07:50 INR 1.32 (0.83-1.16) H 07/06/18 07:50 - Physical Exam Constitutional: no apparent distress Eyes: PERRL Ears, Nose, Mouth, Throat: moist mucous membranes Cardiovascular: regular rate and rhythym, edema (trace LE edema) Respiratory: no respiratory distress Gastrointestinal: normoactive bowel sounds Skin: warm Musculoskeletal: generalized weakness Neurologic: AAOx3 Psychiatric: interacting appropriately, not anxious, not encephalopathic Lymph, Heme, Immunologic: No petechiae ICD10 Worksheet Patient Problems: Problems Problem Status Onset Dehydration Acute Diverticulitis of intestine with abscess Acute Warfarin-induced coagulopathy Acute Acute diverticulitis Acute Bladder wall thickening Acute Diarrhea Acute Diverticulitis Acute Gastroenteritis and colitis, viral Acute Hypokalemia Acute Hyponatremia Acute Pulmonary embolism Acute Post herpetic neuralgia Chronic
[2018-07-06] MEDS: HYDROmorphONE/DILAUDID 6 MG/30 ML PCA IV PRN ×2 (13:16→22:36)
--- NOTE | 2018-07-06 13:29 | SOAPPROG ---
SOAP Progress Note Assessment/Plan: Assessment: Gross hematuria. Urine in arias tubing is CLEAR. Plan: Continue arias for now. Irrigate manually PRN. 07/06/18 13:27 Subjective: Pt nauseated today, requesting no irrigation at this time. Objective: Vital Signs Temp Pulse Resp BP Pulse Ox 36.8 C 89 19 164/87 H 98 07/06/18 07:45 07/06/18 12:00 07/06/18 12:00 07/06/18 12:00 07/06/18 12:00 Laboratory Results 07/06/18 11:40 07/06/18 04:40 07/05/18 07/06/18 07/07/18 05:59 05:59 05:59 Intake Total 2940 4961 Output Total 75 1525 500 Balance 2865 3436 -500 PT 16.6 SEC (12.0-15.0) H 07/06/18 07:50 INR 1.32 (0.83-1.16) H 07/06/18 07:50 Gen NAD, but nauseated CV regular Lungs Normal effort Abd dressing intact arias in place, urine in tubing is clear. ICD10 Worksheet Patient Problems: Problems Problem Status Onset Dehydration Acute Diverticulitis of intestine with abscess Acute Warfarin-induced coagulopathy Acute Acute diverticulitis Acute Bladder wall thickening Acute Diarrhea Acute Diverticulitis Acute Gastroenteritis and colitis, viral Acute Hypokalemia Acute Hyponatremia Acute Pulmonary embolism Acute Post herpetic neuralgia Chronic
[2018-07-06] MEDS: PANTOPRAZOLE SODIUM 40 MG VIAL IVP SCH ×2 (13:46→19:50)
[2018-07-06] MEDS: NS W/ 20 KCl/L 1,000 ML IV SCH (13:46)
--- NOTE | 2018-07-06 14:38 | PDINTPN ---
Poll Watcher Progress Note Assessment/Plan: Assessment: S/P Laparotomy for sigmoid colectomy and bipin's pouch, abscess drainage and colo-vesicular fistula repair 07/03 * Post op return to OR for hematoma evacuation in the setting of elevated INR. * Painter wasn't functioning, with recurrent clotting. Now patent after evaluation by Urology. Anemia: S/P transfusion 4 PRBCs. Hgb has been stable x 30 hours Hx PE/DVT April 2018: Restarted Lovenox 07/05, now on Coumadin as well. Plan: Continue Lovenox. Follow H/H. Continue Zosyn. Increase activity. Painter to remain in for now per urology. 07/06/18 14:37 Subjective: Ponce nauseated, now better after vomiting x 1 and Zofran. Pain fairly well controlled with COIN COLLECTOR. Objective: Vital Signs Temp Pulse Resp BP Pulse Ox 36.8 C 91 12 151/78 H 97 07/06/18 07:45 07/06/18 14:00 07/06/18 14:00 07/06/18 14:00 07/06/18 14:00 Laboratory Results 07/06/18 11:40 07/06/18 04:40 07/05/18 07/06/18 07/07/18 05:59 05:59 05:59 Intake Total 2940 4961 Output Total 75 1525 2150 Balance 2865 3436 -2150 PT 16.6 SEC (12.0-15.0) H 07/06/18 07:50 INR 1.32 (0.83-1.16) H 07/06/18 07:50 Physical Exam - Physical Exam General Appearance: alert, no apparent distress EENT: normal ENT inspection Neck: normal inspection Respiratory: lungs clear Cardiac/Chest: regular rate, rhythm, No edema Abdomen: No normal bowel sounds (decreased), No non-tender (mildly tender) Skin: normal color, warm/dry Extremities: normal inspection Neuro/Psych: alert, normal mood/affect, oriented x 3 ICD10 Worksheet Patient Problems: Problems Problem Status Onset Dehydration Acute Diverticulitis of intestine with abscess Acute Warfarin-induced coagulopathy Acute Acute diverticulitis Acute Bladder wall thickening Acute Diarrhea Acute Diverticulitis Acute Gastroenteritis and colitis, viral Acute Hypokalemia Acute Hyponatremia Acute Pulmonary embolism Acute Post herpetic neuralgia Chronic
[2018-07-06] MEDS: ONDANSETRON DISINTEGRATING 4 MG TAB PO PRN (21:43)
[2018-07-06] MEDS: MELATONIN 3 MG TAB PO PRN (21:44)
[2018-07-07] MEDS: ONDANSETRON DISINTEGRATING 4 MG TAB PO PRN (01:41)
[2018-07-07] MEDS: oxyCODONE IR 5 MG TAB PO PRN ×3 (01:41→19:23)
[2018-07-07] MEDS: PIPERACILLIN/TAZO 3.375 GM/DEX 50 ML IV SCH ×4 (05:02→22:00)
[2018-07-07] MEDS: HYDROmorphONE/DILAUDID 6 MG/30 ML PCA IV PRN ×3 (05:46→20:21)
[2018-07-07] MEDS: NS W/ 20 KCl/L 1,000 ML IV SCH ×2 (05:49→20:21)
[2018-07-07 06:17] LABS: PLATELET COUNT 187 10^3/uL (150-400)
[2018-07-07] MEDS: POTASSIUM Cl (KCl) 50 ML IV SCH ×3 (06:35→09:41)
[2018-07-07] MEDS: OXYBUTYNIN CHLORIDE 5 MG TAB PO SCH ×3 (08:14→20:19)
--- NOTE | 2018-07-07 09:16 | SOAPPROG ---
SOAP Progress Note Assessment/Plan: Assessment: Overall improved. Consider restarting lovenox. Cont clears but may advance as soon as her nausea resolves. Cont abx and follow WBC. Ostomy teaching. Ambulate with PT. D/w patient and family, questions answered. Plan: 07/02/18 09:57 07/03/18 21:05 07/05/18 09:52 07/06/18 09:43 07/07/18 09:13 07/07/18 09:16 Subjective: Patient feels better today, no nausea. Pain improved. Ambulated some yesterday. She did have one bout of coffee ground emesis yesterday, none since. Objective: Vital Signs Temp Pulse Resp BP Pulse Ox 36.8 C 101 H 12 140/73 H 97 07/07/18 08:00 07/07/18 08:00 07/07/18 08:00 07/07/18 08:00 07/07/18 08:00 Laboratory Results 07/07/18 05:00 07/07/18 05:00 07/06/18 07/07/18 07/08/18 05:59 05:59 05:59 Intake Total 4961 2736.5 Output Total 1525 3685 Balance 3436 -948.5 PT 16.6 SEC (12.0-15.0) H 07/06/18 07:50 INR 1.32 (0.83-1.16) H 07/06/18 07:50 Alert, NAD RRR Abd sl distended but soft. Ostomy viable, no OP Painter pink with minimal clots ICD10 Worksheet Patient Problems: Problems Problem Status Onset Dehydration Acute Diverticulitis of intestine with abscess Acute Warfarin-induced coagulopathy Acute Acute diverticulitis Acute Bladder wall thickening Acute Diarrhea Acute Diverticulitis Acute Gastroenteritis and colitis, viral Acute Hypokalemia Acute Hyponatremia Acute Pulmonary embolism Acute Post herpetic neuralgia Chronic
[2018-07-07] MEDS: PANTOPRAZOLE SODIUM 40 MG VIAL IVP SCH ×2 (09:40→20:11)
[2018-07-07] MEDS: POLYETHYLENE GLYCOL 3350 17 GM PKT PO SCH (09:41)
[2018-07-07] MEDS: ENOXAPARIN 40 MG/0.4 ML SYR SC SCH (11:31)
--- NOTE | 2018-07-07 13:05 | PDINTPN ---
Hadoop Administrator Progress Note Assessment/Plan: Assessment: S/P Laparotomy for sigmoid colectomy and bipin's pouch, abscess drainage and colo-vesicular fistula repair 07/03 * Post op return to OR 07/04 for hematoma evacuation and bladder repair in the setting of elevated INR. * Painter wasn't functioning, with recurrent clotting. Status post evaluation by Urology. New catheter in place. Anemia: S/P transfusion 4 PRBCs. Hgb 7 this morning. For 1 more unit of PRBCs. Hx PE/DVT April 2018: Anticoagulation held again yesterday secondary to coffee ground emesis. Will restart prophylactic Lovenox only at this point as she has had no further evidence of bleeding. Hyponatremia: Sodium 131 today. Has had issues with hypokalemia and hyponatremia in the past. On normal saline with potassium. Following. Upper GI bleed: Coffee-ground emesis yesterday. None since. On prophylactic twice daily pantoprazole. Nutrition: None x4 days. Starting to take clear liquids. If unable to take these and ileus persist she may need TPN. Plan: Restart prophylactic Lovenox. Hold Coumadin for now, continue to monitor for bleeding. 1 unit PRBCs today. Follow H/H. Follow oral intake. Placed on clear liquids today per surgery. Continue Zosyn. Increase activity as tolerated. Painter to remain in for now per urology. Follow laboratory in a.m.. 40 min of critical care time spent directly with the patient. Discussed with nursing, surgery, hospitalist, and the ICU multi disciplinary team. Subjective: Doing okay. Feels better overall. Still has some abdominal pain as expected, some distension. Says breathing is okay. Objective: Vital Signs Temp Pulse Resp BP Pulse Ox 36.8 C 103 H 16 162/73 H 96 07/07/18 08:00 07/07/18 10:00 07/07/18 10:00 07/07/18 10:00 07/07/18 10:00 Microbiology 07/05/18 12:45 Urine Culture - Final Urine,Clean Catch Laboratory Results 07/07/18 05:00 07/07/18 05:00 07/06/18 07/07/18 07/08/18 05:59 05:59 05:59 Intake Total 4961 2736.5 Output Total 1525 3685 Balance 3436 -948.5 PT 16.6 SEC (12.0-15.0) H 07/06/18 07:50 INR 1.32 (0.83-1.16) H 07/06/18 07:50 Physical Exam - Physical Exam General Appearance: alert, no apparent distress EENT: PERRL/EOMI, other (Nasal cannula at 2 L.) Neck: normal inspection (No JVD) Respiratory: lungs clear (Anteriorly), decreased breath sounds (At bases), No rales, No rhonchi Cardiac/Chest: regular rate, rhythm, tachycardia (Sinus) Abdomen: distended, other (No stool or air in the colostomy bag currently), No normal bowel sounds (Decreased), No non-tender Pelvic Exam: other (Painter catheter in place. Good urine output. Output greater than input last 24 hr) Skin: warm/dry, pallor Extremities: No pedal edema Neuro/Psych: no motor/sensory deficits, No cognition abnormalities ICD10 Worksheet Patient Problems: Problems Problem Status Onset Gastroenteritis and colitis, viral Acute Post herpetic neuralgia Chronic Diverticulitis Acute Diarrhea Acute Acute diverticulitis Acute Bladder wall thickening Acute Pulmonary embolism Acute Hypokalemia Acute Hyponatremia Acute Diverticulitis of intestine with abscess Acute Warfarin-induced coagulopathy Acute Dehydration Acute
--- NOTE | 2018-07-07 15:47 | HOSPPROG ---
Hospitalist Progress Note Assessment/Plan: 73 yo female with diverticulitis admitted with abscess and perforation. On 07/03 she had sigmoidectomy with Gordon's repair of bladder for colovesicular fistula. This was complicated by post operative bleed requiring several units PRBC transfusion and return to the OR that evening. She has not had further bleeding recurrence Post Op day 4 from sigmoidectomy w ostomy, resection of colovesicular fistula postop bleed bowel function yet to return Diverticulitis of intestine with abscess and perforation Will continue Zosyn empirically today is day 7 rising white count noted hematemesis: resolved tranasfused 1 unit to day scope if recurs Warfarin-induced coagulopathy (Acute), Resolved Hx of Right Main Pulmonary Artery P.E. and left LE DVT diagnosed on 05/18. 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 white count increasing Objective: Vital Signs Temp Pulse Resp BP Pulse Ox 36.6 C 99 20 151/87 H 98 07/07/18 15:36 07/07/18 15:36 07/07/18 15:36 07/07/18 15:36 07/07/18 15:36 Microbiology 07/05/18 12:45 Urine Culture - Final Urine,Clean Catch Laboratory Results 07/07/18 05:00 07/07/18 05:00 07/06/18 07/07/18 07/08/18 05:59 05:59 05:59 Intake Total 4961 2736.5 680 Output Total 1525 3685 Balance 3436 -948.5 680 PT 16.6 SEC (12.0-15.0) H 07/06/18 07:50 INR 1.32 (0.83-1.16) H 07/06/18 07:50 - Physical Exam Constitutional: no apparent distress, appears nourished Eyes: PERRL, anicteric sclera Ears, Nose, Mouth, Throat: moist mucous membranes, hearing normal Cardiovascular: regular rate and rhythym, no murmur, rub, or gallop Respiratory: no respiratory distress, no rales or rhonchi Gastrointestinal: other (distended w nearly absent bowel sounds. stoma pink no output) Genitourinary: no bladder fullness, arias in urethra, other (pink urine) Skin: warm Musculoskeletal: full muscle strength Neurologic: AAOx3 Psychiatric: interacting appropriately Lymph, Heme, Immunologic: no cervical LAD ICD10 Worksheet Patient Problems: Problems Problem Status Onset Dehydration Acute Diverticulitis of intestine with abscess Acute Warfarin-induced coagulopathy Acute Acute diverticulitis Acute Bladder wall thickening Acute Diarrhea Acute Diverticulitis Acute Gastroenteritis and colitis, viral Acute Hypokalemia Acute Hyponatremia Acute Pulmonary embolism Acute Post herpetic neuralgia Chronic
--- NOTE | 2018-07-07 16:49 | ASMTCMCOM ---
CM Note CM Note Notes: PT/OT recommending SNF rehab. Spoke with patient who would rather return home with HC. She has a friend Misty [phone], who lives with her but not that interested in taking care of patient. Wound care/medical policy specialist and NUCLEAR DESIGN ENGINEER bot feel that with all the surgeries, it would be beneficial for patient to go to a SNF. Date Signed: 07/07/2018 04:49 PM Electronically Signed By:Nelia Groves LCSW
--- NOTE | 2018-07-07 17:05 | WOCRNPDOC ---
WOCRN Advanced Assessment Note - Colostomy Assessment, Advanced Left Colostomy Stoma Colostomy Appliance Intact: Yes Colostomy Appliance Currently in Use: Two Piece Flat, 2 1/4, Cut to Fit Stoma Color: Red Stoma Turgor: Moist, Shiny Stoma Shape: Round Stoma Height: Protruding Mucocutaneus Junction: Intact Colostomy Effluent: Serosangenous Peristomal Skin: Intact Colostomy Comment/Treatment Details: Eudcation day 1 and 2 teaching provided. Patient stated she had some experience with colostomies, since her father had one, but had never changed one. Education provided re: frequency of changing appliance, frequency of emptying and changing pouch, complications with changing appliance around surgical incision, troubleshooting, different types of appliances, and outpatient resources. Patient was 5% hands on, practicing rolling up pouch for emptying. Patient had no other hands on participation, and did not ask questions. Patient struggled to stay on topic during change and education, and will need follow up education and reinforcement. During change, patient had visit from CM to discuss outpatient options. Patient was unable to focus on ostomy education after CM left and pushed AIR TRAFFIC COORDINATOR pump button, ending education opportunity for the day. Patient asked for RN Donna to return to room to fix medication pump. Patient agreed to help with appliance change with guest service host. Wound care will round again later this week.
[2018-07-07] MEDS: ACETAMINOPHEN 325 MG TAB PO PRN (19:23)
[2018-07-08] MEDS: oxyCODONE IR 5 MG TAB PO PRN ×3 (02:23→13:32)
[2018-07-08] MEDS: MELATONIN 3 MG TAB PO PRN ×2 (02:23→21:03)
[2018-07-08] MEDS: ACETAMINOPHEN 325 MG TAB PO PRN ×2 (02:23→21:03)
[2018-07-08] MEDS: PIPERACILLIN/TAZO 3.375 GM/DEX 50 ML IV SCH ×4 (04:43→21:04)
[2018-07-08] MEDS: HYDROmorphONE/DILAUDID 6 MG/30 ML PCA IV PRN ×2 (06:25→19:54)
[2018-07-08] MEDS: ENOXAPARIN 40 MG/0.4 ML SYR SC SCH (09:05)
[2018-07-08] MEDS: PANTOPRAZOLE SODIUM 40 MG VIAL IVP SCH ×2 (09:05→21:00)
[2018-07-08] MEDS: POLYETHYLENE GLYCOL 3350 17 GM PKT PO SCH (09:05)
[2018-07-08] MEDS: OXYBUTYNIN CHLORIDE 5 MG TAB PO SCH ×3 (09:06→21:04)
--- NOTE | 2018-07-08 09:43 | PDINTPN ---
Occupational Health Nursing Director Progress Note Assessment/Plan: Assessment: S/P Laparotomy for sigmoid colectomy and Gordon's pouch, abscess drainage and colo-vesicular fistula repair 07/03 * Post op return to OR 07/04 for hematoma evacuation and bladder repair in the setting of elevated INR. * Painter wasn't functioning, with recurrent clotting. Status post evaluation by Urology. New catheter in place. * Persistent ileus: Bowel sounds clearly improved. Colostomy however with little output. Anemia: S/P transfusion 4 PRBCs initially, 1 yesterday. Hgb 8 this morning. Following. Hx PE/DVT April 2018: Anticoagulation intermittently held secondary to bleeding. Last event 91 with coffee ground emesis, none since. On prophylactic Lovenox only at this point. Re-evaluating daily. Hyponatremia: Sodium 131 yesterday. Has had issues with hypokalemia and hyponatremia in the past. On normal saline with potassium. Lab pending Upper GI bleed: Coffee-ground emesis 07/06. None since. On prophylactic twice daily pantoprazole. Nutrition: None x 5 days. Starting to take clear liquids. Still with ileus. Pain control: Appears adequate but she remains on her TIRE SPOTTER and is using this every 15 min. Also on oral long-acting and immediate release OxyContin/ oxycodone. She does have a history chronic pain secondary to post herpetic neuralgia related to the left upper abdomen and has been on chronic narcotics at home, high tolerance. Plan: Continue prophylactic Lovenox. Hold Coumadin for now, continue to monitor for bleeding. Possibly re-start tomorrow. Follow lab, H/H. Follow oral intake. Increase clear liquids as tolerated. Continue Zosyn. Increase Oxy CR to TID, encouraging patient to use less TIRE SPOTTER, rely more on orals. Increase activity as tolerated. Painter to remain in for now per urology. . 30 min of critical care time spent directly with the patient. Discussed with nursing, surgery, hospitalist, and the ICU multi disciplinary team. Subjective: Feels better. Up in the chair. Has left upper abdominal pain. Remains distended. Taking clear liquids, no vomiting. Objective: Vital Signs Temp Pulse Resp BP Pulse Ox 36.7 C 101 H 21 H 164/82 H 96 07/08/18 08:00 07/08/18 08:00 07/08/18 08:00 07/08/18 08:00 07/08/18 08:00 Microbiology 07/05/18 12:45 Urine Culture - Final Urine,Clean Catch Laboratory Results 07/08/18 04:50 07/08/18 04:50 07/07/18 07/08/18 07/09/18 05:59 05:59 05:59 Intake Total 2736.5 3609.2 Output Total 3685 3450 350 Balance -948.5 159.2 -350 PT 16.6 SEC (12.0-15.0) H 07/06/18 07:50 INR 1.32 (0.83-1.16) H 07/06/18 07:50 Physical Exam - Physical Exam General Appearance: alert, no apparent distress EENT: PERRL/EOMI, other (Nasal cannula in place at 2 L) Neck: normal inspection (No JVD) Respiratory: lungs clear, decreased breath sounds (At bases) Cardiac/Chest: tachycardia (Sinus tachycardia, low 100s), No gallop Abdomen: normal bowel sounds (Bowel sounds active today), distended, other ( Colostomy in place, no significant stool or air yet in this), No non-tender ( Tender, some rebound referable to the left upper quadrant), No soft Pelvic Exam: other (Painter catheter in place, good urine output) Skin: warm/dry, pallor Extremities: No pedal edema Neuro/Psych: no motor/sensory deficits, No cognition abnormalities ICD10 Worksheet Patient Problems: Problems Problem Status Onset Gastroenteritis and colitis, viral Acute Post herpetic neuralgia Chronic Diverticulitis Acute Diarrhea Acute Acute diverticulitis Acute Bladder wall thickening Acute Pulmonary embolism Acute Hypokalemia Acute Hyponatremia Acute Diverticulitis of intestine with abscess Acute Warfarin-induced coagulopathy Acute Dehydration Acute
[2018-07-08] MEDS ORDERED: POTASSIUM CL 10 MEQ TAB PO ONE (10:01)
--- NOTE | 2018-07-08 10:34 | SOAPPROG ---
SOAP Progress Note Assessment/Plan: Assessment: Improving. Plan advance diet, ambulate. SDU status. Patient allergic to toradol, gabapentin, will cont SUPERVISOR COOLER SERVICE for now. Plan: 07/02/18 09:57 07/03/18 21:05 07/05/18 09:52 07/06/18 09:43 07/07/18 09:13 07/07/18 09:16 07/08/18 10:31 Subjective: Patient feels better, pain controlled, no N/V. Luda po. Objective: Vital Signs Temp Pulse Resp BP Pulse Ox 36.7 C 104 H 21 H 140/71 H 98 07/08/18 08:00 07/08/18 10:00 07/08/18 10:00 07/08/18 10:00 07/08/18 10:00 Microbiology 07/05/18 12:45 Urine Culture - Final Urine,Clean Catch Laboratory Results 07/08/18 04:50 07/08/18 04:50 07/07/18 07/08/18 07/09/18 05:59 05:59 05:59 Intake Total 2736.5 3609.2 Output Total 3685 3450 350 Balance -948.5 159.2 -350 PT 16.6 SEC (12.0-15.0) H 07/06/18 07:50 INR 1.32 (0.83-1.16) H 07/06/18 07:50 Alert, NAD RRR Abd soft, NTTP Inc C/D/I Ostomy viable UOP philosophy and religion instructor ICD10 Worksheet Patient Problems: Problems Problem Status Onset Dehydration Acute Diverticulitis of intestine with abscess Acute Warfarin-induced coagulopathy Acute Acute diverticulitis Acute Bladder wall thickening Acute Diarrhea Acute Diverticulitis Acute Gastroenteritis and colitis, viral Acute Hypokalemia Acute Hyponatremia Acute Pulmonary embolism Acute Post herpetic neuralgia Chronic
[2018-07-08] MEDS: NS W/ 20 KCl/L 1,000 ML IV SCH (11:17)
[2018-07-08 11:27] LABS: INR 1.57 (0.83-1.16); PROTIME(PATIENT) 18.9 SEC (12.0-15.0)
--- NOTE | 2018-07-08 15:01 | ASMTCMCOM ---
CM Note CM Note Notes: Met with Misty, patient's roommate, in a "Family Meeting". Misty is very supportive of patient returning home. She reported that she didn't think they were as prepared as they could have been after her last hospitalization. They had HC and would like them to assist on discharge with RN/PT/OT. Misty plans on getting a bed for the 1st level and hiring non-medical care. [facility] has been notified. Date Signed: 07/08/2018 03:00 PM Electronically Signed By:Nelia Groves LCSW
--- NOTE | 2018-07-08 15:45 | HOSPPROG ---
Hospitalist Progress Note Assessment/Plan: 73 yo female with diverticulitis admitted with abscess and perforation. On 07/03 she had sigmoidectomy with Gordon's repair of bladder for colovesicular fistula. This was complicated by post operative bleed requiring several units PRBC transfusion and return to the OR that evening. She has not had further bleeding recurrence Post Op day 5 from sigmoidectomy w ostomy, resection of colovesicular fistula postop bleed bowel function yet to return, yet tolerating light orals Diverticulitis of intestine with abscess and perforation Will continue Zosyn empirically today is day 8 rising white count noted hematemesis: resolved tranasfused 1 unit scope if recurs bid IV ppi Warfarin-induced coagulopathy (Acute), Resolved Hx of Right Main Pulmonary Artery P.E. and left LE DVT diagnosed on 05/18. 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 urine a bit darker today than yesterday. eating a bit Objective: Vital Signs Temp Pulse Resp BP Pulse Ox 36.6 C 98 13 150/85 H 98 07/08/18 15:33 07/08/18 15:33 07/08/18 15:33 07/08/18 15:33 07/08/18 15:33 Microbiology 07/05/18 12:45 Urine Culture - Final Urine,Clean Catch Laboratory Results 07/08/18 15:26 07/08/18 10:55 07/07/18 07/08/18 07/09/18 05:59 05:59 05:59 Intake Total 2736.5 3609.2 Output Total 3685 3450 675 Balance -948.5 159.2 -675 PT 18.9 SEC (12.0-15.0) H 07/08/18 10:55 INR 1.57 (0.83-1.16) H 07/08/18 10:55 - Physical Exam Constitutional: no apparent distress, appears nourished Eyes: PERRL, anicteric sclera Ears, Nose, Mouth, Throat: moist mucous membranes, hearing normal Cardiovascular: regular rate and rhythym, no murmur, rub, or gallop Respiratory: no respiratory distress, no rales or rhonchi Gastrointestinal: normoactive bowel sounds, soft, non-tender abdomen Genitourinary: no bladder fullness, arias in urethra, other (dark red urine) Skin: warm, normal color Musculoskeletal: full muscle strength Neurologic: AAOx3 Psychiatric: interacting appropriately Lymph, Heme, Immunologic: no cervical LAD ICD10 Worksheet Patient Problems: Problems Problem Status Onset Dehydration Acute Diverticulitis of intestine with abscess Acute Warfarin-induced coagulopathy Acute Acute diverticulitis Acute Bladder wall thickening Acute Diarrhea Acute Diverticulitis Acute Gastroenteritis and colitis, viral Acute Hypokalemia Acute Hyponatremia Acute Pulmonary embolism Acute Post herpetic neuralgia Chronic
[2018-07-08] MEDS ORDERED: POTASSIUM CL 20 MEQ/15 ML UDCUP PO ONE (20:00)
[2018-07-09] MEDS: oxyCODONE IR 5 MG TAB PO PRN ×4 (00:10→18:44)
[2018-07-09] MEDS: ACETAMINOPHEN 325 MG TAB PO PRN ×2 (04:44→12:14)
[2018-07-09] MEDS: PIPERACILLIN/TAZO 3.375 GM/DEX 50 ML IV SCH ×4 (04:44→21:46)
[2018-07-09 05:23] LABS: PLATELET COUNT 247 10^3/uL (150-400)
[2018-07-09 05:28] LABS: INR 1.67 (0.83-1.16); PROTIME(PATIENT) 19.8 SEC (12.0-15.0)
[2018-07-09] MEDS: HYDROmorphONE/DILAUDID 6 MG/30 ML PCA IV PRN (07:04)
[2018-07-09] MEDS: ENOXAPARIN 40 MG/0.4 ML SYR SC SCH (08:03)
[2018-07-09] MEDS: POLYETHYLENE GLYCOL 3350 17 GM PKT PO SCH (08:03)
[2018-07-09] MEDS: PANTOPRAZOLE SODIUM 40 MG VIAL IVP SCH (08:03)
[2018-07-09] MEDS: OXYBUTYNIN CHLORIDE 5 MG TAB PO SCH ×3 (08:04→21:47)
[2018-07-09] MEDS ORDERED: POTASSIUM CL 20 MEQ TAB PO ONE (08:20)
[2018-07-09] MEDS ORDERED: PROTOCOL MAGNESIUM 1 DOSE IV PRN (08:51)
--- NOTE | 2018-07-09 09:52 | SOAPPROG ---
SOAP Progress Note Assessment/Plan: Assessment: Improving. Cont anticoagulation, ambulation, diet. Plan: 07/02/18 09:57 07/03/18 21:05 07/05/18 09:52 07/06/18 09:43 07/07/18 09:13 07/07/18 09:16 07/08/18 10:31 07/09/18 09:49 Subjective: Patient feels better, pain controlled, no N/V. Luda po, ambulating. Objective: Vital Signs Temp Pulse Resp BP Pulse Ox 36.9 C 104 H 16 159/83 H 100 07/09/18 07:44 07/09/18 07:44 07/09/18 07:44 07/09/18 08:00 07/09/18 07:44 Laboratory Results 07/09/18 05:00 07/09/18 05:00 07/08/18 07/09/18 07/10/18 05:59 05:59 05:59 Intake Total 3609.2 2593.1 Output Total 3450 2050 550 Balance 159.2 543.1 -550 PT 19.8 SEC (12.0-15.0) H 07/09/18 05:00 INR 1.67 (0.83-1.16) H 07/09/18 05:00 Alert, NAD RRR Abd slightly distended, inc TTP Inc C/D/I Ostomy viable, no OP. Painter unchanged. ICD10 Worksheet Patient Problems: Problems Problem Status Onset Dehydration Acute Diverticulitis of intestine with abscess Acute Warfarin-induced coagulopathy Acute Acute diverticulitis Acute Bladder wall thickening Acute Diarrhea Acute Diverticulitis Acute Gastroenteritis and colitis, viral Acute Hypokalemia Acute Hyponatremia Acute Pulmonary embolism Acute Post herpetic neuralgia Chronic
[2018-07-09] MEDS: ONDANSETRON DISINTEGRATING 4 MG TAB PO PRN (10:01)
[2018-07-09] MEDS: LIDOCAINE 4%/MENTHOL 1% PATCH TD SCH (11:11)
--- NOTE | 2018-07-09 12:05 | HOSPPROG ---
Hospitalist Progress Note Assessment/Plan: 73 yo female with diverticulitis admitted with abscess and perforation. On 07/03 she had sigmoidectomy with Gordon's repair of bladder for colovesicular fistula. This was complicated by post operative bleed requiring several units PRBC transfusion and return to the OR that evening. She has not had further bleeding recurrence Post Op day 6 from sigmoidectomy w ostomy, resection of colovesicular fistula postop bleed bowel function yet to return, yet tolerating light orals Diverticulitis of intestine with abscess and perforation Will continue Zosyn for now today is day 9 Leukocytosis is noted hematemesis: resolved s/p transfusions scope if recurs bid IV ppi Warfarin-induced coagulopathy (Acute), Resolved Hx of Right Main Pulmonary Artery P.E. and left LE DVT diagnosed on 05/18. Ok to restart Warfarin today Lovenox at proph doses for now Bladder Spasm: cont Oxybutynin Painter chronic resp failure: her baseline is 2 Liters Hyponatremia: Monitor for now. Na is 131. Migraines continue home Triptan Acute on Chronic Pain Syndrome increase long acting pain meds cont with ONCOLOGY PHYSICIAN for now- transition to po pain mds when reliably taking po She is allergic to several medications or not open to trying some Will try a Lidocaine Patch will also provided small amount of Benzo's per below Anxiety She refuse an SSRI will try small amount of Ativan which could maybe help with her pain mgmt as well ABLA Hgb has trended down 07/08: hct stable HTN: Nausea: antiemetics Hypomagnesemia: replace Mg today Ppx: SCDs Diet: regular, per Surgery Code: FULL Likely OK to transfer to med surg is ok with surgery Subjective: no cp or SOBs. Still with difficult to control pain, still on ONCOLOGY PHYSICIAN. Objective: Vital Signs Temp Pulse Resp BP Pulse Ox 36.9 C 104 H 16 159/83 H 100 07/09/18 07:44 07/09/18 07:44 07/09/18 07:44 07/09/18 08:00 07/09/18 07:44 Laboratory Results 07/09/18 05:00 07/09/18 05:00 07/08/18 07/09/18 07/10/18 05:59 05:59 05:59 Intake Total 3609.2 2593.1 Output Total 3450 2050 550 Balance 159.2 543.1 -550 PT 19.8 SEC (12.0-15.0) H 07/09/18 05:00 INR 1.67 (0.83-1.16) H 07/09/18 05:00 - Physical Exam Constitutional: no apparent distress Eyes: PERRL, EOMI Ears, Nose, Mouth, Throat: moist mucous membranes, hearing normal Cardiovascular: regular rate and rhythym, No edema Respiratory: no respiratory distress, no rales or rhonchi, clear to auscultation Gastrointestinal: normoactive bowel sounds, soft, non-tender abdomen Skin: warm Neurologic: AAOx3 Psychiatric: interacting appropriately, not anxious, not encephalopathic Lymph, Heme, Immunologic: No petechiae ICD10 Worksheet Patient Problems: Problems Problem Status Onset Dehydration Acute Diverticulitis of intestine with abscess Acute Warfarin-induced coagulopathy Acute Acute diverticulitis Acute Bladder wall thickening Acute Diarrhea Acute Diverticulitis Acute Gastroenteritis and colitis, viral Acute Hypokalemia Acute Hyponatremia Acute Pulmonary embolism Acute Post herpetic neuralgia Chronic
--- NOTE | 2018-07-09 14:06 | PDINTPN ---
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 * Painter wasn't functioning, with recurrent clotting. Status post evaluation by Urology. New catheter in place. * Persistent ileus: Bowel sounds active an she is eating. Colostomy however with little output. Anemia: S/P transfusion 4 PRBCs initially, 1 subsequently. Hgb 8 stable at 8 without evidence of significant ongoing active bleeding. Following. Hx PE/DVT April 2018: Anticoagulation intermittently held secondary to bleeding. Last event with coffee ground emesis, none since. On prophylactic Lovenox only at this point. Re-evaluating daily. Hyponatremia: Sodium 131. Has had issues with hypokalemia and hyponatremia in the past. On normal saline with potassium. Lab pending Upper GI bleed: Coffee-ground emesis 07/06. None since. On prophylactic twice daily pantoprazole. Nutrition: Diet advanced after being on clear liquids for a few days. Still with ileus however and no output into colostomy. Pain control: Appears adequate but she remains on [employer] although she is using this less. Also on oral long-acting and immediate release OxyContin/oxycodone. She does have a history chronic pain secondary to post herpetic neuralgia related to the left upper abdomen and has been on chronic narcotics at home, and has a high tolerance. Plan: Continue prophylactic Lovenox. Restart Coumadin today at 2.5 mg. Follow PT/INR. Follow lab, H/H. Follow oral intake. Increase clear liquids as tolerated. Continue Zosyn times 14 days total. Continue Oxy CR to TID, wean [employer], rely more on orals. Increase activity as tolerated. Painter to remain in for now per urology. 30 min of critical care time spent directly with the patient. Discussed with nursing, surgery, hospitalist, and the ICU multi disciplinary team. Subjective: Still with lower abdominal discomfort and left upper quadrant area pain which may be related to previous shingles/post herpetic neuralgia. Starting to eat. Still using [employer], but less Objective: Vital Signs Temp Pulse Resp BP Pulse Ox 36.8 C 108 H 16 163/73 H 99 07/09/18 12:00 07/09/18 12:00 07/09/18 12:00 07/09/18 12:00 07/09/18 12:00 Laboratory Results 07/09/18 12:25 07/09/18 05:00 07/08/18 07/09/18 07/10/18 05:59 05:59 05:59 Intake Total 3609.2 2593.1 Output Total 3450 2050 850 Balance 159.2 543.1 -850 PT 19.8 SEC (12.0-15.0) H 07/09/18 05:00 INR 1.67 (0.83-1.16) H 07/09/18 05:00 Laboratory Tests 07/09/18 07/09/18 05:00 05:00 PT 19.8 H INR 1.67 H APTT 40.2 H Calcium 7.6 L Magnesium 1.2 L Physical Exam - Physical Exam General Appearance: alert, no apparent distress, other (Up in chair) EENT: PERRL/EOMI, other (Nasal cannula oxygen in place at 2 L: 100% sats) Neck: normal inspection (No JVD) Respiratory: lungs clear (Anteriorly), decreased breath sounds (At bases), No rales, No rhonchi Cardiac/Chest: tachycardia (Sinus.), No gallop Abdomen: normal bowel sounds (Active bowel sounds), distended, other (No stool or air in colostomy), No non-tender (Less tenderness) Pelvic Exam: other (Painter catheter in place. Good urine output. Remains somewhat bloody, with some older looking clots.) Skin: warm/dry, pallor Extremities: No pedal edema Neuro/Psych: no motor/sensory deficits, No cognition abnormalities ICD10 Worksheet Patient Problems: Problems Problem Status Onset Gastroenteritis and colitis, viral Acute Post herpetic neuralgia Chronic Diverticulitis Acute Diarrhea Acute Acute diverticulitis Acute Bladder wall thickening Acute Pulmonary embolism Acute Hypokalemia Acute Hyponatremia Acute Diverticulitis of intestine with abscess Acute Warfarin-induced coagulopathy Acute Dehydration Acute
--- NOTE | 2018-07-09 15:22 | ASMTCMCOM ---
CM Note CM Note Notes: Jocelynn Hdez to meet with patient and roommate, Misty 11:00AM. Referral sent. Date Signed: 07/09/2018 03:21 PM Electronically Signed By:Nelia Groves LCSW
[2018-07-09] MEDS: WARFARIN SODIUM 2.5 MG TAB PO SCH (15:56)
[2018-07-09] MEDS ORDERED: WARFARIN SODIUM 3 MG TAB PO SCH ×2 (16:00)
[2018-07-09] MEDS: NS W/ 20 KCl/L 1,000 ML IV SCH (16:08)
[2018-07-09] MEDS ORDERED: MAGNESIUM SULF 2 GM/WATER 50 ML IV ONE (16:28)
[2018-07-09] MEDS ORDERED: POTASSIUM CL 10 MEQ TAB PO ONE (21:46)
[2018-07-09] MEDS: PANTOPRAZOLE SODIUM 40 MG TAB PO SCH (21:47)
[2018-07-09] MEDS: PATCH REMOVAL 1 EA PATCH TD SCH (21:50)
[2018-07-10] MEDS: HYDROmorphONE/DILAUDID 6 MG/30 ML PCA IV PRN (01:27)
[2018-07-10] MEDS: oxyCODONE IR 5 MG TAB PO PRN ×4 (02:29→21:42)
[2018-07-10] MEDS: PIPERACILLIN/TAZO 3.375 GM/DEX 50 ML IV SCH ×4 (04:15→21:41)
[2018-07-10 04:38] LABS: PLATELET COUNT 265 10^3/uL (150-400)
[2018-07-10 04:46] LABS: INR 1.89 (0.83-1.16); PROTIME(PATIENT) 21.8 SEC (12.0-15.0)
[2018-07-10] MEDS ORDERED: POTASSIUM CL 10 MEQ TAB PO ONE ×2 (08:09→20:02)
[2018-07-10] MEDS: POLYETHYLENE GLYCOL 3350 17 GM PKT PO SCH (08:54)
[2018-07-10] MEDS: PANTOPRAZOLE SODIUM 40 MG TAB PO SCH ×2 (08:55→19:46)
[2018-07-10] MEDS: ENOXAPARIN 40 MG/0.4 ML SYR SC SCH (08:55)
[2018-07-10] MEDS: OXYBUTYNIN CHLORIDE 5 MG TAB PO SCH ×3 (08:55→21:42)
[2018-07-10] MEDS: LIDOCAINE 4%/MENTHOL 1% PATCH TD SCH (08:56)
[2018-07-10] MEDS ORDERED: MAGNESIUM SULF 1 GM/DEXTROSE 100 ML IV ONE (09:00)
--- NOTE | 2018-07-10 11:11 | WOCRNPDOC ---
[facility] Advanced Assessment Note - Colostomy Assessment, Advanced Left Colostomy Stoma Colostomy Appliance Intact: Yes Colostomy Appliance Currently in Use: Two Piece Flat, 2 3/4, Cut to Fit Stoma Color: [place] Stoma Turgor: Moist, Shiny Stoma Shape: Round Stoma Height: Protruding Colostomy Details: Gordon's Pouch Colostomy Comment/Treatment Details: Did pouch change demonstration with patient and roommate on the stoma model today. Patient reports not having retained much from previous teaching on Saturday. However today she was attentive , and seemed to understand the teaching. Pouch change method, frequency, template creation, stoma changes, showering and all other ADL's reviewed. Pouch emptying also reviewed. Patient had again had not done any reading of the educational materials she had been given last week, despite having been asked multiple times since saturday of last week to begin reading. It was explained that the reading materials will help her understand and prompt her to ask appropriate questions about her ostomy and it's care. breeding technician was clear that if patient failed to read the materials that the university tutor would not keep rounding. She was also assigned to begin emptying her pouch each time it needs emtpying. FIRE ALARM INSTALLER and RN aware of this. Patient also agreed that she will perform the pouch change tomorrow on herself with university tutor support. Patient agreed to secure start for convatec, coloplast and steven and all 3 will be initated today. New ostomy patient order with Dina for two piece steven appliance with cerra plus also initated today. All questions answered.
--- NOTE | 2018-07-10 11:40 | SOAPPROG ---
SOAP Progress Note Assessment/Plan: Assessment: Marked improvement. Encouraged ambulation, po intake. Agree with coumadin. Consider transition to po abx. Will likely be able to go home with home care. Wean pain meds. Plan: 07/02/18 09:57 07/03/18 21:05 07/05/18 09:52 07/06/18 09:43 07/07/18 09:13 07/07/18 09:16 07/08/18 10:31 07/09/18 09:49 07/10/18 11:38 07/10/18 11:39 Subjective: Patient feels better, pain controlled, no N/V. Ambulating, stoma producing. Objective: Vital Signs Temp Pulse Resp BP Pulse Ox 36.8 C 102 H 20 168/97 H 99 07/10/18 07:57 07/10/18 07:57 07/10/18 07:57 07/10/18 04:00 07/10/18 07:57 Laboratory Results 07/10/18 04:05 07/10/18 04:05 07/09/18 07/10/18 07/11/18 05:59 05:59 05:59 Intake Total 2593.1 1008 Output Total 2050 4475 500 Balance 543.1 -3467 -500 PT 21.8 SEC (12.0-15.0) H 07/10/18 04:05 INR 1.89 (0.83-1.16) H 07/10/18 04:05 Alert, NAD RRR Abd soft, NTTP Inc C/D/I Stoma productive Painter clear with rare small clots ICD10 Worksheet Patient Problems: Problems Problem Status Onset Dehydration Acute Diverticulitis of intestine with abscess Acute Warfarin-induced coagulopathy Acute Acute diverticulitis Acute Bladder wall thickening Acute Diarrhea Acute Diverticulitis Acute Gastroenteritis and colitis, viral Acute Hypokalemia Acute Hyponatremia Acute Pulmonary embolism Acute Post herpetic neuralgia Chronic
[2018-07-10] MEDS ORDERED: HYDROmorphONE/DILAUDID 1 MG/ML INJ IVP PRN (15:26)
--- NOTE | 2018-07-10 15:31 | HOSPPROG ---
Hospitalist Progress Note Assessment/Plan: 73 yo female with diverticulitis admitted with abscess and perforation. On 07/03 she had sigmoidectomy with Gordon's repair of bladder for colovesicular fistula. This was complicated by post operative bleed requiring several units PRBC transfusion and return to the OR that evening. She has not had further bleeding recurrence. Post Op day 7 from sigmoidectomy w ostomy, resection of colovesicular fistula s/p postop bleed Diverticulitis of intestine with abscess and perforation Will continue Zosyn for now today is day 10. Would treat for 14 days of abx. Can likely transition to PO at discharge. Will check a PC to help guide decision Leukocytosis is noted. This is worsening but she hasnt had a fever and she is feeling better hematemesis: resolved s/p transfusions scope if recurs bid PPI Warfarin-induced coagulopathy (Acute), Resolved Hx of Right Main Pulmonary Artery P.E. and left LE DVT diagnosed on 05/18. Warfarin has been restarted Given bleeding issues, no bridge Bladder Spasm: cont Oxybutynin Painter chronic resp failure: her baseline is 2 Liters Hyponatremia: Monitor for now. 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 Wean off IV Dilaudid tomorrow will have Palliative care follow as an outpatient Subjective: feels better. Pain is better controlled today Objective: Vital Signs Temp Pulse Resp BP Pulse Ox 36.7 C 108 H 20 148/89 H 93 07/10/18 12:00 07/10/18 12:00 07/10/18 12:00 07/10/18 12:00 07/10/18 12:00 Laboratory Results 07/10/18 04:05 07/10/18 04:05 07/09/18 07/10/18 07/11/18 05:59 05:59 05:59 Intake Total 2593.1 1008 Output Total 0 4475 1350 Balance 543.1 -3467 -1350 PT 21.8 SEC (12.0-15.0) H 07/10/18 04:05 INR 1.89 (0.83-1.16) H 07/10/18 04:05 - Physical Exam Constitutional: no apparent distress Eyes: PERRL Ears, Nose, Mouth, Throat: moist mucous membranes Cardiovascular: regular rate and rhythym Respiratory: no respiratory distress, no rales or rhonchi, clear to auscultation Gastrointestinal: No tenderness Skin: warm Neurologic: AAOx3 Psychiatric: interacting appropriately, not anxious, not encephalopathic Lymph, Heme, Immunologic: No petechiae ICD10 Worksheet Patient Problems: Problems Problem Status Onset Dehydration Acute Diverticulitis of intestine with abscess Acute Warfarin-induced coagulopathy Acute Acute diverticulitis Acute Bladder wall thickening Acute Diarrhea Acute Diverticulitis Acute Gastroenteritis and colitis, viral Acute Hypokalemia Acute Hyponatremia Acute Pulmonary embolism Acute Post herpetic neuralgia Chronic
[2018-07-10] MEDS: WARFARIN SODIUM 2.5 MG TAB PO SCH (16:00)
[2018-07-10] MEDS: LORazepam 0.5 MG TAB PO PRN (19:46)
[2018-07-10] MEDS: PATCH REMOVAL 1 EA PATCH TD SCH (19:49)
[2018-07-10] MEDS: MELATONIN 3 MG TAB PO PRN (21:42)
[2018-07-11] MEDS: oxyCODONE IR 5 MG TAB PO PRN ×3 (02:58→12:51)
[2018-07-11] MEDS: LORazepam 0.5 MG TAB PO PRN ×2 (02:59→22:46)
[2018-07-11 03:20] LABS: PLATELET COUNT 308 10^3/uL (150-400)
[2018-07-11 03:29] LABS: INR 1.85 (0.83-1.16); PROTIME(PATIENT) 21.4 SEC (12.0-15.0)
[2018-07-11] MEDS: PIPERACILLIN/TAZO 3.375 GM/DEX 50 ML IV SCH ×4 (04:04→21:03)
[2018-07-11] MEDS: POTASSIUM Cl (KCl) 100 ML IV SCH ×3 (08:20→11:15)
[2018-07-11] MEDS ORDERED: MAGNESIUM SULF 1 GM/DEXTROSE 100 ML IV ONE (09:00)
[2018-07-11] MEDS: POLYETHYLENE GLYCOL 3350 17 GM PKT PO SCH (09:03)
[2018-07-11] MEDS: PANTOPRAZOLE SODIUM 40 MG TAB PO SCH ×2 (09:04→21:01)
[2018-07-11] MEDS: OXYBUTYNIN CHLORIDE 5 MG TAB PO SCH ×3 (09:04→21:01)
[2018-07-11] MEDS: LIDOCAINE 4%/MENTHOL 1% PATCH TD SCH ×2 (09:04→09:10)
--- NOTE | 2018-07-11 13:54 | SOAPPROG ---
SOAP Progress Note Assessment/Plan: Assessment: Doing well. Correct lytes, HLIV, cont po pain meds. Plan: 07/02/18 09:57 07/03/18 21:05 07/05/18 09:52 07/06/18 09:43 07/07/18 09:13 07/07/18 09:16 07/08/18 10:31 07/09/18 09:49 07/10/18 11:38 07/10/18 11:39 07/11/18 13:44 Subjective: Patient feels better, decreased pain, no N/V. Luda po, ostomy productive. Objective: Vital Signs Temp Pulse Resp BP Pulse Ox 36.8 C 108 H 16 134/88 H 96 07/11/18 11:34 07/11/18 11:34 07/11/18 11:34 07/11/18 11:34 07/11/18 11:34 Laboratory Results 07/11/18 03:00 07/11/18 03:00 07/10/18 07/11/18 07/12/18 05:59 05:59 05:59 Intake Total 1008 Output Total 4475 3900 750 Balance -3467 -3900 -750 PT 21.4 SEC (12.0-15.0) H 07/11/18 03:00 INR 1.85 (0.83-1.16) H 07/11/18 03:00 Alert, NAD RRR Abd soft, NTTP Inc C/D/I ostomy productive Painter unchanged. ICD10 Worksheet Patient Problems: Problems Problem Status Onset Dehydration Acute Diverticulitis of intestine with abscess Acute Warfarin-induced coagulopathy Acute Acute diverticulitis Acute Bladder wall thickening Acute Diarrhea Acute Diverticulitis Acute Gastroenteritis and colitis, viral Acute Hypokalemia Acute Hyponatremia Acute Pulmonary embolism Acute Post herpetic neuralgia Chronic
--- NOTE | 2018-07-11 15:55 | HOSPPROG ---
Hospitalist Progress Note Assessment/Plan: 73 yo female with diverticulitis admitted with abscess and perforation. On 07/03 she had sigmoidectomy with Gordon's repair of bladder for colovesicular fistula. This was complicated by post operative bleed requiring several units PRBC transfusion and return to the OR that evening. She has not had further bleeding recurrence. This is my first encounter with this patient. #Diverticular abscess with perforation: POD#8 from sigmoidectomy with ostomy and resection of colovesicular fistula. Doing well. - Continue zosyn, currently day 09/03. Can transition to PO abx (would choose 3rd gen PO cephalosporin and flagyl) if needs at discharge - Routine ostomy care #ABLA: Resolved. Occurred in post-op setting with supratherapeutic INR. - Monitor H/H closely with re-initiation of anticoagulation #H/o pulmonary embolus: Diagnosed 04/2018. Also with LLE DVT. - Warfarin restarted with no bridge, goal INR 2-3 #Urinary retention - Continue arias until outpatient follow up #Hyponatremia: Na 130. Suspect hypovolemic - Liberalize fluid intake, monitor #Chronic resp insufficiency: At baseline 2L via NC. #Hematemesis: Resolved. Continue PPI BID. EGD if recurs. #Anxiety: Refuses SSRI: Continue ativan PRN, don't plan to provide script at discharge. #Chronic pain: - Continue oxycontin TID (increased from BID), oxycodone PRN, lidocaine patch Ppx: SCDs, warfarin Diet: regular Code: FULL Dispo: Remain inpatient for monitoring of h/h while restarting anticoagulation. Plan to discharge to home with home health services and home palliative care. Subjective: Doing well this morning. Had breakfast. Some minimal abdominal pain. Ostomy working. No fevers. Objective: Vital Signs Temp Pulse Resp BP Pulse Ox 36.8 C 108 H 16 134/88 H 96 07/11/18 11:34 07/11/18 11:34 07/11/18 11:34 07/11/18 11:34 07/11/18 11:34 Laboratory Results 07/11/18 03:00 07/11/18 03:00 07/10/18 07/11/18 07/12/18 05:59 05:59 05:59 Intake Total 1008 Output Total 3965 3900 750 Balance -3467 -3900 -750 PT 21.4 SEC (12.0-15.0) H 07/11/18 03:00 INR 1.85 (0.83-1.16) H 07/11/18 03:00 - Physical Exam Constitutional: no apparent distress, appears nourished, not in pain Eyes: PERRL, EOMI, other (left periorbital/temporal ecchymosis) Ears, Nose, Mouth, Throat: moist mucous membranes, hearing normal, ears appear normal, no oral mucosal ulcers Cardiovascular: regular rate and rhythym, no murmur, rub, or gallop Respiratory: no respiratory distress, no rales or rhonchi, clear to auscultation Gastrointestinal: normoactive bowel sounds, soft, non-tender abdomen, no palpable masses, other (ostomy appears healthy) Genitourinary: arias in urethra (dark colored urine in bag) Skin: no rashes or abrasions, no fluctuance, no induration Neurologic: AAOx3, sensation intact bilaterally Psychiatric: interacting appropriately, not anxious, not encephalopathic, thought process linear ICD10 Worksheet Patient Problems: Problems Problem Status Onset Dehydration Acute Diverticulitis of intestine with abscess Acute Warfarin-induced coagulopathy Acute Acute diverticulitis Acute Bladder wall thickening Acute Diarrhea Acute Diverticulitis Acute Gastroenteritis and colitis, viral Acute Hypokalemia Acute Hyponatremia Acute Pulmonary embolism Acute Post herpetic neuralgia Chronic
[2018-07-11] MEDS: WARFARIN SODIUM 2.5 MG TAB PO SCH (16:21)
--- NOTE | 2018-07-11 16:59 | WOCRNPDOC ---
WOCRN Advanced Assessment Note - Colostomy Assessment, Advanced Left Colostomy Stoma Colostomy Appliance Intact: Yes Colostomy Appliance Currently in Use: Two Piece Flat, 2 3/4, Cut to Fit Stoma Color: Red Stoma Turgor: Moist Stoma Shape: Round Stoma Height: Protruding Mucocutaneus Junction: Intact Colostomy Size - Head-to-Toe Length X Width X Depth (cm): 41mm Colostomy Details: End, Gordon's Pouch Peristomal Skin: Intact Colostomy Comment/Treatment Details: Reviewed with patient the steps to an appliance change. Patient seemed somewhat confused, needed repeating of teaching multiple times. Appliance was removed with adhesive remover and the peristomal skin cleansed with a wet wash cloth. Demonstated to patient how to measure stoma, karena back of wafer, and cut the wafer to fit. Patient and family member verbalized understanding. Patient was able to demonstrate how to open and close the pouch. Patient was encouraged to empty the pouch with RN standing by to assist if needed over the weekend. Patient did state that she read the materials left by science and operations officer and watched the DVD. All questions answered. Patient to do ostomy appliance change on Saturday with science and operations officer standing by for support. Will round again on Saturday.
[2018-07-11] MEDS: PATCH REMOVAL 1 EA PATCH TD SCH (21:01)
[2018-07-11] MEDS: POTASSIUM Cl (KCl) 50 ML IV SCH ×2 (22:32→23:41)
[2018-07-12] MEDS: POTASSIUM Cl (KCl) 50 ML IV SCH (00:47)
[2018-07-12] MEDS: oxyCODONE IR 5 MG TAB PO PRN ×3 (01:55→23:35)
[2018-07-12] MEDS: PIPERACILLIN/TAZO 3.375 GM/DEX 50 ML IV SCH ×4 (04:01→21:57)
[2018-07-12 05:53] LABS: INR 2.22 (0.83-1.16); PROTIME(PATIENT) 24.6 SEC (12.0-15.0)
[2018-07-12] MEDS: LORazepam 0.5 MG TAB PO PRN ×3 (06:41→20:59)
[2018-07-12] MEDS ORDERED: MAGNESIUM SULF 1 GM/DEXTROSE 100 ML IV ONE (08:51)
[2018-07-12] MEDS ORDERED: POTASSIUM Cl (KCl) 50 ML IV ONE (08:51)
[2018-07-12] MEDS: OXYBUTYNIN CHLORIDE 5 MG TAB PO SCH ×3 (09:15→21:55)
[2018-07-12] MEDS: PANTOPRAZOLE SODIUM 40 MG TAB PO SCH ×2 (09:15→21:55)
[2018-07-12] MEDS: POLYETHYLENE GLYCOL 3350 17 GM PKT PO SCH (09:17)
--- NOTE | 2018-07-12 09:34 | SOAPPROG ---
SOAP Progress Note Assessment/Plan: Assessment: Doing well. Plan d/c when lytes stable, home care arranged. Plan: 07/02/18 09:57 07/03/18 21:05 07/05/18 09:52 07/06/18 09:43 07/07/18 09:13 07/07/18 09:16 07/08/18 10:31 07/09/18 09:49 07/10/18 11:38 07/10/18 11:39 07/11/18 13:44 07/12/18 09:32 Subjective: Patient doing well, minimal pain. Ambulating, anna po. Objective: Vital Signs Temp Pulse Resp BP Pulse Ox 36.7 C 97 19 158/98 H 97 07/12/18 07:35 07/12/18 07:35 07/12/18 07:35 07/12/18 07:35 07/12/18 07:35 Laboratory Results 07/12/18 05:30 07/12/18 05:30 07/11/18 07/12/18 07/13/18 05:59 05:59 05:59 Intake Total 250 Output Total 3900 3025 325 Balance -3900 -2775 -325 PT 24.6 SEC (12.0-15.0) H 07/12/18 05:30 INR 2.22 (0.83-1.16) H 07/12/18 05:30 Alert, NAD RRR Abd soft, NTTP Inc C/D/I Ostomy viable Painter clear ICD10 Worksheet Patient Problems: Problems Problem Status Onset Dehydration Acute Diverticulitis of intestine with abscess Acute Warfarin-induced coagulopathy Acute Acute diverticulitis Acute Bladder wall thickening Acute Diarrhea Acute Diverticulitis Acute Gastroenteritis and colitis, viral Acute Hypokalemia Acute Hyponatremia Acute Pulmonary embolism Acute Post herpetic neuralgia Chronic
[2018-07-12] MEDS: LIDOCAINE 4%/MENTHOL 1% PATCH TD SCH (10:36)
--- NOTE | 2018-07-12 14:01 | HOSPPROG ---
Hospitalist Progress Note Assessment/Plan: 73 yo female with diverticulitis admitted with abscess and perforation. On 07/03 she had sigmoidectomy with Gordon's repair of bladder for colovesicular fistula. This was complicated by post operative bleed requiring several units PRBC transfusion and return to the OR that evening. She has not had further bleeding recurrence. #Diverticular abscess with perforation: POD#9 from sigmoidectomy with ostomy and resection of colovesicular fistula. Doing well. - Continue zosyn, currently day 12. Can transition to PO abx (would choose 3rd gen PO cephalosporin and flagyl) if needs at discharge - Routine ostomy care #ABLA: Resolved. Occurred in post-op setting with supratherapeutic INR. - Monitor H/H daily with re-initiation of anticoagulation #H/o pulmonary embolus: Diagnosed 04/2018. Also with LLE DVT. - Warfarin now at goal INR 2-3 #Hypokalemia: Still requiring IV repletion - Continue on K protocol #Urinary retention: Urology following. - Continue arias until outpatient follow up #Hyponatremia: Stable. - Liberalize fluid intake, monitor #Chronic resp insufficiency: At baseline 2L via NC. #Hematemesis: Resolved. Continue PPI BID. EGD if recurs. #Anxiety: Refuses SSRI. - Continue ativan PRN, don't plan to provide script at discharge. #Chronic pain: - Continue oxycontin TID (increased from BID), oxycodone PRN, lidocaine patch Ppx: SCDs, warfarin Diet: regular Code: FULL Dispo: Remain inpatient for monitoring of h/h while restarting anticoagulation and IV K repletion. Plan to discharge to home with home health services and home palliative care, planning on Saturday. Subjective: Feeling pretty well. Showered this AM. Getting annoyed with all the things she's getting in her IV. Objective: Vital Signs Temp Pulse Resp BP Pulse Ox 36.8 C 102 H 22 H 155/110 H 93 07/12/18 11:03 07/12/18 11:03 07/12/18 11:03 07/12/18 11:03 07/12/18 11:03 Laboratory Results 07/12/18 05:30 07/12/18 05:30 07/11/18 07/12/18 07/13/18 05:59 05:59 05:59 Intake Total 250 Output Total 3900 3025 325 Balance -3900 -2775 -325 PT 24.6 SEC (12.0-15.0) H 07/12/18 05:30 INR 2.22 (0.83-1.16) H 07/12/18 05:30 - Physical Exam Constitutional: no apparent distress, appears nourished, not in pain Eyes: PERRL, anicteric sclera, EOMI Ears, Nose, Mouth, Throat: other (left periorbital ecchymosis) Cardiovascular: no murmur, rub, or gallop, tachycardia, edema (trace to knees), No JVD Respiratory: no respiratory distress, no rales or rhonchi, clear to auscultation Gastrointestinal: normoactive bowel sounds, soft, non-tender abdomen, no palpable masses, other (ostomy functioning well) Genitourinary: arias in urethra Skin: no rashes or abrasions, no fluctuance, no induration, other (L subclavian CVC with some dried blood but otherwise w/o signs of infection) Neurologic: AAOx3, sensation intact bilaterally Psychiatric: interacting appropriately, not anxious, not encephalopathic, thought process linear ICD10 Worksheet Patient Problems: Problems Problem Status Onset Dehydration Acute Diverticulitis of intestine with abscess Acute Warfarin-induced coagulopathy Acute Acute diverticulitis Acute Bladder wall thickening Acute Diarrhea Acute Diverticulitis Acute Gastroenteritis and colitis, viral Acute Hypokalemia Acute Hyponatremia Acute Pulmonary embolism Acute Post herpetic neuralgia Chronic
--- NOTE | 2018-07-12 15:42 | ASMTCMCOM ---
CM Note CM Note Notes: Spoke w/MD, pt will likely be here until Saturday. Plan is to dc home w/[facility] and [facility]. Pt lives with roomate who is working on accomodating apartment. PT/OT recommend SNF but pt has refused. CM w/f for any changes. DC Plan: [facility] + [facility] Date Signed: 07/12/2018 03:41 PM Electronically Signed By:Linh Mark RN
[2018-07-12] MEDS: WARFARIN SODIUM 2.5 MG TAB PO SCH (16:02)
[2018-07-12] MEDS: PATCH REMOVAL 1 EA PATCH TD SCH (22:19)
[2018-07-13] MEDS: oxyCODONE IR 5 MG TAB PO PRN ×4 (03:40→23:10)
[2018-07-13] MEDS: PIPERACILLIN/TAZO 3.375 GM/DEX 50 ML IV SCH ×4 (04:12→21:13)
[2018-07-13 05:18] LABS: INR 2.42 (0.83-1.16); PROTIME(PATIENT) 26.3 SEC (12.0-15.0)
[2018-07-13] MEDS: LIDOCAINE 4%/MENTHOL 1% PATCH TD SCH (09:12)
[2018-07-13] MEDS: OXYBUTYNIN CHLORIDE 5 MG TAB PO SCH ×3 (09:12→21:07)
[2018-07-13] MEDS: PANTOPRAZOLE SODIUM 40 MG TAB PO SCH ×2 (09:12→21:07)
[2018-07-13] MEDS: POLYETHYLENE GLYCOL 3350 17 GM PKT PO SCH (09:13)
[2018-07-13] MEDS ORDERED: MAGNESIUM SULF 1 GM/DEXTROSE 100 ML IV ONE (10:42)
[2018-07-13] MEDS ORDERED: POTASSIUM CL 10 MEQ TAB PO ONE (11:17)
--- NOTE | 2018-07-13 13:27 | HOSPPROG ---
Hospitalist Progress Note Assessment/Plan: 73 yo female with diverticulitis admitted with abscess and perforation. On 07/03 she had sigmoidectomy with Gordon's repair of bladder for colovesicular fistula. This was complicated by post operative bleed requiring several units PRBC transfusion and return to the OR that evening. She has not had further bleeding recurrence. #Diverticular abscess with perforation: POD#10 from sigmoidectomy with ostomy and resection of colovesicular fistula. Doing well. - Continue zosyn, currently day . - Routine ostomy care, plan for change tomorrow with ongoing education #ABLA: Resolved. Occurred in post-op setting with supratherapeutic INR. - Monitor H/H daily #H/o pulmonary embolus: Diagnosed 04/2018. Also with LLE DVT. - Warfarin now at goal INR 2-3 #Hypokalemia: still llow - Continue on K protocol, switch to PO #Urinary retention: Urology following. - Continue oxybutynin, arias until outpatient follow up #Hyponatremia: Stable. - Liberalize fluid intake, monitor #Chronic resp insufficiency: At baseline 2L via NC. #Hematemesis: Resolved. Continue PPI BID. EGD if recurs. #Anxiety: Refuses SSRI. - Continue ativan PRN, don't plan to provide script at discharge. #Chronic pain: - Continue oxycontin TID (increased from BID), oxycodone PRN, lidocaine patch Ppx: warfarin Diet: regular Code: FULL Dispo: Remain inpatient for management of above, IV antibiotics. Plan to discharge tomorrow with home health care and home palliative services. Subjective: Doing well, no issues. Walked around a bit yesterday and this morning. Ostomy working ok Objective: Vital Signs Temp Pulse Resp BP Pulse Ox 36.7 C 112 H 21 H 154/96 H 93 07/13/18 11:08 07/13/18 11:09 07/13/18 11:08 07/13/18 11:08 07/13/18 11:08 Laboratory Results 07/13/18 05:00 07/13/18 05:00 07/12/18 07/13/18 07/14/18 05:59 05:59 05:59 Intake Total 250 500 Output Total 0726 8853 046 Balance -5161 -0025 -650 PT 26.3 SEC (12.0-15.0) H 07/13/18 05:00 INR 2.42 (0.83-1.16) H 07/13/18 05:00 - Physical Exam Constitutional: no apparent distress, appears nourished, not in pain Eyes: PERRL, anicteric sclera, EOMI Ears, Nose, Mouth, Throat: moist mucous membranes, hearing normal, ears appear normal, no oral mucosal ulcers Cardiovascular: regular rate and rhythym, no murmur, rub, or gallop Respiratory: no respiratory distress, no rales or rhonchi, clear to auscultation Gastrointestinal: normoactive bowel sounds, soft, non-tender abdomen, no palpable masses, other (ostomy in place) Skin: no rashes or abrasions, no fluctuance, no induration Neurologic: AAOx3, sensation intact bilaterally Psychiatric: interacting appropriately, not anxious, not encephalopathic, thought process linear ICD10 Worksheet Patient Problems: Problems Problem Status Onset Dehydration Acute Diverticulitis of intestine with abscess Acute Warfarin-induced coagulopathy Acute Acute diverticulitis Acute Bladder wall thickening Acute Diarrhea Acute Diverticulitis Acute Gastroenteritis and colitis, viral Acute Hypokalemia Acute Hyponatremia Acute Pulmonary embolism Acute Post herpetic neuralgia Chronic
--- NOTE | 2018-07-13 13:58 | ASMTCMCOM ---
CM Note CM Note Notes: CM met with patient to check in, plan continues to discharge tomorrow to home with [facility] Home Care and [facility]. Patient denies any further CM/discharge questions. CM to follow. Current Discharge Plan: likely discharge 07/14 with [facility] Home Care and [facility]. Date Signed: 07/13/2018 01:57 PM Electronically Signed By:Shanna Hester
[2018-07-13] MEDS: WARFARIN SODIUM 2.5 MG TAB PO SCH (15:46)
[2018-07-13] MEDS: PATCH REMOVAL 1 EA PATCH TD SCH (22:56)
[2018-07-14] MEDS: oxyCODONE IR 5 MG TAB PO PRN ×2 (04:19→08:27)
[2018-07-14] MEDS: PIPERACILLIN/TAZO 3.375 GM/DEX 50 ML IV SCH ×2 (04:19→13:59)
[2018-07-14 04:49] LABS: INR 2.28 (0.83-1.16); PROTIME(PATIENT) 25.1 SEC (12.0-15.0)
[2018-07-14] MEDS: POLYETHYLENE GLYCOL 3350 17 GM PKT PO SCH (08:24)
[2018-07-14] MEDS: OXYBUTYNIN CHLORIDE 5 MG TAB PO SCH (08:24)
[2018-07-14] MEDS: PANTOPRAZOLE SODIUM 40 MG TAB PO SCH (08:24)
[2018-07-14] MEDS ORDERED: POTASSIUM CL 10 MEQ TAB PO ONE (08:39)
[2018-07-14] MEDS: LIDOCAINE 4%/MENTHOL 1% PATCH TD SCH (09:02)
[2018-07-14] MEDS ORDERED: POTASSIUM Cl (KCl) 10 MEQ in NS 100 ML IV ONE (09:15)
[2018-07-14] MEDS ORDERED: POTASSIUM Cl (KCl) 50 ML IV ONE (09:15)
--- NOTE | 2018-07-14 09:25 | PDIAF ---
- Diagnosis Code Status: Full Code - Medication Management Discharge Medications: Medications to Continue on Transfer SUMAtriptan [Imitrex Nasal [place]] 20 mg NS DAILY PRN 07/18/15 [Last Taken ] oxyCODONE IR [Oxycodone Ir (*)] 10 mg PO TID PRN 01/06/18 [Last Taken 06/12/18 06:00] Ondansetron Odt [Zofran Odt 4 mg (*)] 4 mg PO Q4HRS PRN 06/12/18 [Last Taken 08/07] Oxybutynin Chloride [Ditropan] 5 mg PO TID #90 tab 07/14/18 [Last Taken Unknown] Warfarin Sodium [Coumadin 2.5MG (*)] 2.5 mg PO DAILY16 #30 tab 07/14/18 [Last Taken Unknown] amLODIPine BESYLATE [Norvasc 2.5 mg (*)] 2.5 mg PO DAILY #30 tab 07/14/18 [Last Taken Unknown] oxyCODONE CR [Oxycontin] 20 mg PO TID #0 07/14/18 [Last Taken 06/30/18] Discharge Medications: Refer to the Discharge Home Medication list for PRN reason. - Orders Services needed: Home Care, Registered Nurse, Physical Therapy, Occupational Therapy Home Care Face to Face: I certify that this patient was under my care and that I had the required [id number] encounter meeting the encounter requirements on the discharge day. My findings support the fact that the patient is homebound as defined in Home Care Face to Face Continued: CMS Chapter 7 Medicare Benefits Manual 30.1.1 , The condition of the patient is such that there exists a normal inability to leave home and consequently, leaving home would require a considerable and taxing effort. Isolation Type: None Additional Instructions: Here are your discharge instructions: 1. You will be discharged with your arias catheter. I have made referral to our urologists; you should call them to get a follow up appointment. 2. I have prescribed oxybutynin. This is to help your bladder. You should continue this until you see the urologist. 3. We do not want you taking potassium supplements while you are on the oxybutynin. I have discontinued your potassium for now. I encourage you to eat high potassium containing foods. 4. We have started you on a low dose of a blood pressure medication called amlodipine. You should take this daily. 5. Your dose of warfarin has been changed to 2.5mg daily. I sent a prescription for this to your pharmacy. You should continue to routinely get your INR checked. 6. We have increased your long-acting pain medication (oxycontin) from 20mg twice daily to three times/day. Please make an appointment and discuss this change with your pain specialist. We will not be prescribing you additional oxycontin. 7. We are setting you up with home health services as well as palliative care services through [facility]. 8. Below are your ostomy care instructions. Ostomy discharge information: When you go home you will be receiving samples from one or more companies. We understand that at first you may feel overwhelmed by all the choices. The ostomy nurses recommend that you continue with the appliance you were discharged with when you left the hospital for a month or two to adjust to the appliance. If however you have problems with leaking or itching under your faceplate/wafer, you may want to try some different samples.~ After you have adjusted to your stoma and feel ready, then you may look at the features of the new appliances and see if there is one that you like the look/feel/performance of better. There are 3 main ostomy supply companies out there: [employer], [employer] and [employer] all with varying features and options. If you have any leaking or pouching issues, or just need some questions answered , we recommend a consultation with our outpatient ostomy nurses. You can reach them at [phone] [facility]. Please note that they are often scheduled several weeks out.~ - Follow Up Care Current Providers and Referrals: Kate Lee MD [Primary Care Provider] - As per Instructions Samanta Zacarias MD [Medical Doctor] -
[2018-07-14] MEDS ORDERED: POTASSIUM Cl (KCl) 100 ML IV ONE (09:30)
--- NOTE | 2018-07-14 11:08 | SOAPPROG ---
SOAP Progress Note Assessment/Plan: Assessment: Stable for d/c. D/w patient and family at length, questions answered. F/u 2 weeks. Plan: 07/02/18 09:57 07/03/18 21:05 07/05/18 09:52 07/06/18 09:43 07/07/18 09:13 07/07/18 09:16 07/08/18 10:31 07/09/18 09:49 07/10/18 11:38 07/10/18 11:39 07/11/18 13:44 07/12/18 09:32 07/14/18 11:07 Subjective: Patient feels better overall, pain controlled. Ambulating well. Objective: Vital Signs Temp Pulse Resp BP Pulse Ox 36.6 C 114 H 16 132/89 H 92 07/14/18 08:00 07/14/18 08:00 07/14/18 08:00 07/14/18 08:24 07/14/18 08:00 Laboratory Results 07/14/18 04:25 07/14/18 04:25 07/13/18 07/14/18 07/15/18 05:59 05:59 05:59 Intake Total 500 450 Output Total 3925 2900 Balance -3425 -2900 450 PT 25.1 SEC (12.0-15.0) H 07/14/18 04:25 INR 2.28 (0.83-1.16) H 07/14/18 04:25 Alert, NAD RRR Abd soft, [employer] C/D/I; manuel removed, steristrips applied. Ostomy productive Painter clear ICD10 Worksheet Patient Problems: Problems Problem Status Onset Dehydration Acute Diverticulitis of intestine with abscess Acute Warfarin-induced coagulopathy Acute Acute diverticulitis Acute Bladder wall thickening Acute Diarrhea Acute Diverticulitis Acute Gastroenteritis and colitis, viral Acute Hypokalemia Acute Hyponatremia Acute Pulmonary embolism Acute Post herpetic neuralgia Chronic
[2018-07-14 12:18] VITALS: BP 158/97
--- NOTE | 2018-07-14 12:33 | ASMTLACE ---
LACE Length of stay for Answers: 7-13 days current admission Acuity / Level of Answers: Yes Care: Did the patient have an inpatient admission? Comorbidities - select Answers: Opioid dependence all that apply / Chronic pain Other Notes: Hx of PE and DVT; HTN # of Emergency department Answers: 5-8 visits in the last 6 months Score: 17 Date Signed: 07/14/2018 12:30 PM Electronically Signed By:YIMI Hager
--- NOTE | 2018-07-14 12:35 | ASMTDCNOTE ---
Case Management Discharge Discharge Order Complete? Answers: Yes Patient to Obtain Answers: via Family Medications Transportation Arranged Answers: Family/Friends EMTALA Complete Answers: No Case Management Transport Answers: No Form Complete Faxed Final Orders Answers: Yes Agency/Facility Transfer Answers: Yes Report Printed & Faxed to Receiving Agency Family Notified Answers: No Discharge Comments Notes: Pts case discussed w/ Dr. Dhillon and KHLOE Barnard. Pt is being discharged today. DC orders sent to [facility]. notified [facility] of the d/c. provided KHLOE Barnard w/ phone number to give report. CM available for changes. Plan: [facility]; RN, PT, OT w/ [facility] Pal Date Signed: 07/14/2018 12:32 PM Electronically Signed By:YIMI Hager
--- NOTE | 2018-07-14 16:08 | ASDISCHSUM ---
Discharge Information Plan Status:Home with Home Health Medically Cleared to Leave:07/14/2018 Discharge Date:07/14/2018 01:14 PM CM D/C Disposition:Home Health Service ADT D/C Disposition:Home Health Service Projected Discharge Date:07/14/2018 11:00 AM Transportation at D/C:Friend Discharge Delay Reason: Follow-Up Date:07/14/2018 11:00 AM Discharge Slot: Final Diagnosis:DVT abscess, Colovesical fistula Placement Information Referral Type:*Home Health Care Services Referral ID:[id number] Provider Name:[facility] Address 1:[address] [address] Address 2: City:[place] Selection Factors: State:[place] Referral Type:Palliative Care Referral ID:[id number] Provider Name:[facility] Address 1:[address] Home Phone Number: Address 2: Fax Number: [facility]:[place] Selection Factors: State:[place] Patient Contact Information Contact Name:JOANN Relationship:Friend Address:[address] City:[place] Alternate Phone: State/Zip Code:[place] [address] Email: Financial Information Financial Class:HMO and PPO Plans Primary Plan Desc:USAMA JACQUES Primary Plan Number:[id number] Secondary Plan Desc: Secondary Plan Number: Assessment Information LACE LACE Length of stay for Answers: 7-13 days current admission Acuity / Level of Answers: Yes Care: Did the patient have an inpatient admission? Comorbidities - select Answers: Opioid dependence all that apply / Chronic pain Other Notes: Hx of PE and DVT; HTN # of Emergency department Answers: 5-8 visits in the last 6 months Score: 17 Date Signed: 07/14/2018 12:30 PM Electronically Signed By:YIMI Hager [facility] Initial CM Assessment Living Arrangements What is your living Answers: Alone arrangement? Who do you live with? Type Of Residence What kind of residence do Answers: House you live in? Discharge Plan Comments Coordination Status Comments Notes: Pt is a 73 y/o female admitted for diverticular abscess with possible colovesical fistula. Dr. Marin plans on taking pt to surgery. Therapies have been ordered and awaiting recommendations. Needs are TBD at this time. CM to follow. Plan: TBD Date Signed: 07/01/2018 11:24 AM Electronically Signed By:YIMI Hager [facility] CM Progress Note CM Note CM Note Notes: Patient's INR at 4.3. Patient will need blood, FFP and poss Vit K. Patient may require reoperation if no improvement. Patient unable to work with therapies so far. D/C plan remains TBD. CM will follow. Date Signed: 07/04/2018 11:28 AM Electronically Signed By:Ana Arreola LCSW [facility] CM Progress Note CM Note CM Note Notes: PT/OT recommending SNF rehab. Spoke with patient who would rather return home with HC. She has a friend Misty [phone], who lives with her but not that interested in taking care of patient. Wound care/application performance engineer and PACKAGE [employer]ER bot feel that with all the surgeries, it would be beneficial for patient to go to a SNF. Date Signed: 07/07/2018 04:49 PM Electronically Signed By:Nelia Groves LCSW [facility] CM Progress Note CM Note CM Note Notes: Met with Misty, patient's roommate, in a "Family Meeting". Misty is very supportive of patient returning home. She reported that she didn't think they were as prepared as they could have been after her last hospitalization. They had BC and would like them to assist on discharge with RN/PT/OT. Misty plans on getting a bed for the 1st level and hiring non-medical care. [facility] has been notified. Date Signed: 07/08/2018 03:00 PM Electronically Signed By:Nelia Groves LCSW [facility] CM Progress Note CM Note CM Note Notes: [facility] Hdez to meet with patient and roommate Misty 11:00AM. Referral sent. Date Signed: 07/09/2018 03:21 PM Electronically Signed By:Nelia Groves LCSW [facility] CM Progress Note CM Note CM Note Notes: Spoke w/, pt will likely be here until Saturday. Plan is to dc home w/[facility] and [facility]. Pt lives with roomate who is working on accomodating apartment. PT/OT recommend SNF but pt has refused. CM w/f for any changes. DC Plan: [facility] + [facility] Date Signed: 07/12/2018 03:41 PM Electronically Signed By:Linh Mark RN [facility] Progress Note CM Note CM Note Notes: CM met with patient to check in, plan continues to discharge tomorrow to home with [facility] and [facility]. Patient denies any further CM/discharge questions. CM to follow. Current Discharge Plan: likely discharge 07/14 with [facility] and [facility]. Date Signed: 07/13/2018 01:57 PM Electronically Signed By:Shanna Hester Case Management Discharge Plan Note Case Management Discharge Discharge Order Complete? Answers: Yes Patient to Obtain Answers: via Family Medications Transportation Arranged Answers: Family/Friends EMTALA Complete Answers: No Case Management Transport Answers: No Form Complete Faxed Final Orders Answers: Yes Agency/Facility Transfer Answers: Yes Report Printed & Faxed to Receiving Agency Family Notified Answers: No Discharge Comments Notes: Pts case discussed w/ Dr. Dhillon and KLHOE Barnard. Pt is being discharged today. DC orders sent to [facility]. notified [facility] of the d/c. provided KHLOE Barnard w/ phone number to give report. CM available for changes. Plan: [facility]; RN, PT, OT w/ Jocelynn Pal Date Signed: 07/14/2018 12:32 PM Electronically Signed By:YIMI Hager Intervention Information
--- NOTE | 2018-07-14 21:13 | PDDCSUM ---
Discharge Summary Discharge Summary: Date of Admission: 06/30/2018 Date of Discharge: 07/14/2018 Consultants: general surgery, bog cutter, urology, wound care Procedures/Studies: sigmoidectomy and Gordon procedure, repair of colovesicular fistula, exploratory laparotomy with evacuation of post-operative hemorrhage Disposition: home with home health RN/PT/OT and palliative care Discharge Diagnoses: 1. Diverticular abscess with perforation s/p sigmoidectomy and Gordon procedure 2. Colovesicular fistula s/p repair 3. Post-operative hemorrhage s/p exploratory laparotomy 4. Acute blood loss anemia 5. Warfarin-induced coagulopathy 6. H/o DVT/PE 7. Urinary retention 8. Hypokalemia 9. Chronic pain 10. Anxiety 11. Chronic respiratory insufficiency Brief Hospital Course: 73 yo female with recent DVT/PE on warfarin, diverticulitis admitted with diverticular abscess and perforation. On 07/03 she had sigmoidectomy with Gordon's repair of bladder for colovesicular fistula. This was complicated by post operative bleed requiring several units PRBCs, reversal of warfarin- induced coagulopathy, and return to the OR emergently that evening for exploratory laparotomy with evacuation of post-operative hemorrhage. She did not have any further bleeding recurrence after re-initiation of warfarin and her INR was therapeutic at discharge. She received ostomy teaching and is being discharged with home health RN in addition to PT/OT for deconditioning. She had urinary retention while hospitalized and arias was left in place at discharge. She was started on oxybutynin and will follow up with urology for arias removal and further management. She was quite hypokalemic throughout the stay and required frequent IV repletion. She is not being discharged on oral repletion as oxybutynin interferes with its absorption. If she will be on oxybutynin long-term, she should be a repeat BMP in the future to monitor her K level. Regarding her pain, her long-acting oxycontin was increased from BID to TID. She has a pain specialist who she should follow up with. A large component of her pain is likely anxiety driven, however, she declined to be started on an SSRI. Medications: Please refer to EMR for complete list. Changes this admission include addition of oxybutynin and amlodipine and increase in her oxycontin from BID to TID however she was not given a prescription for the latter. Follow Up Plan: 1. She is being discharged with home health 2. Follow up with pain specialist to address increase in pain meds 3. Urology appointment to address arias catheter, oxybutynin Physical Exam: Vitals reviewed, intermittent sinus tachycardia that has been chronic. Alert and oriented without focal neuro deficits. RRR without m/r/g, lungs clear, abdomen soft with ostomy, trace LE edema to mid lee, no rashes, left periorbital ecchymosis.
== END 2018-07-14 13:14 | disposition home health service (06) | DRG 330 ==
LOC: F3E 10:12 → F2N 07-03 21:35 → F3E 07-09 17:19
PROVIDERS: ADMIT Internal Medicine; ATTEND Internal Medicine
PROC: 30233N1 Transfusion of Nonautologous Red Blood Cells into Peripheral Vein, Percutaneous Approach (ICD-10-PCS; 2018-07-03)
PROC: 0DQE0ZZ Repair Large Intestine, Open Approach (ICD-10-PCS; principal; 2018-07-03 13:00)
PROC: 0TQB0ZZ Repair Bladder, Open Approach (ICD-10-PCS; principal; 2018-07-03 13:00)
PROC: 0D1N0Z4 Bypass Sigmoid Colon to Cutaneous, Open Approach (ICD-10-PCS; principal; 2018-07-03 13:00)
PROC: 0DBN0ZZ Excision of Sigmoid Colon, Open Approach (ICD-10-PCS; principal; 2018-07-03 13:00)
PROC: 0D5V0ZZ Destruction of Mesentery, Open Approach (ICD-10-PCS; 2018-07-04)
PROC: 0W9F0ZZ Drainage of Abdominal Wall, Open Approach (ICD-10-PCS; 2018-07-04)
DX: K57.20 Diverticulitis of large intestine with perforation and abscess without bleeding (principal); K63.2 Fistula of intestine; D68.32 Hemorrhagic disorder due to extrinsic circulating anticoagulants; T45.515A Adverse effect of anticoagulants, initial encounter; K91.870 Postprocedural hematoma of a digestive system organ or structure following a digestive system procedure; D62 Acute posthemorrhagic anemia; K56.7 Ileus, unspecified; E87.1 Hypo-osmolality and hyponatremia; E87.6 Hypokalemia; E83.42 Hypomagnesemia; B02.22 Postherpetic trigeminal neuralgia; I10 Essential (primary) hypertension; G43.909 Migraine, unspecified, not intractable, without status migrainosus; R06.89 Other abnormalities of breathing; Z86.711 Personal history of pulmonary embolism; Z86.718 Personal history of other venous thrombosis and embolism; Z79.01 Long term (current) use of anticoagulants
CPT/HCPCS: 82435-PO; 82565-PO; 82947-PO; 84132-PO; 84295-PO; 84520-PO; 85014-PO; 96374; 97116-GP; 97161-GP; 97165-GO; 97530-GP; 97535-GO; J1170; J1335; J1650; J2001; J2060; J2405; J2543; J2704; J3010; J3430; J3475; J3480; P9016; P9017; P9040; P9041; Q9967

== ENCOUNTER → 2018-07-21 | Outpatient (CLI) | payer OTHER ==
[~2018-07-21] MED LIST: IOTHALAMATE MEG (CYSTO-CONRAY II) 250 ML VIAL BLADIN ONE
== END ==
LOC: FIMAGING 09:10
PROVIDERS: ATTEND Urology
PROC: 3E0K3KZ Introduction of Other Diagnostic Substance into Genitourinary Tract, Percutaneous Approach (ICD-10-PCS; principal; 2018-07-21)
DX: Z09 Encounter for follow-up examination after completed treatment for conditions other than malignant neoplasm (principal)
CPT/HCPCS: Q9961

== ENCOUNTER 2018-10-11 10:04 | Inpatient (IN) | payer OTHER ==
--- NOTE | 2018-10-11 10:14 | EDPHY ---
H & P Time Seen by Provider: 10/11/18 10:11 HPI/ROS: CHIEF COMPLAINT: Altered mental status HISTORY OF PRESENT ILLNESS: 73-year-old female arrives via ambulance after her friend in power of manager of development called 911. History obtained from the friend as the patient's mentation is altered. The friend reports that she was checking on the patient this morning and found her on the floor, head stuck between the bed and the nightstand, laceration left pretibial region, not acting normally. Patient unable to provide history of what specifically happened. The friend notes that the patient has been speaking nonsensical sentences. In interviewing the patient she believes is 1971, is aware that she is in [place] but is not sure what type of building she is currently in or what happened. She is complaining of pain "everywhere". Unable to specify further. Past medical history obtained from past medical records, significant for DVT PE with warfarin induced coagulopathy, chronic pain, opiate dependence. Interviewing the patient's medications or [place] with her, she last had a prescription for oxycodone 10 mg, # 90 tablets filled 4 days ago and currently has 4 tablets left. REVIEW OF SYSTEMS: 10 systems reviewed and negative with the exception of the elements mentioned in the history of present illness PAST MEDICAL/SURGICAL HISTORY: Warfarin anticoagulation secondary DVT PE history. Diverticular abscess with perforation, sigmoidectomy. Colostomy. Hypokalemia. Chronic pain. Anxiety. Chronic respiratory insufficiency. SOCIAL HISTORY: Lives by herself PHYSICAL EXAM 1) GENERAL: Well-developed, well-nourished, awake, believes is 1971, speaking sentences which do not make sense.. 2) HEAD: Normocephalic, atraumatic 3) HEENT: Pupils equal, round, reactive to light bilaterally. Negative Horners. Nasopharynx, oropharynx, clear. No deformity or angulation of nose. No septal hematoma. No rhinorrhea. No oral trauma. Ears bilaterally with normal tympanic membranes. No hemotympanum. No fluid or blood in the external auditory canal. No raccoon eyes. No Sosa sign. Teeth are normally aligned with no gross malocclusion, TMJ bilaterally nontender, facial bones nontender including the zygomatic arch, maxilla mandible. 4) NECK: No pre-hospital cervical collar is on. Posterior cervical spine is nontender, no stepoff, no effusion. Full range of motion which does not elicit any midline cervical spine pain, no posterior midline tenderness, no step-off. Cervical collar is placed due to altered mentation and possible head injury 5) LUNGS: Clear to auscultation bilaterally, no wheezes, no rhonchi, no retractions. No obvious signs of trauma. Tender to palpation chest wall. No flaring, no grunting. Moving symmetrically. No crepitus. 6) HEART: Regular rate and rhythm, 7) ABDOMEN: No guarding, tender to palpation with light touch to all quadrants. 8) MUSCULOSKELETAL: Bilateral upper extremities: Pain to bilateral dorsal hand with ecchymosis noted. No deformity or angulation. Left lower extremity: No shortening or malrotation. Left pretibial skin tear noted. Distal DP PT pulses. Otherwise, Moving all extremities, no focal areas of tenderness, no obvious trauma. 9) BACK: No visible signs of trauma. Diffusely tender to palpation upon her thoracic and lumbar spine with no obvious trauma. No step-off. No effusion. 10) SKIN: left pretibial skin tear DIFFERENTIAL DIAGNOSIS: In no particular orderincluding but not limited to hypoglycemia, infectious process, electrolyte abnormality, head injury and intoxicants. - Personal History Tetanus Vaccine Date: <10yrs - Medical/Surgical History Hx Asthma: No Hx Chronic Respiratory Disease: No Hx Diabetes: No Hx Cardiac Disease: No Hx Renal Disease: No Hx Cirrhosis: No Hx Alcoholism: No Hx HIV/AIDS: No Hx Splenectomy or Spleen Trauma: No Other PMH: CHRONIC PAIN POST SHINGLES / ULCERS. Migraines, HTN, PNA-USES O2, diverticulitis. pe dvt left leg - Social History Smoking Status: Never smoked Constitutional: Initial Vital Signs Temperature (C) 36.9 C 10/11/18 10:16 Heart Rate 82 10/11/18 10:16 Respiratory Rate 16 10/11/18 10:16 Blood Pressure 171/94 H 10/11/18 10:16 O2 Sat (%) 92 10/11/18 10:16 O2 Delivery Mode Room Air Allergies/Adverse Reactions: hydrocodone bitartrate [From Vicodin] Allergy (Severe, Verified 10/11/18 10:15) Vomiting ciprofloxacin Allergy (Unknown, Verified 10/11/18 10:15) Vomiting prochlorperazine Allergy (Unknown, Verified 10/11/18 10:15) parkinsonian-like reaction hydrocodone bitartrate Allergy (Unknown, Uncoded 06/30/18 07:24) Vomiting Home Medications: Medication Instructions Recorded SUMAtriptan [Imitrex Nasal [place]] 20 mg NS DAILY PRN 07/18/15 oxyCODONE IR [Oxycodone Ir (*)] 10 mg PO TID PRN 01/06/18 Ondansetron Odt [Zofran Odt 4 mg 4 mg PO Q4HRS PRN 06/12/18 (*)] Warfarin Sodium [Coumadin 2.5MG 2.5 mg PO DAILY16 #30 tab 07/14/18 (*)] Potassium Cl [Klor-Con] 10 meq PO DAILY 10/11/18 Prazosin HCl [Minipress 1mg (*)] 1 mg PO HS 10/11/18 oxyCODONE HCL [Oxycontin] 30 mg PO Q12H 10/11/18 Medical Decision Making - Diagnostics Imaging Results: Imaging Impressions Abdomen CT 10/11/18 10:13 Impression: 1. Possibly increased compressions of T8 and T10 since May 2018. Consider MRI to assess for bone marrow edema. 2. Large right lower pole thyroid mass. Ultrasound is recommended. 3. Apparent right subclavian artery does this patient have any chronic dysphasia ? 4. Coronary artery disease 5. Small hiatal hernia. 2. CT Scan of the Abdomen and Pelvis (With Contrast-dual phase) 11:08 AM Clinical Indications: Trauma. Extended study. Technique: 94 mL of Isovue 300 were given intravenously by machine power injection first during the arterial phase and then after a delay to evaluate the portal venous phase.. Multidetector helical CT imaging was performed from the diaphragm to the symphysis pubis. Dose reduction techniques were utilized. Comparison: CT abdomen and pelvis June 30, 2018 and April 04, 2016 Findings: Abdomen: An intact left lower abdominal wall colostomy is present. The liver and spleen are normal without evidence of laceration or subcapsular hematoma formation. The gallbladder and pancreas look normal. The kidneys do not show evidence for laceration, cortical contusion, or obstruction. There is no free air or free fluid. There is no arterial extravasation. Pelvis: There is an intrinsically dense, partially calcified abnormality in the left adnexa measuring approximately 17 x 12 mm. This does not change between the arterial phase and the delayed phase and is not significantly changed in size since June 2018. It has been reportedly present since 2015 and felt to represent a calcified pedunculated uterine fibroid. There is no adjacent free fluid The urinary bladder is unremarkable. No free fluid in the pelvis. There is an unremarkable anastomosis in the mid sigmoid consistent with prior surgery for diverticulitis. Bowel loops are normal. There is mild degenerative narrowing with vacuum phenomenon and mild spondylolisthesis at L4-L5. No acute lumbar, hip or pelvic fracture is identified. Impression: 1. No acute posttraumatic abnormality in the abdomen or pelvis. Is also discussed with HERMINIO Quintanilla at 12:10 PM. Final results are concordant with the preliminary interpretation. General information for patients regarding this examination can be found at [email or web address]. If you have questions or comments about this report, please contact me at (hospital) or [phone] (cell). Cervical Spine CT 10/11/18 10:13 Impression: Negative noncontrast CT of the head with no intracranial posttraumatic sequela identified. 2. CT Cervical Spine Without Contrast History: Trauma. Patient found down, neck pain Technique: Multi-slice ultrathin single breath-hold helical CT through the neck from the skull base through the thoracic inlet without contrast. Soft tissue and bone window evaluation is performed. Sagittal and coronal reconstructions are obtained. Dose reduction techniques were utilized. Findings: There are mild superior endplate compressions of C7, T1, T2 and T3, greatest at T3. Alignment is anatomic. No higher cervical fracture or malalignment is identified. Disk spaces are well maintained, except for moderate degenerative narrowing of the C5-C6 level.. Facets are normally aligned and are intact. The skull base - C1 and C1-C2 relationships are normally aligned. 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 The odontoid process is intact. There is no evidence of a prevertebral or epidural hematoma. The cervical thoracic junction is normally aligned. Incidentally noted is a large hypodense mass in the lower pole of the right thyroid gland measuring 2.7 x 1.4 x at least 2.4 cm. Impression:1. Several mild compressions described above, age-indeterminate. Recommend MRI of the cervical thoracic junction to assess for bone marrow edema. 2. Large right thyroid mass. Ultrasound is recommended. Results discussed with HERMINIO Quintanilla at 11:47 AM. General information for patients regarding this examination can be found at [email or web address]. If you have questions or comments about this report, please contact me at (hospital) or [phone] (cell). Chest CT 10/11/18 10:13 Impression: 1. Possibly increased compressions of T8 and T10 since May 2018. Consider MRI to assess for bone marrow edema. 2. Large right lower pole thyroid mass. Ultrasound is recommended. 3. Apparent right subclavian artery does this patient have any chronic dysphasia ? 4. Coronary artery disease 5. Small hiatal hernia. 2. CT Scan of the Abdomen and Pelvis (With Contrast-dual phase) 11:08 AM Clinical Indications: Trauma. Extended study. Technique: 94 mL of Isovue 300 were given intravenously by machine power injection first during the arterial phase and then after a delay to evaluate the portal venous phase.. Multidetector helical CT imaging was performed from the diaphragm to the symphysis pubis. Dose reduction techniques were utilized. Comparison: CT abdomen and pelvis June 30, 2018 and April 04, 2016 Findings: Abdomen: An intact left lower abdominal wall colostomy is present. The liver and spleen are normal without evidence of laceration or subcapsular hematoma formation. The gallbladder and pancreas look normal. The kidneys do not show evidence for laceration, cortical contusion, or obstruction. There is no free air or free fluid. There is no arterial extravasation. Pelvis: There is an intrinsically dense, partially calcified abnormality in the left adnexa measuring approximately 17 x 12 mm. This does not change between the arterial phase and the delayed phase and is not significantly changed in size since June 2018. It has been reportedly present since 2014 and felt to represent a calcified pedunculated uterine fibroid. There is no adjacent free fluid The urinary bladder is unremarkable. No free fluid in the pelvis. There is an unremarkable anastomosis in the mid sigmoid consistent with prior surgery for diverticulitis. Bowel loops are normal. There is mild degenerative narrowing with vacuum phenomenon and mild spondylolisthesis at L4-L5. No acute lumbar, hip or pelvic fracture is identified. Impression: 1. No acute posttraumatic abnormality in the abdomen or pelvis. Is also discussed with HERMINIO Quintanilla at 12:10 PM. Final results are concordant with the preliminary interpretation. General information for patients regarding this examination can be found at [email or web address]. If you have questions or comments about this report, please contact me at (hospital) or [phone] (cell). Head CT 10/11/18 10:13 Impression: Negative noncontrast CT of the head with no intracranial posttraumatic sequela identified. 2. CT Cervical Spine Without Contrast History: Trauma. Patient found down, neck pain Technique: Multi-slice ultrathin single breath-hold helical CT through the neck from the skull base through the thoracic inlet without contrast. Soft tissue and bone window evaluation is performed. Sagittal and coronal reconstructions are obtained. Dose reduction techniques were utilized. Findings: There are mild superior endplate compressions of C7, T1, T2 and T3, greatest at T3. Alignment is anatomic. No higher cervical fracture or malalignment is identified. Disk spaces are well maintained, except for moderate degenerative narrowing of the C5-C6 level.. Facets are normally aligned and are intact. The skull base - C1 and C1-C2 relationships are normally aligned. 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 The odontoid process is intact. There is no evidence of a prevertebral or epidural hematoma. The cervical thoracic junction is normally aligned. Incidentally noted is a large hypodense mass in the lower pole of the right thyroid gland measuring 2.7 x 1.4 x at least 2.4 cm. Impression:1. Several mild compressions described above, age-indeterminate. Recommend MRI of the cervical thoracic junction to assess for bone marrow edema. 2. Large right thyroid mass. Ultrasound is recommended. Results discussed with HERMINIO Quintanilla at 11:47 AM. General information for patients regarding this examination can be found at [email or web address]. If you have questions or comments about this report, please contact me at ([facility]) or [phone] (cell). Hand X-Ray 10/11/18 10:14 Impression: Negative. Hand X-Ray 10/11/18 10:14 Impression: Negative. Tibia/Fibula X-Ray 10/11/18 10:14 Impression: No posttraumatic abnormality identified. ED Course/Re-evaluation: 10:21 a.m.: Ambulance med arrived by myself. Case discussed with secondary supervising physician Dr. Usman Meyer in the ER. Patient has extensive medical history including chronic warfarin anticoagulation. She is currently exhibiting altered mentation. Plan will be diagnostic studies including CT trauma scan as she is complaining of pain to her head, unable to rule out cervical injury, is complaining of chest pain and abdominal pain with no visible trauma. 12:20 p.m.: Re-evaluation. Discussed with the patient her friend her diagnostic results. Age-indeterminate C7 fracture and multiple thoracic compression fractures. Patient is in a cervical collar. Interviewed the patient. She remains altered at this time 12:30 p.m.: Consultation with hospitalist Dr. Alonso who will admit patient. 12:42 p.m.: Consultation with Dr. Olsen, Neurosurgery who will consult regarding the patient's cervical and thoracic fracture. Patient remains in a cervical collar. - Data Points Laboratory Results: Laboratory Results 10/11/18 10:45 10/11/18 10:45 10/11/18 10/11/18 10/11/18 10:47 10:45 10:45 WBC RBC Hgb POC Hgb Hct POC Hct MCV MCH MCHC RDW Plt Count MPV Neut % (Auto) Lymph % (Auto) Atkinson % (Auto) Eos % (Auto) Baso % (Auto) Nucleat RBC Rel Count Absolute Neuts (auto) Absolute Lymphs (auto) Absolute Monos (auto) Absolute Eos (auto) Absolute Basos (auto) Absolute Nucleated RBC Immature Gran % Immature Gran # PT 27.8 SEC H SEC (12.0-15.0) INR 2.60 H (0.83-1.16) APTT 35.8 SEC SEC (23.0-38.0) POC Sodium Sodium 134 mEq/L L mEq/L (135-145) POC Potassium Potassium 3.7 mEq/L mEq/L (3.5-5.2) POC Chloride Chloride 98 mEq/L mEq/L (97-110) Carbon Dioxide 26 mEq/l mEq/l (22-31) Anion Gap 10 mEq/L mEq/L (6-14) POC BUN BUN 19 mg/dL mg/dL (7-23) Creatinine 0.7 mg/dL mg/dL (0.6-1.0) POC Creatinine Estimated GFR > 60 Glucose 122 mg/dL H mg/dL (70-100) POC Glucose Calcium 9.7 mg/dL mg/dL (8.5-10.4) Total Bilirubin 0.7 mg/dL mg/dL (0.1-1.4) Conjugated Bilirubin 0.2 mg/dL mg/dL (0.0-0.5) Unconjugated Bilirubin 0.5 mg/dL mg/dL (0.0-1.1) AST 35 IU/L IU/L (14-46) ALT 24 IU/L IU/L (9-52) Alkaline Phosphatase 112 IU/L IU/L (38-126) Creatine Kinase 216 IU/L H IU/L (0-156) CK-MB (CK-2) Fraction 3.04 ng/mL ng/mL (0.00-4.55) CK-MB (CK-2) % 1.4 % % (0.0-4.0) Creatine Kinase Interp NEGATIVE (NEGATIVE) POC Troponin I Total Protein 8.9 g/dL H g/dL (6.3-8.2) Albumin 4.9 g/dL g/dL (3.5-5.0) Lipase 22 IU/L L IU/L (23-300) Urine Color YELLOW Urine Appearance HAZY Urine pH 5.0 (5.0-7.5) Ur Specific [place] 1.017 (1.002-1.030) Urine Protein NEGATIVE (NEGATIVE) Urine Ketones TRACE H (NEGATIVE) Urine Blood 1+ H (NEGATIVE) Urine Nitrate NEGATIVE (NEGATIVE) Urine Bilirubin NEGATIVE (NEGATIVE) Urine Urobilinogen NEGATIVE EU EU (0.2-1.0) Ur Leukocyte Esterase NEGATIVE (NEGATIVE) Urine RBC 1-3 /hpf /hpf (0-3) Urine WBC 1-3 /hpf /hpf (0-3) Ur Epithelial Cells TRACE /lpf /lpf (NONE-1+) Urine Bacteria 1+ /hpf H /hpf (NONE SEEN) Urine Mucus TRACE /lpf /lpf (NONE-1+) Urine Glucose NEGATIVE (NEGATIVE) Acetaminophen < 10 mcg/mL L mcg/mL (10-30) Ethyl Alcohol < 10 mg/dL mg/dL (0-10) 10/11/18 10/11/18 10/11/18 10:45 10:44 10:41 WBC 13.96 10^3/uL H 10^3/uL (3.80-9.50) RBC 5.11 10^6/uL 10^6/uL (4.18-5.33) Hgb 13.4 g/dL g/dL (12.6-16.3) POC Hgb 15.3 gm/dL gm/dL (12.6-16.3) Hct 41.3 % % (38.0-47.0) POC Hct 45 % % (38-47) MCV 80.8 fL L fL (81.5-99.8) MCH 26.2 pg L pg (27.9-34.1) MCHC 32.4 g/dL g/dL (32.4-36.7) RDW 13.9 % % (11.5-15.2) Plt Count 372 10^3/uL 10^3/uL (150-400) MPV 8.5 fL L fL (8.7-11.7) Neut % (Auto) 82.9 % H % (39.3-74.2) Lymph % (Auto) 9.9 % L % (15.0-45.0) Atkinson % (Auto) 5.3 % % (4.5-13.0) Eos % (Auto) 0.1 % L % (0.6-7.6) Baso % (Auto) 0.4 % % (0.3-1.7) Nucleat RBC Rel Count 0.0 % % (0.0-0.2) Absolute Neuts (auto) 11.58 10^3/uL H 10^3/uL (1.70-6.50) Absolute Lymphs (auto) 1.38 10^3/uL 10^3/uL (1.00-3.00) Absolute Monos (auto) 0.74 10^3/uL 10^3/uL (0.30-0.80) Absolute Eos (auto) 0.01 10^3/uL L 10^3/uL (0.03-0.40) Absolute Basos (auto) 0.05 10^3/uL 10^3/uL (0.02-0.10) Absolute Nucleated RBC 0.00 10^3/uL 10^3/uL (0-0.01) Immature Gran % 1.4 % H % (0.0-1.1) Immature Gran # 0.20 10^3/uL H 10^3/uL (0.00-0.10) PT INR APTT POC Sodium 136 mEq/L mEq/L (135-145) Sodium POC Potassium 3.4 mEq/L mEq/L (3.3-5.0) Potassium POC Chloride 97 mEq/L mEq/L (97-110) Chloride Carbon Dioxide Anion Gap POC BUN 18 mg/dL mg/dL (7-23) BUN Creatinine POC Creatinine 0.7 mg/dL mg/dL (0.6-1.0) Estimated GFR Glucose POC Glucose 124 mg/dL H mg/dL (70-100) Calcium Total Bilirubin Conjugated Bilirubin Unconjugated Bilirubin AST ALT Alkaline Phosphatase Creatine Kinase CK-MB (CK-2) Fraction CK-MB (CK-2) % Creatine Kinase Interp POC Troponin I 0.03 ng/mL ng/mL (0.00-0.08) Total Protein Albumin Lipase Urine Color Urine Appearance Urine pH Ur Specific Bon[place] Urine Protein Urine Ketones Urine Blood Urine Nitrate Urine Bilirubin Urine Urobilinogen Ur Leukocyte Esterase Urine RBC Urine WBC Ur Epithelial Cells Urine Bacteria Urine Mucus Urine Glucose Acetaminophen Ethyl Alcohol Medications Given: Discontinued Medications Ondansetron HCl (Zofran Odt) 4 mg PO EDNOW ONE Stop: 10/11/18 10:35 Last Admin: 10/11/18 10:35 Dose: 4 mg Point of Care Test Results: Chemistry 10/11/18 10/11/18 10:44 10:41 POC Sodium 136 mEq/L mEq/L (135-145) POC Potassium 3.4 mEq/L mEq/L (3.3-5.0) POC Chloride 97 mEq/L mEq/L (97-110) POC BUN 18 mg/dL mg/dL (7-23) POC Creatinine 0.7 mg/dL mg/dL (0.6-1.0) POC Glucose 124 mg/dL H mg/dL (70-100) POC Troponin I 0.03 ng/mL ng/mL (0.00-0.08) ISTAT H&H 10/11/18 10:44 POC Hgb 15.3 gm/dL gm/dL (12.6-16.3) POC Hct 45 % % (38-47) Departure - Departure Disposition: [facility] Acute Clinical Impression: Altered mental status Qualifiers: Altered mental status type: unspecified Qualified Code(s): R41.82 - Altered mental status, unspecified C7 cervical fracture Qualifiers: Encounter type: initial encounter Fracture type: closed Fracture morphology: other fracture Fracture alignment: nondisplaced Qualified Code(s): S12.691A - Other nondisplaced fracture of seventh cervical vertebra, initial encounter for closed fracture Condition: Fair
[2018-10-11] MEDS ORDERED: IOPAMIDOL (ISOVUE-300) 100 ML BTL ONE (10:18)
[2018-10-11] MEDS ORDERED: ONDANSETRON DISINTEGRATING 4 MG TAB ONE (10:32)
[2018-10-11] MEDS ORDERED: ONDANSETRON DISINTEGRATING 4 MG TAB PO ONE (10:34)
--- NOTE | 2018-10-11 10:58 | CPEKG ---
Test Reason : OPEN Blood Pressure : / mmHG Vent. Rate : 083 BPM Atrial Rate : 082 BPM P-R Int : 158 ms QRS Dur : 094 ms QT Int : 393 ms P-R-T Axes : 040 -21 061 degrees QTc Int : 462 ms Sinus rhythm Borderline left axis deviation Confirmed by Usman Meyer ([id number]) on 10/11/2018 10:58:14 AM Referred By: Confirmed By:Usman Meyer
[2018-10-11 10:59] LABS: PLATELET COUNT 372 10^3/uL (150-400)
[2018-10-11 11:18] LABS: INR 2.6 (0.83-1.16); PROTIME(PATIENT) 27.8 SEC (12.0-15.0)
[2018-10-11 11:21] LABS: CREATINE KINASE 216 IU/L (0-156)
--- NOTE | 2018-10-11 12:40 | ASMTCAGE ---
CAGE Additional Comments Unable to assess. Patient unable to articulate Date Signed: 10/11/2018 11:20 AM Electronically Signed By:Stacey Mehta RN
--- NOTE | 2018-10-11 12:42 | ASMTCMCOM ---
CM Note CM Note Notes: patient presents to the ED per EMS. See ED report for details. This CM has met with patient's -riend/housemate/Misty SANCHEZ Misty states that patient had been progressing well since her surgery and last admission in June (see chart from previous admission). Two changes that Misty notes are: 1). Patient stopped taking her blood pressure medication "a while ago" that was prescribed per Dr. Elyse Marmolejo at [facility] 2). Patient started a new blood pressure medication this week which was prescribed per Caridad Becerra NP . Misty states that patient did not feel well after taking this new BP medication earlier this week, informed Caridad, and was instructed to stop taking it. Misty could not explain to this CM how/why patient was seeing a new provider for BP meds. Per Misty, patient's PCP remains Dr. Marmolejo at [facility] Misty explains that she usually sets up patient's medication "one day at a time", and that Misty keeps the medication supply. However, as patient has been doing much better, patient requested to have the medication supply (as of yesterday). Misty found patient's medication bottles scattered all over the floor when she found patient this morning. patient remians arousable but unable to maintain a conversation at this time. CM to follow and available to assist with discharge planning Date Signed: 10/11/2018 11:42 AM Electronically Signed By:Stacey Mehta RN
[2018-10-11] MEDS ORDERED: SUMAtriptan 20 MG/SPRAY BTL NS PRN (14:58)
[2018-10-11] MEDS ORDERED: ACETAMINOPHEN 325 MG TAB PO PRN (14:59)
[2018-10-11] MEDS ORDERED: ONDANSETRON 4 MG/2 ML VIAL IVP PRN (14:59)
[2018-10-11] MEDS: NS 1,000 ML IV SCH (15:28)
[2018-10-11] MEDS: oxyCODONE CR 30 MG TAB PO SCH (15:28)
[2018-10-11] MEDS ORDERED: WARFARIN SODIUM 2.5 MG TAB PO SCH (16:00)
--- NOTE | 2018-10-11 16:06 | GHP ---
DATE OF ADMISSION: 10/11/2018 CHIEF COMPLAINT: Confusion. HISTORY: Elyse is a 73-year-old female who comes in after a friend found her very confused. Her fri end who lives with her works long 12 hour days and the patient texted her while she was at work late last night stating "I fell." When her friend got home from work, she found her on the floor of the b edroom with her head stuck between the bed and the nightstand, very confused, speaking nonsensically, complaining of pain "everywhere." 911 was called. Reportedly oxycodone 10 mg 90 tablets was refill ed 4 days ago and there are only 4 tablets left in the bottle. The patient and her friend adamantly denied that there was any narcotic mis-administration saying that they were only 4 tabs in the bottle because there were pills strewn all over the room that were spilled by the patient. She started a n ew blood pressure medicine a few days ago which caused her nausea and dizziness shortly after initiat ion. Post fall she denies any weakness, but she does have pain in the back of her neck. She has new urine incontinence and her ostomy including the wafer were ripped off during the fall and now have b een hastily replaced. She was doing well post recent major abdominal surgery including new ostomy pl acement in June. PAST MEDICAL HISTORY: 1. Submassive pulmonary embolus and DVT. 2. 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 3. Osteoporosis with compression fractures. 4. Continuous narcotic dependency due to postherpetic neuralgia. 5. Hypertension. MEDICATIONS: Please see computer record for full detailed list. ALLERGIES: Cipro. SOCIAL HISTORY: Distant smoking. No alcohol. She lives with her friend. 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 REVIEW OF SYSTEMS: Complete review of systems obtained. Review of systems negative regarding consti tutional, HEENT, GI, pulmonary, cardiovascular, , hematology, skin, musculoskeletal, endocrine, psy ch, except for negatives and positives as in HPI. FAMILY HISTORY: Reviewed and noncontributory to presenting complaint. PHYSICAL EXAMINATION: Well-developed, well-nourished female, in no distress. Temperature 36.9, puls e 87, blood pressure 170/91, saturating 92% on room air. Eyes: Normal conjunctivae. Pupils equally react to light. ENT: Normal ears and nose. Hearing intact. Normal teeth. Oropharynx moist. NEC K: Trachea midline. No thyromegaly. She is in a cervical collar. CHEST: Normal effort. Lungs ar e clear to auscultation bilaterally. CARDIOVASCULAR SYSTEM: Regular rate and rhythm. No murmur. N o lower extremity edema. ABDOMEN: Soft, nontender. No hepatosplenomegaly. Ostomy looks good. MUS CULOSKELETAL: No cyanosis or clubbing. Strength 5/5 upper and lower extremities. NEURO: Cranial n erves 2-12 intact. Normal sensation to light touch. PSYCH: Alert and oriented x2. She thinks it i s 1972, but she is awake, alert, and conversant. Some insight into her situation, understands that s he is confused. LABORATORY DATA: White count 13.96, hematocrit 41.3, platelets 372. Sodium 134, potassium 3.7, chlo ride 98, bicarb 26, BUN 19, creatinine 0.7, glucose 122. LFTs are negative. INR is 2.6. EKG viewed by me. My personal interpretation: Normal sinus rhythm. No ST-T wave changes. Head CT is negativ e. CT scan of the chest, abdomen, and pelvis for trauma showed increased worsening compression fract ures at T8 and T10, as well as compression fractures noted at C7, T1, T2, T3 of unclear chronicity. She has an incidental thyroid mass. ASSESSMENT/PLAN: 1. Metabolic encephalopathy. Possibly toxic encephalopathy due to questionable narcotic over admini stration, although her and her roommate adamantly deny her taking anything other than what is prescri bed. 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 We will check a TSH. We will rule out infection given her elevated white blood cell count. 2. Multilevel compression fractures. She is currently in a neck brace. Neurosurgery has been consu lted. Unclear to what may be acute versus chronic. She will probably need an MRI, but we will defer to Neurosurgery. 3. Thyroid mass. We will check a TSH and a thyroid ultrasound. 4. History of pulmonary embolus and deep vein thrombosis. Her INR is therapeutic on presentation. 5. Recent colostomy done for diverticulitis with abscess and fistula to her uterus and bladder. Her urinalysis is now negative. CT scan of the abdomen and pelvis is negative. She appears to be doing well from this standpoint. 6. Continuous narcotic dependency secondary to postherpetic neuralgia. Her chronic pain has been wo rsened due to the fact her new ostomy was placed through an area of skin that was affected by the ivana ngles. We will continue her home narcotics and monitor. 7. Hypertension. We will continue her Prazosin. We will watch for dizziness. 8. Deep vein thrombosis prophylaxis. She is therapeutic on warfarin. CODE STATUS: Full. ADMISSION STATUS: We will admit to inpatient, as she is medically complex. /[id number]/MODL
--- NOTE | 2018-10-11 16:40 | PDMN ---
Medical Necessity Medical necessity: Pt meets inpt criteria per MD order and Neurology GRG, 73 y/ o w/metabolic encephalopathy, possibly toxic encephalopathy due to questionable narcotic overdose, multi-level compression fx's, pt was found on floor in room by friend. PMH includes PE, DVT, recent colostomy for diverticulitis w/abscess and fistula to her uterus and bladder, chronic post-herpetic pain- worsensed w/ new ostomy, thyroid mass. Anticipate>2MN for eval/treatment of above issues in medically complex pt.
[2018-10-11] MEDS: oxyCODONE IR 5 MG TAB PO PRN (20:15)
[2018-10-11] MEDS ORDERED: PRAZOSIN HCL 1 MG CAP PO SCH (21:00)
[2018-10-12] MEDS: NS 1,000 ML IV SCH (02:04)
[2018-10-12] MEDS: oxyCODONE CR 30 MG TAB PO SCH ×2 (03:29→16:05)
[2018-10-12 04:39] LABS: PLATELET COUNT 291 10^3/uL (150-400)
[2018-10-12 04:53] LABS: INR 3.8 (0.83-1.16); PROTIME(PATIENT) 37.1 SEC (12.0-15.0)
[2018-10-12] MEDS: oxyCODONE IR 5 MG TAB PO PRN ×2 (08:00→16:05)
--- NOTE | 2018-10-12 08:14 | GCON ---
DATE OF CONSULTATION: 10/11/2018 CONSULTING SERVICE: Emergency Medicine EMERGENCY PHYSICIAN: Neurosurgery REASON FOR CONSULT: Multiple age-indeterminate cervical and thoracic compression fractures. HISTORY OF PRESENT ILLNESS: The patient is a 73-year-old female who presented to our emergency depar tment today after a friend found her at home, very confused. Apparently, her friend also lives with her and works long days and did get a text from the patient last night stating I fell. She apparentl y came home from work and found the patient on the floor of the bedroom with her head stuck between t he bed and the nightstand, confused, speaking nonsensically, and complaining of pain everywhere. She apparently only had 4 tablets of oxycodone in a pill bottle, but had been prescribed 90 only several days before. The patient's friend claims this is because the pills were scattered around her bedroo m, but we are not entirely sure of the complete story here. She also started a new blood pressure me dicine a few days ago, which caused her nausea and dizziness after initiation of this new medicine. She was suggs-scanned and found to have multiple cervical and thoracic compression deformities of unkno wn age. Again on my exam, she really cannot provide a good history or really tell me what is wrong o r where she is having pain. 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 ALLERGIES: Cipro. CODE STATUS: Full. SOCIAL HISTORY: Remote smoker. No alcohol. 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 No hi story of illicit drugs. FAMILY HISTORY: Reviewed and noncontributory to this presenting issue. REVIEW OF SYSTEMS: Ten points are attempted, but difficult to obtain due to the patient's mental sta tus. PHYSICAL EXAMINATION: VITAL SIGNS: Afebrile, heart rate 87, blood pressure 170/91, saturating 92% o n room air. NEUROLOGIC: Awake and alert. Will give me her name, but no other answers to any orient ation questions. She will follow commands intermittently, but is not very cooperative. No obvious f ocality. She is in a cervical collar that does not fit her very well. Gait is deferred. LABORATORY/IMAGING: White count 14, hematocrit 41, platelets 372. Sodium 134, potassium 3.7, BUN 19 , creatinine 0.7, glucose 122. LFTs are normal. INR is 2.6. I reviewed the patient's CT of the cervical spine and a CT of the chest, abdomen, and pelvis and agr ee that she has some mild compression changes at C7, T1, T2, T3, T8 and T10 of unknown chronicity. T he T8 and T10 compression deformities are worse than the others, which are very mild and subtle and c ould be interpreted as normal by different radiologist. DISCUSSION/DECISION-MAKIN-year-old female found by her friend/roommate with altered mental stat us of unknown etiology, possibly related to medications at home earlier today, brought in and unable to provide a very good history or participate very well with her physical exam, but was complaining o f pain everywhere. She was suggs-scanned and the radiologist has called C7, T1, T2, T3, T8, and T10 c ompression deformities of unknown age. The higher levels are very subtle and could easily be interpr eted as normal by in my opinion. The T8 and T10 findings appear to be chronic in my opinion. I do n ot think that we should rivers to get an MRI in this case as I do not know what information this could possibly provide to change our management. I think we need to give the patient a tincture of time, c ontinue to ask her probing questions regarding her symptoms before we plan any bracing or anything of that nature either. She does appear to have a reassuring neurologic exam other than altered mental status. We are following along, but overall even if these fractures are acute, they are not concerni ng in regard to my belief that they will require surgical repair. Altered mental status workup per Ji knowles. Thanks for this consult. /[id number]/MODL
--- NOTE | 2018-10-12 10:05 | NEUSURGPN ---
Assessment/Plan: 73 yo female with acute or chronic compression fractures at C7, T1, T2, T3, T8, and T10 Slight tenderness to palpation upper thoracic region - neuro stable - no surgical intervention - may wear soft collar as needed for comfort. Hard collar not fitting well and patient's pain minimal - PT/OT - stable from neurosurgery standpoint for discharge Discussed with Dr. Cassidy. Subjective: Admits to some pain at the upper thoracic region. Objective: Awake. Alert. PERRL. EOMI Facial expression symmetrical Muscle strength full at 5/5 Sensation intact - Physician Discussed Patient with Dr.: Cassidy Neurosurgery Physical Exam - Vitals, I&O, Labs I and O 10/11/18 10/12/18 10/13/18 05:59 05:59 05:59 Intake Total 1248 220 Balance 1248 220 Weight 55.111 kg Intake: Oral (ml) 120 IV Intake (ml) 1128 220 Other: Number of Voids Bedside Commode 2 Vital Signs Temp Pulse Resp BP Pulse Ox 36.7 C 84 14 118/55 L 90 L 10/12/18 08:00 10/12/18 08:00 10/12/18 08:00 10/12/18 08:00 10/12/18 08:00 Laboratory Results 10/12/18 03:36 ICD10 Worksheet Patient Problems: Problems Problem Status Onset Altered mental status Acute C7 cervical fracture Acute Acute diverticulitis Acute Bladder wall thickening Acute Dehydration Acute Diarrhea Acute Diverticulitis Acute Diverticulitis of intestine with abscess Acute Gastroenteritis and colitis, viral Acute Hypokalemia Acute Hyponatremia Acute Pulmonary embolism Acute Warfarin-induced coagulopathy Acute Post herpetic neuralgia Chronic
[2018-10-12] MEDS: POTASSIUM CL 10 MEQ TAB PO SCH (10:12)
[2018-10-12] MEDS ORDERED: LORazepam 2 MG/ML INJ IVP ONE (13:40)
--- NOTE | 2018-10-12 16:51 | ASMTCMCOM ---
CM Note CM Note Notes: 10/12/2018 Case Management Note Chart reviewed. Please see initial ED case management note. Discussed with SLT who is recommending 24 hour supervision and outpatient speech therapy. [facility] is listed as room mate Misty [phone]. There is not an electronic or hard copy of [facility] paperwork in the chart. Pt has multiple admissions to [facility] in 2018. Recent discharge on 07/14 was with [facility] and [facility]. Faxed referral to [facility]. PT evals pending. Case Management d/c poc: to be determined. Case Management to follow. Date Signed: 10/12/2018 04:51 PM Electronically Signed By:Sandra Queen RN
--- NOTE | 2018-10-12 16:59 | HOSPPROG ---
Hospitalist Progress Note Assessment/Plan: * Metabolic encephalopathy -remains very confused, nowhere near baseline -check MRI brain -? concussion as suspect she hit head when she fell * Compression fractures -per neurosurgery these are minor and not concerning -only needs to wear soft collar for comfort * Continuous narcotic dependency for post-herpetic neuralgia -at baseline stable doses - doubt contributing to AMS * Recent ostomy placement for diverticular disease with absces/fistula -abd CT looks good * Thyroid mass -US pending * h/o PE/DVT -continue warfarin * HTN -recent started Prazosin - immediately felt terrible with it and requests DC med -try lisinopril Subjective: Patient denies complaints. I was approached by her friend Misty who was very distressed, saying patient is far from her ususal self. Very beligerant and angry, confused, doesn't know where she is. Misty can not care for her at home in this condition. Has not gotten out of bed. Objective: Vital Signs Temp Pulse Resp BP Pulse Ox 36.7 C 85 18 117/67 95 10/12/18 16:00 10/12/18 16:00 10/12/18 16:00 10/12/18 16:00 10/12/18 16:00 Laboratory Results 10/12/18 03:36 10/11/18 10/12/18 10/13/18 05:59 05:59 05:59 Intake Total 1248 220 Balance 1248 220 PT 37.1 SEC (12.0-15.0) H 10/12/18 03:36 INR 3.80 (0.83-1.16) H 10/12/18 03:36 - Time Spent With Patient Time Spent with Patient: greater than 35 minutes Time Spent with Patient: Greater than 35 minutes spent on this patients care, greater than 50% of time spent counseling, educating, and coordinating care regarding the above mentioned plan. - Physical Exam Constitutional: no apparent distress, appears nourished, not in pain Cardiovascular: regular rate and rhythym, no murmur, rub, or gallop Respiratory: no respiratory distress, no rales or rhonchi, clear to auscultation Gastrointestinal: normoactive bowel sounds, soft, non-tender abdomen, no palpable masses Skin: no rashes or abrasions, no fluctuance, no induration Neurologic: No AAOx3 Psychiatric: encephalopathic, poor insight, poor judgement, poor memory, No interacting appropriately, No thought process linear, No agitated ICD10 Worksheet Patient Problems: Problems Problem Status Onset Altered mental status Acute C7 cervical fracture Acute Acute diverticulitis Acute Bladder wall thickening Acute Dehydration Acute Diarrhea Acute Diverticulitis Acute Diverticulitis of intestine with abscess Acute Gastroenteritis and colitis, viral Acute Hypokalemia Acute Hyponatremia Acute Pulmonary embolism Acute Warfarin-induced coagulopathy Acute Post herpetic neuralgia Chronic
[2018-10-12] MEDS ORDERED: GADOBUTROL 10 ML VIAL IVP ONE (17:03)
[2018-10-13] MEDS: oxyCODONE CR 30 MG TAB PO SCH (03:22)
[2018-10-13 04:38] LABS: PLATELET COUNT 251 10^3/uL (150-400)
[2018-10-13 04:44] LABS: INR 3.41 (0.83-1.16); PROTIME(PATIENT) 34.2 SEC (12.0-15.0)
[2018-10-13] MEDS: POTASSIUM CL 10 MEQ TAB PO SCH (07:56)
[2018-10-13] MEDS: oxyCODONE IR 5 MG TAB PO PRN (07:56)
[2018-10-13] MEDS: LISINOPRIL 10 MG TAB PO SCH ×2 (07:58→12:25)
--- NOTE | 2018-10-13 08:10 | NEUSURGPN ---
Assessment/Plan: 73 yo female with acute or chronic compression fractures at C7, T1, T2, T3, T8, and T10 Slight tenderness to palpation upper thoracic paraspinal region - neuro stable - no surgical intervention - may wear soft collar as needed for comfort. Hard collar not fitting well and patient's pain minimal - PT/OT - stable from neurosurgery standpoint for discharge - will sign off and follow peripherally, please contact us with any further questions/concerns Discussed with Dr. Cassidy. Subjective: Pain level is tolerable this morning. Located at the left thoracic paraspinal region. Objective: Awake. Alert. PERRL. EOMI Facial expression symmetrical Muscle strength full at 5/5 Sensation intact - Physician Discussed Patient with Dr.: Cassidy Neurosurgery Physical Exam - Vitals, I&O, Labs I and O 10/12/18 10/13/18 10/14/18 05:59 05:59 05:59 Intake Total 1248 520 Balance 1248 520 Weight 55.111 kg Intake: Oral (ml) 120 300 IV Intake (ml) 1128 220 Other: Output Comment Bedside Commode from colostomy Number of Voids Bedside Commode 2 1 Number of Stools Bedside Commode 1 Vital Signs Temp Pulse Resp BP Pulse Ox 36.3 C 81 16 147/87 H 92 10/13/18 07:40 10/13/18 07:40 10/13/18 07:40 10/13/18 07:40 10/13/18 07:40 Laboratory Results 10/13/18 04:10 ICD10 Worksheet Patient Problems: Problems Problem Status Onset Altered mental status Acute C7 cervical fracture Acute Acute diverticulitis Acute Bladder wall thickening Acute Dehydration Acute Diarrhea Acute Diverticulitis Acute Diverticulitis of intestine with abscess Acute Gastroenteritis and colitis, viral Acute Hypokalemia Acute Hyponatremia Acute Pulmonary embolism Acute Warfarin-induced coagulopathy Acute Post herpetic neuralgia Chronic
--- NOTE | 2018-10-13 11:31 | HOSPPROG ---
Hospitalist Progress Note Assessment/Plan: * Metabolic encephalopathy - brain MRI yest without infarct or acute abnormalities, non-specific white matter changes noted -? concussion / CHI from fall * Compression fractures - neurosurgery consulted, nothing operative -soft collar for comfort * Continuous opioid dependency for post-herpetic neuralgia -at baseline stable doses - doubt contributing to AMS * Recent ostomy placement for diverticular disease with absces/fistula -abd CT looks good * Thyroid mass - TSH nl, reviewed u/s 3 cm mass -outpt FNA biopsy * h/o PE/DVT -continue warfarin * HTN - recently started Prazosin, had untoward side effects and med was d/c'd -BP's improved on lisinopril * DVT PPLX - on coumadin * Dispo - cont inpt Objective: Vital Signs Temp Pulse Resp BP Pulse Ox 36.7 C 70 18 147/77 H 90 L 10/13/18 11:11 10/13/18 11:11 10/13/18 11:11 10/13/18 11:11 10/13/18 11:11 Laboratory Results 10/13/18 04:10 10/12/18 10/13/18 10/14/18 05:59 05:59 05:59 Intake Total 1248 520 Balance 1248 520 PT 34.2 SEC (12.0-15.0) H 10/13/18 04:10 INR 3.41 (0.83-1.16) H 10/13/18 04:10 ICD10 Worksheet Patient Problems: Problems Problem Status Onset Altered mental status Acute C7 cervical fracture Acute Acute diverticulitis Acute Bladder wall thickening Acute Dehydration Acute Diarrhea Acute Diverticulitis Acute Diverticulitis of intestine with abscess Acute Gastroenteritis and colitis, viral Acute Hypokalemia Acute Hyponatremia Acute Pulmonary embolism Acute Warfarin-induced coagulopathy Acute Post herpetic neuralgia Chronic
--- NOTE | 2018-10-13 11:53 | PDIAF ---
- Diagnosis Diagnosis: chronic pain, compression fractures Code Status: Full Code - Medication Management Discharge Medications: electronically signed and located in the Home Medication List. - Orders Services needed: Home Care, Registered Nurse, Physical Therapy, Occupational Therapy Home Care Face to Face: I certify that this patient was under my care and that I had the required [id number] encounter meeting the encounter requirements on the discharge day. My findings support the fact that the patient is homebound as defined in Home Care Face to Face Continued: CMS Chapter 7 Medicare Benefits Manual 30.1.1 , The condition of the patient is such that there exists a normal inability to leave home and consequently, leaving home would require a considerable and taxing effort. Isolation Type: None Diet Recommendation: sodium restricted Additional Instructions: I referred you to Dr. Clifton, tattoo technician, to discuss an aspiration biopsy of the thyroid nodule - Follow Up Care Current Providers and Referrals: Patient,NotPresent [Unknown] - As per Instructions Ajay Clifton MD [Medical Doctor] -
[2018-10-13 12:26] VITALS: BP 167/85
--- NOTE | 2018-10-13 12:59 | ASMTCMCOM ---
CM Note CM Note Notes: CM met with pt and Misty, her roomate and MDPOA. They have agreed that when pt returns home, Misty will resume her role of organizing and delivering pt's medications. D/C Plan: Independent with support from Misty Date Signed: 10/13/2018 12:59 PM Electronically Signed By:Tita Sy
--- NOTE | 2018-10-13 13:00 | ASMTLACE ---
[facility] Length of stay for Answers: 1 day current admission Acuity / Level of Answers: Yes Care: Did the patient have an inpatient admission? Comorbidities - select Answers: Other Notes: submassive PE with all that apply DVT, colostomy 06/2018, osteoorosis, na rco tic dependency, HTN # of Emergency department Answers: 5-8 visits in the last 6 months Social determinants Answers: History of substance abuse (ETOH, street drugs, prescription drugs, etc.) Score: 12 Date Signed: 10/13/2018 12:59 PM Electronically Signed By:Tita Sy
--- NOTE | 2018-10-13 13:52 | GDS ---
DISCHARGE DIAGNOSES: 1. Metabolic encephalopathy, resolved. 2. [id number] multilevel cervical and thoracic spine compression fractures. 3. Chronic opioid dependence. 4. Chronic pain secondary to post-herpetic neuralgia. 5. Recent ostomy placement secondary to diverticular disease with abscess and fistula, this is stabl e. 6. Thyroid mass with normal TSH, warrants outpatient fine needle aspiration biopsy. 7. History of pulmonary embolism/deep vein thrombosis. 8. Chronic anticoagulation. 9. Hypertension. CONSULTANTS: Dr. Wesly Cassidy, Neurosurgery. HISTORY: For details, please see history and physical dated October 11, 2018. In brief, the patien jess is a 73-year-old female with a history of chronic pain and chronic continuous opioid dependence as well as previous PE/DVT, and recent hospitalization for perforated diverticulitis with abscess and fi stula, who presented to the emergency department with confusion. Her friend lives with her and found her to be very confused. She apparently was found on the floor of her bedroom where she struck her head. 911 was called and she was brought to the emergency department. Head CT at that time was nega tive. Further CT imaging revealed worsening compression fractures at C7, T1, T2, T3, T8, and T10. S he is admitted to the hospital for further management. HOSPITAL COURSE: The patient was admitted to the Med/Surg unit. There was question of overuse of me dications contributing to her metabolic encephalopathy. However, she does not remember taking any ad ditional medicines. She did note feeling terrible since starting on prazosin for hypertension. This medication was discontinued and she was started on lisinopril in its place. Her blood pressures hav e come down nicely. A brain MRI was performed and revealed no evidence of infarct or acute abnormali ties. It is noted there has been some progression of nonspecific white matter changes bilaterally. Neurosurgery consult was obtained for an opinion regarding her compression fractures. No surgical in tervention was recommended. She was offered a soft cervical collar for comfort, but she wished to de isha this as she actually felt more uncomfortable with the soft collar in place. We did discuss her t hyroid goiter and I referred her to Dr. Clifton, Volleyball Commentator, for consideration of outpatient fine needle aspiration biopsy. She does have a normal TSH here of 1.5. On the day of discharge, her men tation is completely normalized. Her friend is with her and they are both very pleased with her reso lution of her symptoms. We discussed precautions regarding concussion syndrome. She was evaluated b y our Therapy team and Occupational Therapist recommended she have ongoing Home Health Care for OT an d RN to assist with medication management. DISPOSITION: The patient is discharged home in stable condition with Home Health Care services inclu arely PT, OT, RN. DISCHARGE MEDICATIONS: Please see [facility] completed outpatient medication list. New medications on discharge include lisinopril 10 mg p.o. daily, #30, no refills. Discontinued medications: Prazosin is discontinued due to untoward side effects. She will continue all other outpatient medications as previously prescribed. FOLLOWUP: 1. Follow up with Primary Care for ongoing management of hypertension and chronic pain issues. 2. Dr. Ajay Clifton, Volleyball Commentator, to discuss an aspiration biopsy of the thyroid goiter. /[id number]/MODL
--- NOTE | 2018-10-15 09:43 | ASDISCHSUM ---
Discharge Information Plan Status:Home with No Needs Medically Cleared to Leave:10/12/2018 Discharge Date:10/13/2018 12:40 PM CM D/C Disposition:Home, Routine, Self-Care ADT D/C Disposition:Home, Routine, Self-Care Projected Discharge Date:10/15/2018 11:00 AM Transportation at D/C:Friend Discharge Delay Reason: Follow-Up Date:10/15/2018 11:00 AM Discharge Slot: Final Diagnosis: Placement Information Referral Type:Palliative Care Referral ID:[id number] Provider Name:[facility] Address 1:[address] Phone Number: Address 2: Fax Number: City:[place] Selection Factors: State:[place] Patient Contact Information Contact Name:GOLDENPINKYCHECO Relationship:Friend Address:[address] City:[place] Alternate Phone: State/Zip Code:[place] [address] Email: Financial Information Financial Class:BCOP Primary Plan Desc:[employer] DAYAN PPO Primary Plan Number:[id number] Secondary Plan Desc: Secondary Plan Number: Assessment Information CAGE Questionnaire CAGE Additional Comments Unable to assess. Patient unable to articulate Date Signed: 10/11/2018 11:20 AM Electronically Signed By:Stacey Mehta RN [facility] CM Progress Note CM Note CM Note Notes: patient presents to the ED per EMS. See ED report for details. This CM has met with patient's -caren/tarah/Golden SANCHEZ Golden states that patient had been progressing well since her surgery and last admission in June (see chart from previous admission). Two changes that Golden notes are: 1). Patient stopped taking her blood pressure medication "a while ago" that was prescribed per Dr. Elyse Marmolejo at [facility] 2). Patient started a new blood pressure medication this week which was prescribed per Caridad Becerra NP . Golden states that patient did not feel well after taking this new BP medication earlier this week, informed Caridad, and was instructed to stop taking it. Golden could not explain to this CM how/why patient was seeing a new provider for BP meds. Per Golden, patient's PCP remains Dr. Marmolejo at [facility] Golden explains that she usually sets up patient's medication "one day at a time", and that Golden keeps the medication supply. However, as patient has been doing much better, patient requested to have the medication supply (as of yesterday). Golden found patient's medication bottles scattered all over the floor when she found patient this morning. patient remians arousable but unable to maintain a conversation at this time. CM to follow and available to assist with discharge planning Date Signed: 10/11/2018 11:42 AM Electronically Signed By:Stacey Mehta RN [facility] CM Progress Note CM Note CM Note Notes: 10/12/2018 Case Management Note Chart reviewed. Please see initial ED case management note. Discussed with VU who is recommending 24 hour supervision and outpatient speech therapy. [facility] is listed as room mate Golden [phone]. There is not an electronic or hard copy of [facility] paperwork in the chart. Pt has multiple admissions to [facility] in 2018. Recent discharge on 07/14 was with [facility] and [facility]. Faxed referral to [facility]. PT evals pending. Case Management d/c poc: to be determined. Case Management to follow. Date Signed: 10/12/2018 04:51 PM Electronically Signed By:Sandra Queen RN [facility] Length of stay for Answers: 1 day current admission Acuity / Level of Answers: Yes Care: Did the patient have an inpatient admission? 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 They have agreed that when pt returns home, Golden will resume her role of organizing and delivering pt's medications. D/C Plan: Independent with support from Golden Date Signed: 10/13/2018 12:59 PM Electronically Signed By:Tita Sy Intervention Information Intervention Type:*Incorrect Registration Date of Service:10/11/2018 04:29 PM Patient Type:Observation Staff Member:KHLOE Berrios, [facility] Hours: Discipline: Severity: Comment:
== END 2018-10-13 12:40 | disposition home health service (06) | DRG 92 ==
LOC: EDUNIT# → OBSVTOIN 15:00 → F2W 15:00
PROVIDERS: ADMIT Student in an Organized Health Care Education/Training Program; ATTEND Hospitalist
DX: G92 Toxic encephalopathy (principal); S80.812A Abrasion, left lower leg, initial encounter; F11.20 Opioid dependence, uncomplicated; B02.29 Other postherpetic nervous system involvement; M80.88XA Other osteoporosis with current pathological fracture, vertebra(e), initial encounter for fracture; T40.2X1A Poisoning by other opioids, accidental (unintentional), initial encounter; W19.XXXA Unspecified fall, initial encounter; Y92.003 Bedroom of unspecified non-institutional (private) residence as the place of occurrence of the external cause; E04.2 Nontoxic multinodular goiter; F41.9 Anxiety disorder, unspecified; I10 Essential (primary) hypertension; R06.89 Other abnormalities of breathing; I25.10 Atherosclerotic heart disease of native coronary artery without angina pectoris; Z86.718 Personal history of other venous thrombosis and embolism; Z79.01 Long term (current) use of anticoagulants; Z93.3 Colostomy status; Z87.19 Personal history of other diseases of the digestive system
CPT/HCPCS: 82435-PO; 82565-PO; 82947-PO; 84132-PO; 84295-PO; 84484-ER; 84520-PO; 85014-PO; 92523-GN; 97166-GO; 97535-GO; A9585; G0480; J2060; Q9967

== ENCOUNTER 2019-03-01 03:17 | Emergency (ER) | payer OTHER ==
[2019-03-01 03:52] LABS: PLATELET COUNT 307 10^3/uL (150-400)
[2019-03-01 04:06] LABS: INR 3.15 (0.83-1.16); PROTIME(PATIENT) 30.7 SEC (12.0-15.0)
[2019-03-01] MEDS ORDERED: oxyCODONE IR 5 MG TAB PO ONE (04:50)
[2019-03-01 05:57] VITALS: BP 145/71
--- NOTE | 2019-03-01 05:58 | EDPHY ---
H & P Stated Complaint: seizure Time Seen by Provider: 03/01/19 03:22 HPI/ROS: HPI The patient presents with possible seizure which occurred just prior to arrival , brought in by ambulance. Patient was sleeping in her bed when her housemate heard her yell out and heard a Bang on the ground. She went to her room and noticed that she was lying face down with tonic clonic activity. This lasted for about 2 min and then resolved on its own. Afterwards patient was very tired and confused. 911 was called. Paramedics report no further seizure activity, blood glucose was normal. There was no tongue biting or urinary incontinence. Patient did hit her head when she fell and does use anticoagulants. She has been feeling well lately, however has had an increased oxygen requirement, previously using oxygen only at night and now requiring a during the day as well based on her pulse ox.. REVIEW OF SYSTEMS 10 systems were reviewed and negative with the exception of the elements mentioned in the history of present illness. PMHx: Migraines, hypertension, post herpetic neuralgia, history of pneumonia now uses oxygen, history of PE on Coumadin chronically Soc Hx: Housed with a roommate PHYSICAL General Appearance: Alert, no distress Head: 2 separate hematomas of her left frontal and temporal regions each measuring about 1 cm Eyes: Pupils equal and round no pallor or injection ENT, Mouth: Mucous membranes moist Respiratory: There are no retractions, lungs are clear to auscultation Cardiovascular: Regular rate and rhythm Gastrointestinal: Abdomen is soft and non-tender, no masses, bowel sounds normal Neurological: A&O, moves all extremities Skin: Warm and dry, ecchymoses to both hands Musculoskeletal: Neck is supple non tender Extremities: symmetrical, full range of motion Psychiatric: Patient is oriented X 3, there is no agitation Source: Patient, Family, EMS Exam Limitations: No limitations - Personal History Current Tetanus/Diphtheria Vaccine: Unsure Tetanus Vaccine Date: <10yrs - Medical/Surgical History Hx Asthma: No Hx Chronic Respiratory Disease: No Hx Diabetes: No Hx Cardiac Disease: No Hx Renal Disease: No Hx Cirrhosis: No Hx Alcoholism: No Hx HIV/AIDS: No Hx Splenectomy or Spleen Trauma: No Other PMH: CHRONIC PAIN POST SHINGLES / ULCERS. Migraines, HTN, PNA-USES O2, diverticulitis; ostomy 07/08. pe dvt left leg - Social History Smoking Status: Never smoked Constitutional: Initial Vital Signs Temperature (C) 36.7 C 03/01/19 03:22 Heart Rate 96 03/01/19 03:22 Respiratory Rate 18 03/01/19 03:22 Blood Pressure 153/92 H 03/01/19 03:22 O2 Sat (%) 95 03/01/19 03:22 O2 Delivery Mode Nasal Cannula O2 (L/minute) 2 Allergies/Adverse Reactions: hydrocodone bitartrate [From Vicodin] Allergy (Severe, Verified 10/11/18 10:15) Vomiting ciprofloxacin Allergy (Unknown, Verified 10/11/18 10:15) Vomiting prochlorperazine Allergy (Unknown, Verified 10/11/18 10:15) parkinsonian-like reaction hydrocodone bitartrate Allergy (Unknown, Uncoded 06/30/18 07:24) Vomiting Home Medications: Medication Instructions Recorded SUMAtriptan [Imitrex Nasal [place]] 20 mg NS DAILY PRN 07/18/15 oxyCODONE IR [Oxycodone Ir (*)] 10 mg PO TID PRN 01/06/18 Ondansetron Odt [Zofran Odt 4 mg 4 mg PO Q4HRS PRN 06/12/18 (*)] Warfarin Sodium [Coumadin 2.5MG 2.5 mg PO DAILY16 #30 tab 07/14/18 (*)] Potassium Cl [Klor-Con 10 meq (RX)] 10 meq PO DAILY 10/11/18 oxyCODONE HCL [Oxycontin] 30 mg PO Q12H 10/11/18 Lisinopril [Zestril 10 mg (*)] 10 mg PO DAILY #30 tab 10/13/18 Medical Decision Making - Diagnostics Imaging Results: CT head shows no acute intracranial hemorrhage, interpreted by direct Radiology. Chest x-ray with rib view shows no rib fracture, no pneumonia, interpreted by me , radiology interpretation is pending. Differential Diagnosis: This is a 73-year-old female who lives at home with history of pulmonary embolism on Coumadin, migraines, chronic pain, hypertension, history of diverticulitis with colostomy in place, on home oxygen who presents with what sounds like a seizure on history witnessed by her housemate. Her housemate heard a loud noise in the night and found the patient lying face down shaking in her upper and lower extremities. Afterward she had sonorous respirations and was very confused and slow to respond. Now she is more awake and alert. She does not have any tongue biting or urinary incontinence. She does have hematomas of her left temporal and frontal regions. She is complaining of some left-sided chest wall pain. The patient underwent CT scan of her head given her anticoagulant use. This was unremarkable for any intracranial hemorrhage. Labs were checked and were all unremarkable. Her INR is therapeutic. Chest x-ray was unremarkable for any rib fracture. The patient did report that she had to use her oxygen during the day now as well as during night. I did not notice any pneumonia or cardiomegaly or pulmonary edema that could contribute to her hypoxia. She was monitored for several hours here with no ongoing seizure activity. Given that this is a first-time seizure, I will not start on any antiepileptic medications. She does report to me that she has fallen out of bed several times and hit her head. Because of recurrent head trauma, she could have developed a seizure. Or the fall today could of induced a seizure. It is unclear which came 1st. Either way she feels well enough to go home. We were able to ambulate her to the bathroom. I have advised that she follow up with her primary care doctor if she continues to need more oxygen than her usual 2 L at night. - Data Points Laboratory Results: Laboratory Results 03/01/19 03:40 03/01/19 03:40 Medications Given: Discontinued Medications Oxycodone HCl (Oxycodone Ir) 10 mg PO EDNOW ONE Stop: 03/01/19 04:51 Last Admin: 03/01/19 04:54 Dose: 10 mg Departure - Departure Disposition: Home, Routine, Self-Care Clinical Impression: New onset seizure Condition: Good Instructions: New-Onset Seizure in Adults (ED) Additional Instructions: The cause of your seizure is not clear though could be related to hitting her head if you fell out of bed 1st. Also we know that people who have recurrent head trauma or more likely to have seizures. I do not recommend starting a seizure medication at this time. Make sure to get plenty of rest over the next few days. Take her medications as prescribed. I would talk with your primary care doctor if you continue to need more oxygen during the day. Referrals: Kate Lee MD [[facility] Primary Care Provider] - As per Instructions
== END 2019-03-01 06:19 | disposition home or self-care (01) ==
LOC: EDUNIT#
DX: R56.9 Unspecified convulsions (principal); I10 Essential (primary) hypertension; G43.909 Migraine, unspecified, not intractable, without status migrainosus; Z86.711 Personal history of pulmonary embolism; Z79.01 Long term (current) use of anticoagulants; Z99.81 Dependence on supplemental oxygen; W06.XXXA Fall from bed, initial encounter; Y92.003 Bedroom of unspecified non-institutional (private) residence as the place of occurrence of the external cause